=== PATIENT | male | born 1990 | race Caucasian/White ===

== ENCOUNTER 2016-05-29 19:33 | Emergency (ER) | payer MEDICARE, OTHER ==
[2016-05-29 20:50] VITALS: BP 131/69
--- NOTE | 2016-05-29 21:05 | UC ---
FLU HPI - HPI Summary HPI Summary: Pt c/o URI like symptoms that began 5 days ago. Pt states that his symptoms are not improving and that he is feeling worse today. - History of Current Complaint Chief Complaint: UCGeneralIllness Stated Complaint: COLD Time Seen by Provider: 05/29/16 20:43 Hx Obtained From: Patient Onset/Duration: Gradual Onset, Lasting Days Severity Currently: Mild Severity Initially: Mild Associated Signs & Symptoms: Positive: Cough, Sore Throat, Nasal Congestion - Allergy/Home Medications Allergies/Adverse Reactions: Allergies Allergy/AdvReac Type Severity Reaction Status Date / Time Bupropion [From Wellbutrin] Allergy Severe Anaphylatic Verified 05/29/16 20:44 Shock PMH/Surg Hx/FS Hx/Imm Hx Previously Healthy: Yes Psychological History Of: Reports: Bipolar Disorder, Schizophrenia - Surgical History Surgical History: Yes Surgery Procedure, Year, and Place: T&A age 17 - Family History Known Family History: Positive: Unknown - patient does not know his family history, he is intellectualy impaired, Other - [facility] for URI - Social History Alcohol Use: Occasionally Substance Use Type: None Smoking Status (MU): Never Smoked Tobacco Have You Smoked in the Last Year: No Household Exposure Type: Cigarettes Review of Systems Constitutional: Chills, Fatigue Skin: Negative Eyes: Negative ENT: Sore Throat, Other - nasal congestion Respiratory: Cough Cardiovascular: Negative Genitourinary: Negative Neurovascular: Negative Musculoskeletal: Negative Neurological: Negative Psychological: Negative All Other Systems Reviewed And Are Negative: Yes Physical Exam Triage Information Reviewed: Yes Appearance: Well-Appearing Vital Signs: Initial Vital Signs Temp 99.1 F 05/29/16 20:44 Pulse 80 05/29/16 20:44 Resp 18 05/29/16 20:44 BP 131/69 05/29/16 20:44 Pulse Ox 100 05/29/16 20:44 Eye Exam: Normal, Other - strabismus, ENT Exam: Other ENT: Positive: Pharyngeal erythema, Nasal congestion Neck exam: Normal Respiratory Exam: Normal Cardiovascular Exam: Normal Musculoskeletal Exam: Normal Neurological Exam: Normal Psychological Exam: Normal Skin Exam: Normal Flu Course/Dx - Differential Dx/Diagnosis Differential Diagnosis/HQI/PQRI: Influenza, Upper Respiratory Infection Provider Diagnoses: URI Discharge - Discharge Plan Condition: Stable Disposition: HOME Patient Education Materials: Upper Respiratory Infection (ED) Referrals: Lucinda Cloud MD [Primary Care Provider] -
== END 2016-05-29 21:24 | disposition home or self-care (01) ==
LOC: UCCORT 19:33
DX: J06.9 Acute upper respiratory infection, unspecified (principal); Z88.8 Allergy status to other drugs, medicaments and biological substances; Z77.22 Contact with and (suspected) exposure to environmental tobacco smoke (acute) (chronic)
CPT/HCPCS: 87502; 99211; G0463

== ENCOUNTER 2016-10-13 19:08 | Emergency (ER) | payer MEDICARE, MEDICAID ==
[2016-10-13 19:16] VITALS: BP 129/66
--- NOTE | 2016-10-13 19:30 | ED ---
HPI Chest Pain - HPI Summary HPI Summary: 26 YEAR OLD MALE PRESENTS WITH LEFT SIDED CHEST PAIN. - History of Current Complaint Chief Complaint: UCGeneralIllness Time Seen by Provider: 10/13/16 19:29 - Allergy/Home Medications Allergies/Adverse Reactions: Allergies Allergy/AdvReac Type Severity Reaction Status Date / Time Bupropion [From Wellbutrin] Allergy Severe Anaphylatic Verified 05/29/16 20:44 Shock Clindamycin Allergy Anaphylatic Verified 10/13/16 19:16 Shock PMH/Surg Hx/FS Hx/Imm Hx Psychiatric History: Reports: Hx Schizophrenia, Hx Bipolar Disorder - Surgical History Surgery Procedure, Year, and Place: T&A age 17 Infectious Disease History: No Infectious Disease History: Denies: Hx Clostridium Difficile, Hx Hepatitis, Hx Human Immunodeficiency Virus (HIV), Hx of Known/Suspected MRSA, Hx Shingles, Hx Tuberculosis, Hx Known/ Suspected VRE, Hx Known/Suspected VRSA, History Other Infectious Disease, Traveled Outside the [place] in Last 30 Days - Family History Known Family History: Positive: Unknown - patient does not know his family history, he is intellectualy impaired, Other - psotive [facility] for URI - Social History Alcohol Use: Occasionally Substance Use Type: Reports: None Smoking Status (MU): Never Smoked Tobacco Have You Smoked in the Last Year: No Review of Systems Positive: Chest Pain All Other Systems Reviewed And Are Negative: Yes Physical Exam Triage Information Reviewed: Yes Vital Signs On Initial Exam: Initial Vitals Temp Pulse Resp BP Pulse Ox 37.2 C 91 16 129/66 98 10/13/16 19:11 10/13/16 19:11 10/13/16 19:11 10/13/16 19:11 10/13/16 19:11 Cardiovascular: Positive: Bradycardia Diagnostics - Vital Signs Vital Signs Temp Pulse Resp BP Pulse Ox 10/13/16 19:11 37.2 C 91 16 129/66 98 - Laboratory Lab Statement: Any lab studies that have been ordered have been reviewed, and results considered in the medical decision making process. Chest Pain Course/Dx - Diagnoses Provider Diagnoses: Chest pain Discharge - Discharge Plan Condition: Critical Disposition: [facility]
== END 2016-10-13 20:05 | disposition short-term general hospital (02) ==
LOC: UCCORT 19:08
DX: R07.9 Chest pain, unspecified (principal); Z88.1 Allergy status to other antibiotic agents; Z88.8 Allergy status to other drugs, medicaments and biological substances; R00.1 Bradycardia, unspecified
CPT/HCPCS: 93005; 99213; G0463

== ENCOUNTER 2016-10-22 17:24 | Emergency (ER) | payer MEDICARE, MEDICAID ==
[2016-10-22 19:04] VITALS: BP 146/76
[2016-10-22] MEDS ORDERED: Ibuprofen TAB* 600 MG PO ONE (19:16)
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
--- NOTE | 2016-10-22 20:07 | RAD ---
INDICATION: Trauma. COMPARISON: None. TECHNIQUE: 4 views of each were obtained. FINDINGS: There is no radiographically apparent fracture involving the bones of either hand. On the AP views there is fairly symmetrical flexion at the thumb metacarpal phalangeal joint with extension of the thumb interphalangeal joint. At the left hand there is flexion at the left small finger proximal interphalangeal joint. The remaining visualized bones are intact. IMPRESSION: 1. No definite fracture or dislocation involving the bilateral hands. 2. Fairly symmetric flexion extension morphology involving the thumbs. This may simply be due to patient positioning at the time of image acquisition. Please correlate to physical examination. If the patient's symptoms persist, follow-up imaging is recommended.
[2016-10-22] MEDS ORDERED: Tetan/Diph/Pertus SYR(Tdap)* 0.5 ML SYR(BOOSTRIX) use SYR IM ONE (20:12)
== END 2016-10-22 20:30 | disposition home or self-care (01) ==
LOC: UCCORT 17:24
DX: S60.221A Contusion of right hand, initial encounter (principal); S60.222A Contusion of left hand, initial encounter; S60.512A Abrasion of left hand, initial encounter; S60.511A Abrasion of right hand, initial encounter; Z23 Encounter for immunization; V18.0XXA Pedal cycle driver injured in noncollision transport accident in nontraffic accident, initial encounter; Y92.9 Unspecified place or not applicable; E03.9 Hypothyroidism, unspecified; Z88.1 Allergy status to other antibiotic agents; Z88.8 Allergy status to other drugs, medicaments and biological substances
CPT/HCPCS: 90471; 90715; 99212; A9270-GY; G0463

== ENCOUNTER 2016-10-30 17:17 | Emergency (ER) | payer MEDICARE, OTHER ==
[2016-10-30 17:33] VITALS: BP 125/67
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
== END 2016-10-30 18:13 | disposition home or self-care (01) ==
LOC: UCCORT 17:17
DX: S60.512D Abrasion of left hand, subsequent encounter (principal); V18.0XXD Pedal cycle driver injured in noncollision transport accident in nontraffic accident, subsequent encounter; Z88.1 Allergy status to other antibiotic agents
CPT/HCPCS: 99212; G0463

== ENCOUNTER 2016-11-20 18:05 | Emergency (ER) | payer MEDICARE, MEDICAID ==
[2016-11-20] MEDS ORDERED: Ketorolac INJ* 60 MG/2 ML VIAL IM ONE (18:13)
[2016-11-20] MEDS ORDERED: Ondansetron ODT TAB* 4 MG PO ONE (18:14)
--- NOTE | 2016-11-20 18:46 | UC ---
Ear Complaint HPI - HPI Summary HPI Summary: 26 y/o male PMHX seizures and hypothyroidism presents to the urgent care c/o severe LF ear pain for the past week. Mother states he has been taking amoxicillin 875mg PO BID since 10/30/2016 for otitis media. He still taking it w/ o any improvement since this morning he woke up w/ severe pain. Pt is in severe distress now due to pain. Now with vomiting at the clinic. Pt states his pain is 10/10. Mother and PT denies fever, SOB, chest pain, abdominal pain, diarrhea. dizziness, ALBRIGHT. Mother has not other complains. . - History of Current Complaint Chief Complaint: UCEar Stated Complaint: LEFT EAR PAIN Time Seen by Provider: 11/20/16 18:43 Hx Obtained From: Patient Onset/Duration: Gradual Onset, Lasting Weeks, Still Present Severity Initially: Mild Severity Currently: Severe Pain Intensity: 10 Pain Scale Used: 0-10 Numeric Aggravating Factors: Nothing Alleviating Factors: Nothing - Allergies/Home Medications Allergies/Adverse Reactions: Allergies Allergy/AdvReac Type Severity Reaction Status Date / Time Bupropion [From Wellbutrin] Allergy Severe Anaphylatic Verified 11/20/16 18:23 Shock Clindamycin Allergy Anaphylatic Verified 11/20/16 18:23 Shock Diphenhydramine Allergy Difficulty Verified 11/20/16 18:23 [From Benadryl] Breathing Home Medications: Home Medications Ampicillin CAP* [Ampicillin Cap*] 875 mg PO BID 11/20/16 [History Confirmed 03/27] PMH/Surg Hx/FS Hx/Imm Hx Previously Healthy: Yes Endocrine History: Hypothyroidism Neurological History: Seizures Psychological History: Bipolar Disorder - Surgical History Surgical History: Yes Surgery Procedure, Year, and Place: T&A age 17 - Family History Known Family History: Positive: Unknown - patient does not know his family history, he is intellectualy impaired - Social History Occupation: Disabled Lives: With Family Alcohol Use: Occasionally Substance Use Type: None Smoking Status (MU): Never Smoked Tobacco Have You Smoked in the Last Year: No Household Exposure Type: Cigarettes - Immunization History Most Recent Tetanus Shot: Unknown Review of Systems Constitutional: Negative Skin: Negative Eyes: Negative ENT: Ear Ache - LF ear pain Respiratory: Negative Cardiovascular: Negative Gastrointestinal: Negative Genitourinary: Negative Motor: Negative Neurovascular: Negative Musculoskeletal: Negative Neurological: Negative Psychological: Negative All Other Systems Reviewed And Are Negative: Yes Physical Exam Triage Information Reviewed: Yes Appearance: Well-Appearing, Well-Nourished, Pain Distress - severe Vital Signs: Initial Vital Signs Temp 97.8 F 11/20/16 18:26 Pulse 112 11/20/16 18:26 Resp 28 11/20/16 18:26 BP 144/105 11/20/16 18:26 Pulse Ox 100 11/20/16 18:26 Vital Signs Reviewed: Yes Eye Exam: Normal Eyes: Positive: Conjunctiva Clear - PERRLA, EOMI ENT: Positive: Hearing grossly normal, Pharynx normal, TMs normal - RT external ear canal and TM WNL, LF external ear canal with moderate erythema, mild yellowish drainage. LF TM WNL. Negative: Nasal congestion, Nasal drainage Dental Exam: Normal Neck exam: Normal Neck: Positive: Supple, Nontender, No Lymphadenopathy Respiratory Exam: Normal Respiratory: Positive: Chest non-tender, Lungs clear, Normal breath sounds Cardiovascular Exam: Normal Cardiovascular: Positive: RRR, No Murmur, Pulses Normal Abdominal Exam: Normal Abdomen Description: Positive: Nontender, No Organomegaly, Soft. Negative: CVA Tenderness (R), CVA Tenderness (L) Bowel Sounds: Positive: Present Musculoskeletal Exam: Normal Musculoskeletal: Positive: Strength Intact, ROM Intact, No Edema Neurological Exam: Normal Psychological Exam: Normal Skin Exam: Normal Ear Complaint Course/Dx - Course Course Of Treatment: 26 y/o male PMHX seizures and hypothyroidism presents to the urgent care c/o severe LF ear pain for the past week. Mother states he has been taking amoxicillin 875mg PO BID since 10/30/2016 for otitis media. He still taking it w/o any improvement. This morning he woke up w/ severe pain. Pt is in severe distress now due to pain. Now with vomiting at the clinic. Pt states his pain is 10/10. Mother and PT denies fever, SOB, chest pain, abdominal pain , diarrhea. dizziness, ALBRIGHT.HX obtained. Pt given Toradol Im inj and Zofran Po to alleviate symptoms. After 15min Pt pain decrease and vomiting stopped. Pt felt better. Pt Rx Corticosporin Otic drops, Ibuprofen PO and Compazine to alleviate symptoms of Otitis externa and vomiting. Advised to finish the full course of ABX he has at home. Mother understood and agreed. - Differential Dx/Diagnosis Differential Diagnosis/HQI/PQRI: Barotrauma, Cerumen Impaction, Mastoiditis, Otitis Externa, Otitis Media Provider Diagnoses: 1-Acute otitis externa. 2-Vomiting. 3-elevated blood pressure w/o HX of HTN Discharge - Discharge Plan Condition: Stable Disposition: HOME Prescriptions: Ibuprofen TAB* [Motrin TAB* 800 MG] 800 mg PO Q6H #20 tab Neomyc/Polym/HC 1% OTIC SUSP* [Cortisporin Otic Susp 1%*] 4 drop BOTH EARS QID # 1 btl Prochlorperazine TAB* [Compazine Tab*] 5 mg PO Q8H PRN #9 tab PRN Reason: Vomiting Patient Education Materials: Otitis Externa (ED), Low Sodium Diet (ED) Referrals: Tana Shultz MD [Medical Doctor] - 3 Days Additional Instructions: 1-Please apply otic drops as directed. Take ibuprofen PO after meals to alleviate pain and swelling. Take the Zofran PO if your continue with nausea and vomiting. If symptoms do not improve or worsen please f/u with Dr Harmon in 3 days for further management. 2-Your BP is elevated today please decrease salt intake, monitor BP and f/u with PCP for further evaluation and treatment.
[2016-11-20 19:02] VITALS: BP 136/66
== END 2016-11-20 19:13 | disposition home or self-care (01) ==
LOC: UCCORT 18:05
DX: H60.502 Unspecified acute noninfective otitis externa, left ear (principal); R11.10 Vomiting, unspecified; R03.0 Elevated blood-pressure reading, without diagnosis of hypertension; E03.9 Hypothyroidism, unspecified; R56.9 Unspecified convulsions; F31.9 Bipolar disorder, unspecified; Z88.1 Allergy status to other antibiotic agents; Z88.8 Allergy status to other drugs, medicaments and biological substances; Z77.22 Contact with and (suspected) exposure to environmental tobacco smoke (acute) (chronic)
CPT/HCPCS: 96372; 99212; A9270-GY; G0463; J1885

== ENCOUNTER 2016-12-23 18:56 | Emergency (ER) | payer MEDICARE ==
[2016-12-23 19:22] VITALS: BP 126/74
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
[2016-12-23] MEDS ORDERED: Amoxicillin PO (*) 500 MG CAP PO ONE (20:34)
== END 2016-12-23 20:49 | disposition home or self-care (01) ==
LOC: UCCORT 18:56
DX: K04.7 Periapical abscess without sinus (principal); K03.81 Cracked tooth; H61.22 Impacted cerumen, left ear; S50.811A Abrasion of right forearm, initial encounter; V19.9XXA Pedal cyclist (driver) (passenger) injured in unspecified traffic accident, initial encounter; Y92.9 Unspecified place or not applicable; Z11.4 Encounter for screening for human immunodeficiency virus [HIV]
CPT/HCPCS: 36415; 86703; 99213; A9270-GY; G0463

== ENCOUNTER 2017-01-02 18:35 | Emergency (ER) | payer MEDICARE, OTHER ==
[2017-01-02 18:51] VITALS: BP 121/82
--- NOTE | 2017-01-02 19:05 | UC ---
Throat Pain/Nasal [place]ito HPI - HPI Summary HPI Summary: ST, nasal congestion, cough, and trouble breathing starting 4-5 days ago. Has been using inhaler every 4 hours without relief. No fevers. Pt has seizure d/o, last seizure was 2.5 weeks ago. - History of Current Complaint Stated Complaint: THROAT,COUGH Time Seen by Provider: 01/02/17 18:43 Hx Obtained From: Patient Onset/Duration: Gradual Onset, Lasting Days Severity: Moderate Cough: Productive Associated Signs & Symptoms: Positive: Wheezing, Hoarseness, Nasal Discharge. Negative: Fever, Vomiting, Rash - Allergies/Home Medications Allergies/Adverse Reactions: Allergies Allergy/AdvReac Type Severity Reaction Status Date / Time Bupropion [From Wellbutrin] Allergy Severe Anaphylatic Verified 01/02/17 18:47 Shock Clindamycin Allergy Anaphylatic Verified 01/02/17 18:47 Shock Diphenhydramine Allergy Difficulty Verified 01/02/17 18:47 [From Benadryl] Breathing PMH/Surg Hx/FS Hx/Imm Hx Endocrine History: Hypothyroidism Cardiovascular History: Myocardial Infarction Neurological History: Seizures - Surgical History Surgical History: Yes Surgery Procedure, Year, and Place: T&A age 17 - Family History Known Family History: Positive: Unknown - patient does not know his family history, he is intellectualy impaired, Other - [facility] for URI - Social History Occupation: Disabled Lives: With Family Alcohol Use: None Substance Use Type: None Smoking Status (MU): Never Smoked Tobacco Have You Smoked in the Last Year: No Household Exposure Type: Cigarettes - Immunization History Most Recent Tetanus Shot: 10/22/16 Review of Systems Constitutional: Negative Skin: Negative Eyes: Negative ENT: Sore Throat, Nasal Discharge Respiratory: Shortness Of Breath, Cough, Other Cardiovascular: Negative Gastrointestinal: Negative Genitourinary: Negative Motor: Negative Neurovascular: Negative Musculoskeletal: Negative Neurological: Negative Psychological: Negative Is Patient Immunocompromised?: No All Other Systems Reviewed And Are Negative: Yes Physical Exam Triage Information Reviewed: Yes Appearance: Well-Appearing, No Pain Distress, Other: - poor hygeine Vital Signs: Initial Vital Signs Temp 99.9 F 01/02/17 18:48 Pulse 92 01/02/17 18:48 Resp 16 01/02/17 18:48 BP 121/82 01/02/17 18:48 Pulse Ox 97 01/02/17 18:48 Vital Signs Reviewed: Yes Eye Exam: Normal Eyes: Positive: Conjunctiva Clear ENT: Positive: Hearing grossly normal, Pharyngeal erythema - mild, Nasal congestion, TMs normal - visible sclerosis Neck exam: Normal Neck: Positive: Supple, Nontender, No Lymphadenopathy Respiratory Exam: Other - cough Respiratory: Positive: No respiratory distress, No accessory muscle use Cardiovascular Exam: Normal Cardiovascular: Positive: RRR, No Murmur Musculoskeletal Exam: Normal Neurological Exam: Normal Neurological: Positive: Alert Psychological Exam: Normal Skin Exam: Normal Throat Pain/Nasal Course/Dx - Differential Dx/Diagnosis Provider Diagnoses: URI, likely viral Discharge - Discharge Plan Condition: Stable Disposition: HOME Prescriptions: predniSONE TAB* [Deltasone TAB*] 40 mg PO DAILY #8 tab Patient Education Materials: Upper Respiratory Infection (ED) Referrals: Мария Harmon MD [Primary Care Provider] - 5 Days Additional Instructions: Start the prednisone TOMORROW. This should help with your breathing and ( possibly) your cough. It can take 2-3 weeks to fully recover from a respiratory virus. You should not have any new fevers or worsening symptoms.
== END 2017-01-02 19:17 | disposition home or self-care (01) ==
LOC: UCCORT 18:35
DX: J06.9 Acute upper respiratory infection, unspecified (principal); E03.9 Hypothyroidism, unspecified; I21.3 ST elevation (STEMI) myocardial infarction of unspecified site; R56.9 Unspecified convulsions; Z88.1 Allergy status to other antibiotic agents; Z88.8 Allergy status to other drugs, medicaments and biological substances; Z77.22 Contact with and (suspected) exposure to environmental tobacco smoke (acute) (chronic)
CPT/HCPCS: 87651; 99212; G0463

== ENCOUNTER 2017-01-12 19:16 | Emergency (ER) | payer MEDICARE, MEDICAID ==
[2017-01-12 19:58] VITALS: BP 138/78
--- NOTE | 2017-02-02 11:23 | UC ---
Skin Complaint HPI - HPI Summary HPI Summary: Patient presents to the with CC of small laceration to the lip and the right finger from his tooth today. He is unsure how he sustained the injuries, but states he likely fell into the his hand when he tripped. No blood loss per patient. He states this has happened before. Denies other injuries at this time. Denies hitting his head or LOC. - History of Current Complaint Chief Complaint: UCDentalProblem Time Seen by Provider: 01/12/17 20:26 Stated Complaint: LIP AND FINGER LAC Hx Obtained From: Patient Onset/Duration: Sudden Onset Timing: Constant Onset Severity: Mild Current Severity: Mild Pain Intensity: 1 Pain Scale Used: 0-10 Numeric Location: Diffuse - right lip/ right hand Aggravating Factor(s): Nothing Alleviating Factor(s): Nothing Associated Signs & Symptoms: Positive: Negative Related History: Trauma - Allergy/Home Medications Allergies/Adverse Reactions: Allergies Allergy/AdvReac Type Severity Reaction Status Date / Time Bupropion [From Wellbutrin] Allergy Severe Anaphylatic Verified 01/21/17 15:08 Shock Clindamycin Allergy Anaphylatic Verified 01/21/17 15:08 Shock Diphenhydramine Allergy Difficulty Verified 01/21/17 15:08 [From Benadryl] Breathing Review of Systems Constitutional: Negative Skin: Negative Respiratory: Negative Cardiovascular: Negative Gastrointestinal: Negative Neurovascular: Negative Musculoskeletal: Negative Neurological: Negative Psychological: Negative Is Patient Immunocompromised?: No All Other Systems Reviewed And Are Negative: Yes PMH/Surg Hx/FS Hx/Imm Hx Previously Healthy: Yes - Surgical History Surgical History: Yes Surgery Procedure, Year, and Place: T&A age 17 - Family History Known Family History: Positive: Unknown - patient does not know his family history, he is intellectualy impaired, Other - psotive [facility] for URI - Social History Occupation: Employed Part-time Lives: With Family Alcohol Use: Rare Substance Use Type: None Smoking Status (MU): Never Smoked Tobacco Have You Smoked in the Last Year: No Household Exposure Type: Cigarettes - Immunization History Most Recent Tetanus Shot: 10/22/16 Physical Exam Triage Information Reviewed: Yes Appearance: Well-Appearing, Well-Nourished Vital Signs: Initial Vital Signs Temp 99.2 F 01/12/17 19:54 Pulse 75 01/12/17 19:54 Resp 18 01/12/17 19:54 BP 138/78 01/12/17 19:54 Pulse Ox 100 01/12/17 19:54 Vital Signs Reviewed: Yes Eye Exam: Normal Eyes: Positive: Conjunctiva Clear Neck exam: Normal Neck: Positive: Supple Respiratory Exam: Normal Respiratory: Positive: Chest non-tender, Lungs clear Neurological Exam: Normal Neurological: Positive: Alert Psychological: Positive: Normal Response To Family, Age Appropriate Behavior Skin Exam: Normal Course/Dx - Course Course Of Treatment: Patient presents with .5cm superificial abrasion to the right lower lip and 1cm superficial laceration to the right hand without need of adhesive or sutures. He is encouraged to buy dental wax for the sharp tooth and is encouraged to return to the dentist to obtain a filing down of the tooth so it is not sharp. he agrees with plan and is OK with discharge. - Diagnoses Provider Diagnoses: Abrasion to the lip Discharge - Discharge Plan Condition: Stable Disposition: HOME Referrals: Мария Harmon MD [Primary Care Provider] - Additional Instructions: OVER THE COUNTER DENTAL WAX APPLY OVER THE METAL PIECE IN THE TOOTH FOLLOW UP WITH DENTIST CORNELL
== END 2017-01-12 20:30 | disposition home or self-care (01) ==
LOC: UCCORT 19:16
DX: S00.511A Abrasion of lip, initial encounter (principal); S61.411A Laceration without foreign body of right hand, initial encounter; X58.XXXA Exposure to other specified factors, initial encounter; Y93.9 Activity, unspecified; Y92.9 Unspecified place or not applicable; Z88.1 Allergy status to other antibiotic agents; Z88.8 Allergy status to other drugs, medicaments and biological substances; Z77.22 Contact with and (suspected) exposure to environmental tobacco smoke (acute) (chronic)
CPT/HCPCS: 99211; G0463

== ENCOUNTER 2017-01-16 19:43 | Emergency (ER) | payer MEDICARE, MEDICAID ==
[2017-01-16 19:58] VITALS: BP 144/77
--- NOTE | 2017-01-16 20:02 | UC ---
Shoulder Pain HPI - History of Current Complaint Chief Complaint: UCUpperExtremity Stated Complaint: LEFT ARM PAIN - Allergies/Home Medications Allergies/Adverse Reactions: Allergies Allergy/AdvReac Type Severity Reaction Status Date / Time Bupropion [From Wellbutrin] Allergy Severe Anaphylatic Verified 01/16/17 19:58 Shock Clindamycin Allergy Anaphylatic Verified 01/16/17 19:58 Shock Diphenhydramine Allergy Difficulty Verified 01/16/17 19:58 [From Benadryl] Breathing PMH/Surg Hx/FS Hx/Imm Hx - Surgical History Surgical History: Yes Surgery Procedure, Year, and Place: T&A age 17 - Family History Known Family History: Positive: Unknown - patient does not know his family history, he is intellectualy impaired, Other - [facility] for URI - Social History Alcohol Use: Rare Substance Use Type: None Smoking Status (MU): Never Smoked Tobacco Have You Smoked in the Last Year: No Household Exposure Type: Cigarettes - Immunization History Most Recent Tetanus Shot: 10/22/16 Physical Exam Vital Signs: Initial Vital Signs Temp 99.2 F 01/16/17 19:49 Pulse 87 01/16/17 19:49 Resp 18 01/16/17 19:49 BP 144/77 01/16/17 19:49
== END 2017-01-16 20:27 | disposition home or self-care (01) ==
LOC: UCCORT 19:43
DX: S46.912A Strain of unspecified muscle, fascia and tendon at shoulder and upper arm level, left arm, initial encounter (principal); I10 Essential (primary) hypertension; F17.210 Nicotine dependence, cigarettes, uncomplicated; X58.XXXA Exposure to other specified factors, initial encounter; Z88.1 Allergy status to other antibiotic agents; Z88.8 Allergy status to other drugs, medicaments and biological substances
CPT/HCPCS: 99212; G0463

== ENCOUNTER 2017-01-21 14:51 | Emergency (ER) | payer MEDICARE, MEDICAID ==
[2017-01-21 15:08] VITALS: BP 139/78
--- NOTE | 2017-01-21 16:17 | RAD ---
Indication: Woke up with LEFT side neck pain. Comparison: April 02, 2009 CT. Technique: AP, open-mouth odontoid, lateral, and oblique views cervical spine. Report: Kyphosis without facet subluxation at any level. Negative for fracture or focal osseous lesion. Preserved disc spaces. Unremarkable prevertebral soft tissue contours. IMPRESSION: Kyphosis new compared with the 2009 exam without facet subluxation at any level. The exam is otherwise unremarkable.
--- NOTE | 2017-01-21 16:47 | UC ---
Neck Pain HPI - HPI Summary HPI Summary: AWOKE THIS MORNING WITH NECK PAIN AND MUSCLE SPASMS ON LEFT SIDE. NO CHEST PAIN. NO FEVER. NO RASH. NO SHORTNESS OF BREATH. NO KNOWN TRAUMA OR INJURY. - History of Current Complaint Chief Complaint: UCUpperExtremity Stated Complaint: NECK PAIN Time Seen by Provider: 01/21/17 15:17 Hx Obtained From: Patient, Family/[facility] Manager Onset/Duration: Sudden Onset, Lasting Hours Severity: Moderate Pain Intensity: 10 Pain Scale Used: 0-10 Numeric Location: Discrete At: - LEFT PARASPINAL CERVICAL MUSCLES Character: Dull, Aching, Stiff, Spasmotic Aggravating Factors: Nothing Alleviating Factors: Nothing Associated Signs & Symptoms: Positive: Negative. Negative: Bruising, Fever, Nuchal Rigity - Risk Factors Meningitis Risk Factors: Negative - Allergies/Home Medications Allergies/Adverse Reactions: Allergies Allergy/AdvReac Type Severity Reaction Status Date / Time Bupropion [From Wellbutrin] Allergy Severe Anaphylatic Verified 01/21/17 15:08 Shock Clindamycin Allergy Anaphylatic Verified 01/21/17 15:08 Shock Diphenhydramine Allergy Difficulty Verified 01/21/17 15:08 [From Benadryl] Breathing PMH/Surg Hx/FS Hx/Imm Hx Previously Healthy: Yes - Surgical History Surgical History: Yes Surgery Procedure, Year, and Place: T&A age 17 - Family History Known Family History: Positive: Unknown - patient does not know his family history, he is intellectualy impaired, Other - [facility]otive [facility] for URI - Social History Occupation: Disabled Lives: With Family Alcohol Use: Occasionally Substance Use Type: None Smoking Status (MU): Never Smoked Tobacco Have You Smoked in the Last Year: No Household Exposure Type: Cigarettes - Immunization History Most Recent Tetanus Shot: 10/22/16 Review Of Systems Constitutional: Positive: Negative Skin: Positive: Negative Eyes: Positive: Negative ENT: Positive: Negative Respiratory: Positive: Negative Cardiovascular: Positive: Negative Gastrointestinal: Positive: Negative Genitourinary: Positive: Negative Musculoskeletal: Positive: Arthralgia, Myalgia Neurological: Positive: Negative Psychological: Positive: Negative All Other Systems Reviewed And Are Negative: Yes Physical Exam Triage Information Reviewed: Yes Appearance: Well-Appearing, Well-Nourished, Pain Distress Vital Signs: Initial Vital Signs Temp 99.3 F 01/21/17 15:03 Pulse 73 01/21/17 15:03 Resp 22 01/21/17 15:03 BP 139/78 01/21/17 15:03 Pulse Ox 99 01/21/17 15:03 Vital Signs Reviewed: Yes Eye Exam: Normal ENT Exam: Normal ENT: Positive: Normal ENT inspection Dental Exam: Normal Neck exam: Normal Neck: Positive: Supple, Nontender, No Lymphadenopathy Respiratory Exam: Normal Respiratory: Positive: Chest non-tender, Lungs clear, Normal breath sounds, No respiratory distress, No accessory muscle use Cardiovascular Exam: Normal Cardiovascular: Positive: RRR, No Murmur, Pulses Normal, Brisk Capillary Refill Abdominal Exam: Normal Musculoskeletal: Positive: Strength Intact, ROM Intact, No Edema, ROM Limited @ - LEF, Other: - TENDERNESS TO PALPATION LEFT PARASPINAL CERVICAL MM Neurological Exam: Normal Psychological Exam: Normal Skin Exam: Normal Neck Pain Course/Dx - Differential Dx/Diagnosis Differential Dx/HQI/PQRI: Cervical Fracture, Sprain, Strain, Torticollis Provider Diagnoses: LEFT TORTICOLLIS. CERVICAL KYPHOSIS. Discharge - Discharge Plan Condition: Stable Disposition: HOME Prescriptions: Diazepam TAB(*) [Valium TAB(*)] 5 mg PO TID PRN #12 tab MDD THREE TABS PRN Reason: Spasms Patient Education Materials: Spasmodic Torticollis (ED) Referrals: Мария Harmon MD [Primary Care Provider] -
== END 2017-01-21 16:35 | disposition home or self-care (01) ==
LOC: UCCORT 14:51
DX: M43.6 Torticollis (principal); M40.202 Unspecified kyphosis, cervical region; Z88.1 Allergy status to other antibiotic agents; Z88.8 Allergy status to other drugs, medicaments and biological substances; Z77.22 Contact with and (suspected) exposure to environmental tobacco smoke (acute) (chronic)
CPT/HCPCS: 72050; 99213; G0463

== ENCOUNTER 2017-03-10 15:55 | Emergency (ER) | payer MEDICARE, OTHER ==
[2017-03-10 16:11] VITALS: BP 134/71
--- NOTE | 2017-03-10 17:08 | RAD ---
INDICATION: Left thumb injury COMPARISON: None TECHNIQUE: AP, lateral, and oblique views were obtained. FINDINGS: There is no acute bony change. 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 The soft tissues are intact IMPRESSION: NO ACUTE BONY CHANGE.
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
== END 2017-03-10 17:45 | disposition home or self-care (01) ==
LOC: UCCORT 15:55
DX: S63.602A Unspecified sprain of left thumb, initial encounter (principal); X58.XXXA Exposure to other specified factors, initial encounter; Y93.55 Activity, bike riding; Y92.9 Unspecified place or not applicable; Z88.1 Allergy status to other antibiotic agents; Z88.8 Allergy status to other drugs, medicaments and biological substances; Z77.22 Contact with and (suspected) exposure to environmental tobacco smoke (acute) (chronic)
CPT/HCPCS: 99211; G0463

== ENCOUNTER 2017-03-17 16:56 | Emergency (ER) | payer OTHER ==
[2017-03-17 17:32] VITALS: BP 134/72
--- NOTE | 2017-03-17 17:46 | UC ---
Skin Complaint HPI - HPI Summary HPI Summary: Pt c/o painful abscess to posterior upper right thigh. - History of Current Complaint Chief Complaint: UCSkin Time Seen by Provider: 03/17/17 17:35 Stated Complaint: RT LEG SKIN COMPLAINT Hx Obtained From: Patient Onset/Duration: Sudden Onset, Still Present Skin Exposure Onset/Duration: Days Ago Timing: Constant Onset Severity: Mild Current Severity: Mild Location: Discrete - right upper posterior right thigh Character: Swelling, Redness, Raised, Painful Aggravating Factor(s): Touch Alleviating Factor(s): Other - pt's mother "popped" abscess today prior to arrival. Associated Signs & Symptoms: Positive: Drainage, Tenderness - Allergy/Home Medications Allergies/Adverse Reactions: Allergies Allergy/AdvReac Type Severity Reaction Status Date / Time Bupropion [From Wellbutrin] Allergy Severe Anaphylatic Verified 03/17/17 17:32 Shock Clindamycin Allergy Anaphylatic Verified 03/17/17 17:32 Shock Diphenhydramine Allergy Difficulty Verified 03/17/17 17:32 [From Benadryl] Breathing Review of Systems Constitutional: Negative Skin: Other - abscess Eyes: Negative ENT: Negative Respiratory: Negative Cardiovascular: Negative Gastrointestinal: Negative Genitourinary: Negative Motor: Negative Neurovascular: Negative Musculoskeletal: Negative Neurological: Negative Psychological: Negative Is Patient Immunocompromised?: No All Other Systems Reviewed And Are Negative: Yes PMH/Surg Hx/FS Hx/Imm Hx Previously Healthy: Yes - Surgical History Surgical History: Yes Surgery Procedure, Year, and Place: T&A age 17 - Family History Known Family History: Positive: Unknown - patient does not know his family history, he is intellectualy impaired, Respiratory Disease Negative: Other - NO JOINT LAXITY - Social History Occupation: Employed Full-time Lives: With Family Alcohol Use: Occasionally Substance Use Type: None Smoking Status (MU): Never Smoked Tobacco Have You Smoked in the Last Year: No Household Exposure Type: Cigarettes - Immunization History Most Recent Influenza Vaccination: 8147-3401 Most Recent Tetanus Shot: 10/22/16 Physical Exam Triage Information Reviewed: Yes Appearance: Well-Appearing Vital Signs: Initial Vital Signs Temp 99.1 F 03/17/17 17:23 Pulse 80 03/17/17 17:23 Resp 17 03/17/17 17:23 BP 134/72 03/17/17 17:23 Pulse Ox 99 12/07/17 17:23 Vital Signs Reviewed: Yes ENT Exam: Normal Neck exam: Normal Respiratory Exam: Normal Cardiovascular Exam: Normal Musculoskeletal Exam: Normal Neurological Exam: Normal Psychological Exam: Normal Skin Exam: Other - abscess to right upper posterior thigh, without palpable flucuant mass, Course/Dx - Differential Diagnoses - Skin Complaint Differential Diagnoses: Abscess, Other - folliculitis - Diagnoses Provider Diagnoses: folliculitis. MRSA? Discharge - Discharge Plan Condition: Stable Disposition: HOME Prescriptions: Sulfamethox/Trimethoprim DS* [Bactrim DS 800/160 TAB*] 1 tab PO Q12H #14 tab Patient Education Materials: Folliculitis (ED) Referrals: Мария Harmon MD [Primary Care Provider] - If Needed
== END 2017-03-17 18:06 | disposition home or self-care (01) ==
LOC: UCCORT 16:56
DX: L73.9 Follicular disorder, unspecified (principal); Z88.8 Allergy status to other drugs, medicaments and biological substances; Z88.1 Allergy status to other antibiotic agents
CPT/HCPCS: 99212; G0463

== ENCOUNTER 2017-03-27 17:24 | Emergency (ER) | payer OTHER ==
[2017-03-27 17:33] VITALS: BP 144/77
[2017-03-27] MEDS ORDERED: methylPREDNISolone 125 MG* 2 ML VIAL IV ONE (17:48)
[2017-03-27] MEDS ORDERED: methylPREDNISolone 125 MG* 2 ML VIAL IM ONE (17:50)
--- NOTE | 2017-03-27 17:53 | UC ---
Skin Complaint HPI - HPI Summary HPI Summary: rash/hives all over body except face. took otc anti itch cream with some relief but rash still there no new detergents/soap but mom has cats and he thinks has had steroids before without any s/e. - History of Current Complaint Chief Complaint: UCSkin Time Seen by Provider: 03/27/17 17:43 Stated Complaint: SKIN COMPLAINT Hx Obtained From: Patient Onset/Duration: Lasting Weeks Skin Exposure Onset/Duration: Weeks Ago Onset Severity: Moderate Current Severity: Moderate Location: Diffuse Character: Pruritus Aggravating Factor(s): Touch Alleviating Factor(s): OTC Meds Associated Signs & Symptoms: Positive: Negative - Allergy/Home Medications Allergies/Adverse Reactions: Allergies Allergy/AdvReac Type Severity Reaction Status Date / Time Bupropion [From Wellbutrin] Allergy Severe Anaphylatic Verified 03/27/17 17:28 Shock Clindamycin Allergy Anaphylatic Verified 03/27/17 17:28 Shock Diphenhydramine Allergy Difficulty Verified 03/27/17 17:28 [From Benadryl] Breathing Review of Systems Constitutional: Negative Skin: Rash Eyes: Negative ENT: Negative Respiratory: Negative Cardiovascular: Negative Gastrointestinal: Negative Genitourinary: Negative Neurovascular: Negative Neurological: Negative Is Patient Immunocompromised?: No All Other Systems Reviewed And Are Negative: Yes PMH/Surg Hx/FS Hx/Imm Hx Previously Healthy: Yes Psychological History: Bipolar Disorder - Surgical History Surgical History: Yes Surgery Procedure, Year, and Place: T&A age 17 - Family History Known Family History: Positive: Unknown - patient does not know his family history, he is intellectualy impaired, Respiratory Disease Negative: Other - NO JOINT LAXITY - Social History Alcohol Use: Occasionally Substance Use Type: None Smoking Status (MU): Never Smoked Tobacco Have You Smoked in the Last Year: No Household Exposure Type: Cigarettes - Immunization History Most Recent Influenza Vaccination: 2017 Most Recent Tetanus Shot: 10/22/16 Physical Exam Triage Information Reviewed: Yes Appearance: Well-Appearing Vital Signs: Initial Vital Signs Temp 97.8 F 03/27/17 17:30 Pulse 77 03/27/17 17:30 Resp 16 03/27/17 17:30 BP 144/77 03/27/17 17:30 Pulse Ox 100 03/27/17 17:30 Vital Signs Reviewed: Yes Eye Exam: Normal ENT Exam: Normal Neck: Positive: Supple Respiratory Exam: Normal Cardiovascular Exam: Normal Abdominal Exam: Normal Skin Exam: Other - rash all over body some red raised no open areas or drainage present Skin: Positive: rashes Course/Dx - Course Course Of Treatment: nurse gave solumedrol IM x 1 dose now - will wait 20 minutes - tolerated well. pt to talk with mom re checking cats for fleas if rash continues. start dose pack tomorrow am - discussed use and directions on pkg - discussed common side effects with understanding. f/u pcp 1 week if symptoms not resolving - Diagnoses Provider Diagnoses: rash/tick bites Discharge - Discharge Plan Condition: Good Disposition: HOME Prescriptions: Methylprednisolone [Medrol Dosepak 4 MG*] 4 mg PO .SEE HERIBERTO INSTRUCTION 5 Days # 20 tab Patient Education Materials: Insect Bite or Sting (ED), Dermatitis (ED) Referrals: Мария Harmon MD [Primary Care Provider] - 1 Week
== END 2017-03-27 18:18 | disposition home or self-care (01) ==
LOC: UCCORT 17:24
DX: T14.8XXA Other injury of unspecified body region, initial encounter (principal); R21 Rash and other nonspecific skin eruption; W57.XXXA Bitten or stung by nonvenomous insect and other nonvenomous arthropods, initial encounter; Y93.9 Activity, unspecified; Y92.9 Unspecified place or not applicable; Z88.1 Allergy status to other antibiotic agents; Z88.8 Allergy status to other drugs, medicaments and biological substances; F31.9 Bipolar disorder, unspecified; Z77.22 Contact with and (suspected) exposure to environmental tobacco smoke (acute) (chronic)
CPT/HCPCS: 96372; 99212; G0463; J2930

== ENCOUNTER 2017-04-02 11:57 | Emergency (ER) | payer OTHER ==
--- OUTSIDE RECORDS SUMMARY | 2017-04-02 12:06 | XMS REPORT ---
:1990 External Reference #:[id number] Author Organization [employer] Address [address] [place] [address] Phone [phone] Care Team Providers Name Role Phone Karla Harmon MD Care Team Information Dag Sprayer Unavailable Karla Harmon MD Primary Care Physician Unavailable Payers Type Date Identification Numbers Payment Provider Subscriber Commercial Policy Number: [id number] [place] Medicare Doug Dawn PayID: [id number] [address] [place] [address] Medicaid Policy Number: [id number] Medicaid Doug Dawn PayID: [id number] [address] [place] [address] Problems Description No Information Family History Date Family Member(s) Problem(s) Comments Father Cancer Social History Type Date Description Comments Cigarette Use Never Smoked Cigarettes ETOH Use Rare Use Of Alcohol Recreational Drug Use Never Used Drugs Allergies, Adverse Reactions, Alerts Date Description Reaction Status Severity Comments 06/06/2015 Risperdal TONGUE SWELLING active 06/06/2015 Penicillin DIFFICULTY BREATHING active 06/06/2015 Clindamycin active 06/06/2015 Montelukast active Medications Medication Date Status Form Strength Qnty SIG Indications Ordering Provider Ziprasidone Active Capsules 80mg Unknown HCL 000 Bupropion HCL Active Tablets 150mg Unknown [address] 500mg 2 by mouth Unknown 000 at at bedtime [place] Active Tablets ER 450mg Unknown Carbonate ER 000 Seroquel Active Tablets 10mg Unknown 000 Vital Signs Date Vital Result Comment 03/17/2017 Weight 160.00 lb Height 68 inches 5'8" BMI (Body Mass Index) 24.3 kg/m2 BP Systolic 113 mmHg BP Diastolic 78 mmHg Heart Rate 73 /min O2 % BldC Oximetry 99 % Body Temperature 99.3 F [place] Arc Score 10 Neck Circumference in inches 15.5 Pain Level 0 06/26/2015 Weight 137.00 lb Height 68 inches 5'8" BMI (Body Mass Index) 20.8 kg/m2 Body Temperature 99.0 F 06/06/2015 Weight 136.00 lb Height 68 inches 5'8" BMI (Body Mass Index) 20.7 kg/m2 BP Systolic 108 mmHg BP Diastolic 66 mmHg Heart Rate 60 /min O2 % BldC Oximetry 96 % Body Temperature 98.6 F Results Description No Information Procedures Date CPT Code Description Status 06/19/2015 13765 Dil. Of Esoph. By Sound Or Bougie Completed 06/19/2015 97293 Esophagoscopy/Diagnostic Completed 06/19/2015 40412 Larynogoscopy,Dir. With Or W/O Trach. Diag. W/Opert. Completed Microscope 06/19/2015 24289 Anesthesia, Neck Organ Surgery Not Otherwise Spec 1Yr Completed Or Older 06/06/2015 33174 Fiberoptic Laryngoscopy,Diag. Completed 01/16/2009 68696 Acoustic Reflex Testing Completed 01/16/2009 51033 Tympanometry Completed 01/16/2009 41606 Audiometry, Comprehensive Completed Encounters Type Date Location Provider CPT E/M Dx Office Visit 06/06/2015 1:15p Main Office Foreign Garcia M.D. 50691 R13.10 J31.0 J34.2 Plan of Care No Information Available
[2017-04-02 12:32] VITALS: BP 135/76
--- NOTE | 2017-04-02 13:55 | UC ---
Skin Complaint HPI - HPI Summary HPI Summary: was here last tuesday with same c/o got better with med per pt but now worse not sure if it is fleas or bedbugs sleeps at moms house and she has cats. very itchy and the worst on his lower arms. - History of Current Complaint Chief Complaint: UCSkin Time Seen by Provider: 04/02/17 13:53 Stated Complaint: SKIN COMPLAINT,BUG BITE Hx Obtained From: Patient Onset/Duration: Lasting Weeks Skin Exposure Onset/Duration: Weeks Ago Onset Severity: Moderate Current Severity: Moderate Character: Pruritus, Redness, Raised Alleviating Factor(s): OTC Meds, Antihistamines, OTC Creams/Salves Associated Signs & Symptoms: Positive: Negative Related History: Insect Bite/Sting - fleas ? - Allergy/Home Medications Allergies/Adverse Reactions: Allergies Allergy/AdvReac Type Severity Reaction Status Date / Time Bupropion [From Wellbutrin] Allergy Severe Anaphylatic Verified 04/02/17 12:32 Shock Clindamycin Allergy Anaphylatic Verified 04/02/17 12:32 Shock Diphenhydramine Allergy Difficulty Verified 04/02/17 12:32 [From Benadryl] Breathing Review of Systems Constitutional: Negative Skin: Rash Eyes: Negative ENT: Negative Respiratory: Negative Cardiovascular: Negative Gastrointestinal: Negative Genitourinary: Negative Is Patient Immunocompromised?: No All Other Systems Reviewed And Are Negative: Yes PMH/Surg Hx/FS Hx/Imm Hx Previously Healthy: Yes Neurological History: Seizures, Other - CP - Surgical History Surgical History: Yes Surgery Procedure, Year, and Place: T&A age 17 - Family History Known Family History: Positive: Unknown - patient does not know his family history, he is intellectualy impaired, Respiratory Disease Negative: Other - NO JOINT LAXITY - Social History Alcohol Use: Occasionally Substance Use Type: None Smoking Status (MU): Never Smoked Tobacco Have You Smoked in the Last Year: No Household Exposure Type: Cigarettes - Immunization History Most Recent Influenza Vaccination: 2017 Most Recent Tetanus Shot: 10/22/16 Physical Exam Triage Information Reviewed: Yes Appearance: Thin Vital Signs: Initial Vital Signs Temp 98.0 F 04/02/17 12:30 Pulse 72 04/02/17 12:30 Resp 12 04/02/17 12:30 BP 135/76 04/02/17 12:30 Vital Signs Reviewed: Yes Eye Exam: Normal Respiratory Exam: Normal Cardiovascular Exam: Normal Skin: Positive: rashes, Other - bites all over lower extremities, and back Course/Dx - Course Course Of Treatment: solumedrol IM x 1 dose now - will wait 20 min. medrol dose pack ordered - discussed use and common side effects of med. need to take care of bed - get new mattress, if fleas flea bomb the house etc with understanding - symptoms will not go away unless home treated. f/u prn - Differential Diagnoses - Skin Complaint Differential Diagnoses: Contact Dermatitis - Diagnoses Provider Diagnoses: insect bites/contact dermatitis Discharge - Discharge Plan Condition: Good Disposition: HOME Referrals: Мария Harmon MD [Primary Care Provider] - 1 Week
[2017-04-02] MEDS ORDERED: methylPREDNISolone 125 MG* 2 ML VIAL IV ONE (14:02)
[2017-04-02] MEDS ORDERED: methylPREDNISolone 125 MG* 2 ML VIAL IM ONE (14:19)
== END 2017-04-02 14:35 | disposition home or self-care (01) ==
LOC: UCCORT 11:57
DX: S50.862D Insect bite (nonvenomous) of left forearm, subsequent encounter (principal); S50.861D Insect bite (nonvenomous) of right forearm, subsequent encounter; W57.XXXD Bitten or stung by nonvenomous insect and other nonvenomous arthropods, subsequent encounter; L25.9 Unspecified contact dermatitis, unspecified cause; Z72.89 Other problems related to lifestyle; Z77.22 Contact with and (suspected) exposure to environmental tobacco smoke (acute) (chronic)
CPT/HCPCS: 96372; 99212; G0463; J2930

== ENCOUNTER 2017-04-30 16:15 | Emergency (ER) | payer OTHER ==
--- OUTSIDE RECORDS SUMMARY | 2017-04-30 16:25 | XMS REPORT ---
:1990 External Reference #:[id number] Author Organization [employer] Address [address] [place] [address] Phone [phone] Care Team Providers Name Role Phone Karla Harmon MD Care Team Information Principal Research Economist Unavailable Karla Harmon MD Primary Care Physician Unavailable Payers Type Date Identification Numbers Payment Provider Subscriber Commercial Policy Number: [id number] [place] Medicare Doug Dawn PayID: [id number] [address] [place] [address] Medicaid Policy Number: [id number] Medicaid Doug Dawn PayID: [id number] [address] [place] [address] Problems Description No Information Family History Date [...] by mouth Unknown 000 at at bedtime [place] Active Tablets ER 450mg Unknown Carbonate ER 000 Seroquel Active Tablets 10mg Unknown 000 Vital Signs Date Vital Result Comment 04/14/2017 Weight 172.00 lb Height 68 inches 5'8" BMI (Body Mass Index) 26.1 kg/m2 Heart Rate 97 /min O2 % BldC Oximetry 97 % Body Temperature 96.3 F Pain Level 0 03/17/2017 Weight 160.00 lb Height 68 inches 5'8" BMI (Body Mass Index) 24.3 kg/m2 BP Systolic 113 mmHg BP Diastolic 78 mmHg Heart Rate 73 /min O2 % BldC Oximetry 99 % Body Temperature 99.3 F [place] Score 10 Neck Circumference in inches 15.5 [...] Procedures Date CPT Code Description Status 06/19/2015 27428 Dil. Of Esoph. By Sound Or Bougie Completed 06/19/2015 37594 Esophagoscopy/Diagnostic Completed 06/19/2015 36355 Larynogoscopy,Dir. With Or W/O Trach. Diag. W/Opert. Completed Microscope 06/19/2015 97896 Anesthesia, Neck Organ Surgery Not Otherwise Spec 1Yr Completed Or Older 06/06/2015 34099 Fiberoptic Laryngoscopy,Diag. Completed 01/16/2009 30256 Acoustic Reflex Testing Completed 01/16/2009 07316 Tympanometry Completed 01/16/2009 32139 Audiometry, Comprehensive Completed Encounters Type Date Location Provider CPT E/M Dx Office Visit 04/14/2017 3:15p [place] [address] G47.9 Office Visit 03/17/2017 1:30p [place] [address] R06.83 G47.9 Office Visit 06/06/2015 1:15p Main Office Foreign Garcia M.D. 64466 R13.10 J31.0 J34.2 Plan of Care No Information Available
--- OUTSIDE RECORDS SUMMARY | 2017-04-30 16:26 | XMS REPORT ---
:1990 External Reference #:[id number] Author Organization [employer] Address [address] [place] [address] Phone [phone] Care Team Providers Name Role Phone Karla Harmon MD Care Team Information Clam Dredge Boat Captain Unavailable Karla Harmon MD Primary Care Physician Unavailable Payers Type Date Identification Numbers Payment Provider Subscriber Commercial Policy Number: [id number] [place] Medicare Doug Dawn PayID: [id number] [address] [place] [address] Medicaid Policy Number: [id number] Medicaid Doug Dawn PayID: [id number] [address] [place] [address] Problems Description No Information Family History Date [...] by mouth Unknown 000 at at bedtime [place] Active Tablets ER 450mg Unknown Carbonate ER [...] Oximetry 99 % Body Temperature 99.3 F [place] Score 10 Neck Circumference in inches 15.5 [...] Procedures Date CPT Code Description Status 06/19/2015 93002 Dil. Of Esoph. By Sound Or Bougie Completed 06/19/2015 35851 Esophagoscopy/Diagnostic Completed 06/19/2015 87261 Larynogoscopy,Dir. With Or W/O Trach. Diag. W/Opert. Completed Microscope 06/19/2015 45786 Anesthesia, Neck Organ Surgery Not Otherwise Spec 1Yr Completed Or Older 06/06/2015 68171 Fiberoptic Laryngoscopy,Diag. Completed 01/16/2009 30913 Acoustic Reflex Testing Completed 01/16/2009 42729 Tympanometry Completed 01/16/2009 55980 Audiometry, Comprehensive Completed Encounters Type Date Location Provider CPT E/M Dx Office Visit 03/17/2017 1:30p [place] [address] R06.83 G47.9 Office Visit 06/06/2015 1:15p Main Office Foreign Garcia M.D. 07669 R13.10 J31.0 J34.2 Plan of Care No Information Available
[2017-04-30 16:59] VITALS: BP 146/91
[2017-04-30] MEDS ORDERED: Tetan/Diph/Pertus SYR(Tdap)* 0.5 ML SYR(BOOSTRIX) use SYR IM ONE (17:13)
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
== END 2017-04-30 17:56 | disposition home or self-care (01) ==
LOC: UCCORT 16:15
DX: S61.213A Laceration without foreign body of left middle finger without damage to nail, initial encounter (principal); W26.8XXA Contact with other sharp object(s), not elsewhere classified, initial encounter; Y93.89 Activity, other specified; Y92.9 Unspecified place or not applicable; R03.0 Elevated blood-pressure reading, without diagnosis of hypertension; Z23 Encounter for immunization; Z72.89 Other problems related to lifestyle; Z77.22 Contact with and (suspected) exposure to environmental tobacco smoke (acute) (chronic)
CPT/HCPCS: 12001; 90471; 90715; 99211; G0463

== ENCOUNTER 2017-05-12 13:14 | Emergency (ER) | payer OTHER ==
[2017-05-12 14:56] VITALS: BP 134/70
--- NOTE | 2017-05-12 15:08 | UC ---
Skin Complaint HPI - HPI Summary HPI Summary: 26 year old with rash. Has had this before Moms house has bed bugs. He has had before. Recurrence of the bed bugs. Itchy rash on body. - History of Current Complaint Chief Complaint: UCRash Time Seen by Provider: 05/12/17 15:00 Stated Complaint: RASH Hx Obtained From: Patient Onset/Duration: Gradual Onset Timing: Constant Onset Severity: Moderate Current Severity: Moderate Pain Intensity: 0 - Allergy/Home Medications Allergies/Adverse Reactions: Allergies Allergy/AdvReac Type Severity Reaction Status Date / Time MS Bupropion Allergy Severe Anaphylatic Verified 05/12/17 14:56 [From Wellbutrin] Shock MS Clindamycin [Clindamycin] Allergy Anaphylatic Verified 05/12/17 14:56 Shock MS Diphenhydramine Allergy Difficulty Verified 05/12/17 14:56 [From Benadryl] Breathing Review of Systems Skin: Rash Is Patient Immunocompromised?: No All Other Systems Reviewed And Are Negative: Yes PMH/Surg Hx/FS Hx/Imm Hx Previously Healthy: Yes - Surgical History Surgical History: Yes Surgery Procedure, Year, and Place: T&A age 17 - Family History Known Family History: Positive: Unknown - patient does not know his family history, he is intellectualy impaired, Respiratory Disease Negative: Other - NO JOINT LAXITY - Social History Lives: With Family Alcohol Use: Occasionally Substance Use Type: None Smoking Status (MU): Never Smoked Tobacco Have You Smoked in the Last Year: No When Did the Patient Quit Smoking/Using Tobacco: 2006 Household Exposure Type: Cigarettes - Immunization History Most Recent Influenza Vaccination: 2016 Most Recent Tetanus Shot: 10/22/16 Physical Exam Triage Information Reviewed: Yes Appearance: Well-Appearing, No Pain Distress, Well-Nourished Vital Signs: Initial Vital Signs Temp 98.9 F 05/12/17 14:53 Pulse 67 05/12/17 14:53 Resp 12 05/12/17 14:53 BP 134/70 05/12/17 14:53 Pulse Ox 100 05/12/17 14:53 Vital Signs Reviewed: Yes Eye Exam: Normal ENT Exam: Normal Respiratory Exam: Normal Cardiovascular Exam: Normal Skin: Positive: rashes - diffuse maculopapular raised red rash on arms chest and back Course/Dx - Course Course Of Treatment: Per pt the solumedrol helped greatly and requests at this time. Advised to be carefu;l of environement and to haver the insercts removed if possible - Diagnoses Provider Diagnoses: bed bug bites / rash Discharge - Discharge Plan Condition: Good Disposition: HOME Prescriptions: Methylprednisolone [Medrol Dosepak 4 MG*] 0 mg PO .SEE HERIBERTO INSTRUCTION #1 tab Patient Education Materials: Bed Bugs (ED) Referrals: Karla Harmon MD [Primary Care Provider] - 4 Days Additional Instructions: Please ensure that you have the house treated to prevent this from recurring again in the future.
[2017-05-12] MEDS ORDERED: methylPREDNISolone 125 MG* 2 ML VIAL IM ONE (15:11)
== END 2017-05-12 16:00 | disposition home or self-care (01) ==
LOC: UCCORT 13:14
DX: T14.8XXA Other injury of unspecified body region, initial encounter (principal); W57.XXXA Bitten or stung by nonvenomous insect and other nonvenomous arthropods, initial encounter; Y92.9 Unspecified place or not applicable; R21 Rash and other nonspecific skin eruption
CPT/HCPCS: 96372; 99212; G0463; J2930

== ENCOUNTER 2017-08-07 10:24 | Emergency (ER) | payer OTHER ==
[2017-08-07 11:47] VITALS: BP 128/70
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
== END 2017-08-07 12:31 | disposition home or self-care (01) ==
LOC: UCCORT 10:24
DX: M79.644 Pain in right finger(s) (principal); V19.9XXA Pedal cyclist (driver) (passenger) injured in unspecified traffic accident, initial encounter; Y92.9 Unspecified place or not applicable; Z88.8 Allergy status to other drugs, medicaments and biological substances
CPT/HCPCS: 99212; G0463

== ENCOUNTER 2017-09-16 15:06 | Emergency (ER) | payer MEDICARE, MEDICAID ==
--- OUTSIDE RECORDS SUMMARY | 2017-09-16 15:22 | XMS REPORT ---
:1990 External Reference #:[id number] Author Organization [facility] Address [address], [address] [place] [address] Phone [phone] Care Team Providers Name Role Phone Karla Harmon MD Care Team Information Plate Grainer Unavailable Karla Harmon MD Primary Care Physician Unavailable Payers Type Date Identification Numbers Payment Provider Subscriber Commercial Policy Number: [id number] [employer] Doug Dawn PayID: [id number] [address] [place] [address] Medicaid Policy Number: [id number] Medicaid Doug Dawn Group Name: 1 1 [address] PayID: [id number] [place] [address] Commercial Expires: 2015 Policy Number: [id number] [employer] Doug Dawn PayID: [id number] [address] [place] [address] Problems Date Description Provider Status Onset: 08/27/2013 Cerebral palsy Tana Shultz M.D. Active Onset: 08/27/2013 Bipolar disorder Tana Shultz M.D. Active Onset: 08/27/2013 Mild mental handicap Tana Shultz M.D. 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 Onset: 06/25/2015 Dysphagia Karla Harmon MD Active Onset: 07/10/2015 Contusion of finger Karla Harmon MD Active Onset: 09/07/2016 Epilepsy Marlen Cox, [employer], APPLICATION ARCHITECT, Active Ibclc Onset: 10/28/2016 Mental retardation Karla Harmon MD Active Onset: 10/28/2016 Hypothyroidism Karla Harmon MD Active Onset: 10/28/2016 Hyperlipidemia screening Karla Harmon MD Active Onset: 01/27/2017 Strain of muscle, fascia and Karla Harmon MD Active tendon at neck level, subs Onset: 11/11/2016 Otitis media Karla Harmon MD Active Family History Date Family Member(s) Problem(s) Comments Father Alcoholism Father Cancer Mother developmental delay Siblings 2 First Brother dev. delay First Sister dev. delay Social History Type Date Description Comments Lives With Alone Occupation Currently Working [employer], sheltered job ETOH Use Consumes 1 beer per day Smoking Patient has never smoked Daily Caffeine Consumes on average 1 pot of regular coffee per day Svp Group Director Name Mother Svp Group Director Name prev., was adopted at 6 yrs and raised by adopted mo. who accompanies Allergies, Adverse Reactions, Alerts Date Description Reaction Status Severity Comments 11/28/2012 Risperidone active 06/25/2015 Montelukast active 01/27/2017 Benadryl active 01/27/2017 Clindamycin active 01/27/2017 Wellbutrin active 04/17/2012 NKDA inactive Medications Medication Date Status Form Strength Qnty SIG Indications Ordering Provider [place] 09/07 Active Tablets 450mg 1 Cap PO Karla Carbonate ER /2018 ER bid Arc MD Faustino Ibuprofen 01/27 Active Tablets 600mg take one tablet by MD Faustino mouth 3X/Day with food or snack as needed for pain Cyclobenzaprine 01/27 Active Tablets 10mg 60tab 1 by s mouth MD Faustino three times a day as needed muscle spasms ER Doc Ondansetron 11/22 Active Tablets 4mg 30tab 1 by Elmer Dispers s mouth JOSEPH Potrillo every 4 hour as needed Levothyroxine 10/03 Active Tablets 25mcg 30tab Take One s Tablet By MD Faustino Mouth Every Day Loradamed 09/10 Active Tablets 10mg 90tab one a day giovanny Harmon MD Depakote 11/23 Active Tablets 500mg 90tab one tab DR baltazar by renae Harmon MD at Bedtime Loxapine 11/23 Active Capsules 10mg 30cap take one Succinate s capsule MD Faustino by mouth at bedtime Proair HFA 02/24 Active Aerosol 108(90Bas 8.500 inhale J20.9 e) gm two puffs MD Faustino mcg/Act by mouth every 4 hours as needed Vitamin D3 Super Active Capsules 2000Unit 90cap 1 by Karla Strength / s mouth MD Faustino every day Divalproex Active Tablets 250mg 90tab 3 tabs at Sodium ER /0000 ER 24HR s bedtime MD Faustino Neomycin/Polymyx 11/22 Hx Solution [id number] 10ml 4 drops Elmer in/Hydrocortison /2016 -1 to JOSEPH Portillo e (Otic) - bilateral 11/27 ear canal four times a day for 5 days Amoxicillin 11/11 Hx Tablets 875mg 20tab 1 by H66.92 s mouth MD Faustino - twice a [place] 11/23 Hx Capsules 600mg 180ca 1 by Carbonate ps mouth MD Faustino - twice a Cephalexin 07/09 Hx Capsules 500mg Unknown /2015 - 11/23 Divalproex 06/24 Hx Caps 125mg 240ca 4 caps in Sodium Sprinkle ps am mixed MD Faustino - with ice 11/23 cream, 4 caps at bedtime in ice cream Permethrin 06/24 Hx Cream 5% 60gm apply B86 before MD Faustino - bed; 07/09 shower off in am; repeat treatment in 7 days Out Of Work 06/24 Hx seen i the MD Faustino - office 07/09 illness, may return to work on tuesday06/27/15. Singulair 06/03 Hx Chewtabs 5mg 60uni 2 tablets J45.30 ts by mouth JOSEPH Portillo - every day 06/05 Betamethasone 05/27 Hx Ointment 0.1% 15gm apply to R21 rash on MD Faustino - arm twice 09/07 a Wellbutrin XL 01/25 Hx Tablets 150mg 30tab Take One Kian Munoz ER 24HR s Tablet By MD Chaka - Mouth 10/30 Every /2015 Dextromethorphan 03/14 Hx Syrup 10-100mg/ 120ml 1 R05 Karla -Guaifenesin /2014 5ML linda Harmon MD - by mouth 09/07 every hours as needed Benzonatate 02/24 Hx Capsules 200mg 45cap one R05 Jenniferleigh s tablet by JOSEPH Portillo - mouth 03/14 every hours as needed cough Levocetirizine 06/20 Hx Tablets 5mg 30tab 1 by Carrington Dihydrochloride /2014 s mouth MD Tana - every day 02/24 Clotrimazole/Bet 01/25 Hx Cream 45uni thin Carrington amethasone /2013 ts layer to MD Tana Dipropionate - rash 05/27 twice a /2015 day Wellbutrin XL 08/27 Hx Tablets 150mg 30tab Take One Carrington ER 24HR s Tablet By MD Tana - Mouth 05/05 Meloxicam 04/18 Hx Tablets 15mg 30tab take 1 Daron Hutson, s tablet po MD - q day. 02/24 Depakote ER Hx Tablets 500mg 60tab 2 by Carrington, /0000 ER 24HR s mouth MD Tana - every day 06/24 Divalproex Hx Tablets 250mg 30tab 1 by Carrington Sodium ER /0000 ER 24HR s mouth MD Tana - every day 02/24 Ziprasidone HCL Hx Capsules 60mg 2 by Carrington, /0000 mouth MD Tana - every at 02/24 night [place] Hx Capsules 150mg 1 by Ezekiel, Carbonate /0000 mouth Elena, - every day RPAC 02/24 Geodon Hx Capsules 80mg 90cap 1 by Karla /0000 s mouth MD Faustino - every at 10/30 bedtime [place] Hx Tablets 450mg 1 by Karla Carbonate ER /0000 ER mouth MD Faustino - every day 11/23 Penicillin V Hx Tablets 500mg 1 PO tid Amy Easley, Potassium /0000 MD - 06/24 Ibuprofen 00 Hx Tablets 800mg Unknown /0000 - 01/27 Amoxicillin 00 Hx Capsules 500mg 1 by Unknown /0000 mouth - three 09/10 times day x 7 days Immunizations CPT Code Status Date Vaccine Lot # [id number] Given 05/05/2015 Influenza Vaccine (Fluzone) Age 3 And Older [id number] U-Td Given 06/13/2014 Td(Adult),Unspecified Vital Signs Date Vital Result Comment 09/07/2017 BP Systolic 132 mmHg BP Diastolic 75 mmHg Body Temperature 98.2 F Heart Rate 63 /min Respiratory Rate 18 /min Height 68 inches 5'8" Weight 160.00 lb BMI (Body Mass Index) 24.3 kg/m2 BSA (Body Surface Area) 1.86 m2 [place] body weight in kilograms 70 01/27/2017 BP Systolic Sitting Resting Right Arm 127 mmHg BP Diastolic Sitting Resting Right Arm 72 mmHg Heart Rate 80 /min Height 68 inches 5'8" Weight 150.00 lb BMI (Body Mass Index) 22.8 kg/m2 BSA (Body Surface Area) 1.81 m2 [place] body weight in kilograms 70 11/22/2016 BP Systolic 118 mmHg BP Diastolic 80 mmHg Body Temperature 98.9 F Height 68 inches 5'8" Weight 148.00 lb BMI (Body Mass Index) 22.5 kg/m2 BSA (Body Surface Area) 1.80 m2 [place] body weight in kilograms 70 11/11/2016 BP Systolic Sitting Left Arm 116 mmHg BP Diastolic Sitting Left Arm 68 mmHg Body Temperature 98.8 F Heart Rate 88 /min Respiratory Rate 18 /min Height 68 inches 5'8" Weight 148.00 lb BMI (Body Mass Index) 22.5 kg/m2 BSA (Body Surface Area) 1.80 m2 [place] body weight in kilograms 70 10/28/2016 BP Systolic 132 mmHg BP Diastolic 80 mmHg Heart Rate 74 /min Height 68 inches 5'8" Weight 151.00 lb BMI (Body Mass Index) 23.0 kg/m2 BSA (Body Surface Area) 1.81 m2 [place] body weight in kilograms 70 09/10/2016 BP Systolic Sitting Left Arm 118 mmHg BP Diastolic Sitting Left Arm 72 mmHg Heart Rate 76 /min Respiratory Rate 18 /min Height 68 inches 5'8" Weight 149.00 lb BMI (Body Mass Index) 22.7 kg/m2 BSA (Body Surface Area) 1.80 m2 [place] body weight in kilograms 70 09/07/2016 BP Systolic 132 mmHg BP Diastolic 78 mmHg Body Temperature 99.0 F Heart Rate 80 /min Weight 157.00 lb O2 % BldC Oximetry 98 % 07/10/2015 BP Systolic 122 mmHg BP Diastolic 72 mmHg Heart Rate 84 /min Respiratory Rate 19 /min Weight 145.12 lb 06/25/2015 BP Systolic 122 mmHg BP Diastolic 65 mmHg Heart Rate 78 /min Respiratory Rate 19 /min Weight 137.50 lb 06/03/2015 BP Systolic 116 mmHg BP Diastolic 68 mmHg Body Temperature 99.0 F Height 68 inches 5'8" Weight 139.00 lb BMI (Body Mass Index) 21.1 kg/m2 BSA (Body Surface Area) 1.75 m2 05/27/2015 BP Systolic Sitting Left Arm 132 mmHg BP Diastolic Sitting Left Arm 74 mmHg Heart Rate 61 /min Respiratory Rate 19 /min Weight 144.00 lb 05/05/2015 BP Systolic 129 mmHg BP Diastolic 84 mmHg BP Systolic Sitting Left Arm 118 mmHg HR 88 BP Diastolic Sitting Left Arm 75 mmHg HR 88 Body Temperature 98.6 F Heart Rate 102 /min Respiratory Rate 19 /min Height 68 inches 5'8" Weight 146.12 lb BMI (Body Mass Index) 22.2 kg/m2 BSA (Body Surface Area) 1.79 m2 03/14/2015 BP Systolic 114 mmHg BP Diastolic 70 mmHg Body Temperature 98.8 F Height 68 inches 5'8" Weight 142.50 lb BMI (Body Mass Index) 21.7 kg/m2 BSA (Body Surface Area) 1.77 m2 02/24/2015 BP Systolic 124 mmHg BP Diastolic 76 mmHg Body Temperature 99.4 F Height 68 inches 5'8" Weight 142.38 lb BMI (Body Mass Index) 21.6 kg/m2 BSA (Body Surface Area) 1.77 m2 06/27/2014 BP Systolic 116 mmHg BP Diastolic 72 mmHg Heart Rate 80 /min Respiratory Rate 18 /min Height 68 inches 5'8" Weight 140.00 lb 06/20/2014 BP Systolic 118 mmHg BP Diastolic 72 mmHg Body Temperature 98.7 F Weight 149.00 lb 01/25/2014 BP Systolic 102 mmHg BP Diastolic 66 mmHg Height 68 inches 5'8" Weight 153.00 lb 08/27/2013 BP Systolic 132 mmHg BP Diastolic 70 mmHg Heart Rate 81 /min Height 68 inches 5'8" Weight 149.00 lb 11/28/2012 BP Systolic 102 mmHg BP Diastolic 70 mmHg Heart Rate 78 /min Respiratory Rate 18 /min Height 68 inches 5'8" Weight 141.00 lb 04/17/2012 Height 67 inches 5'7" Weight 137.00 lb Results Test Date Test Result H/L Range Note CBS W/Automated Diff 08/31/2017 White Blood Count 6.9 K/uL 3.4-10.5 1 Red Blood Count 4.68 M/uL 4.20-5.80 1 Hemoglobin 14.3 gm/dL 12.8-17.0 1 Hematocrit 43.1 % 38.0-48.0 1 Mean Cell Volume 92.1 fl 80.0-96.0 1 Mean Corpuscular HGB 30.6 pg 27.0-33.0 1 Mean Corpuscular HGB Conc 33.2 g/dL 31.7-36.0 1 Platelet Count 245 K/uL 155-360 1 Red Cell Distri Width SD 41.5 fl 36-51 1 Red Cell Distri Width %CV 12.6 % 11.6-15.8 1 Mean Platelet Volume 11.0 fL High 6.6-10.6 1 Neut% 58.5 % 33.0-73.0 1 Lymph % 29.4 % 20.0-42.0 1 [place] % 10.7 % High 0.0-10.0 1 Eo% 1.0 % 0.0-6.6 1 Bas% 0.4 % 0.0-1.1 1 Neut# 4.04 K/uL 1.8-7.0 1 Lymph # 2.03 K/uL 1.0-4.0 1 [place] # 0.74 K/uL 0.0-0.8 1 Eos # 0.07 K/uL 0.0-0.5 1 Baso # 0.03 K/uL 0.0-0.1 1 Laboratory test finding 08/31/2017 Salicylate < 1.7 mg/dL Low 2.8-20.0 1, 2 [place] 0.59 mmol/L Low 0.60-1.20 1 Ua RFX Micro & Culture II 08/31/2017 Urine Color YELLOW Yellow 1 Urine Clarity CLEAR Clear 1 Urine Glucose - Dipstick NEGATIVE mg/dL Negative 1 Urine Bilirubin - Dipstick NEGATIVE Negative 1 Urine Ketone TRACE mg/dL High Negative 1 Urine Specific [place] 1.020 1.010-1.030 1 Urine Blood NEGATIVE Negative 1 Urine PH 7.0 6.5-7.5 1 Urine Protein - Dipstick NEGATIVE mg/dL Negative 1 Urine Urobilinogen - Dipstick 4.0 E.U./dL High 0.2-1.0 1 Urine Nitrite - Dipstick NEGATIVE Negative 1 Urine Leuk Esterase NEGATIVE Negative 1 Source: URINE, CLEAN CAT <SEE NOTE> 1, 3 Drugs Of Abuse-Urine Screen 7 08/31/2017 Amphetamines (Urine) Negative 1 Barbiturates (Urine) Negative 1 Benzodiazepines (Urine) Negative 1 Cannabinoids (Urine) Negative 1 Cocaine Metabolite (Urine) Negative 1 Methadone (Urine) Negative 1 Opiates (Urine) Negative 1 Urine Cutoffs * 1, 4 Ua RFX Micro & Culture II 08/29/2017 Urine Color YELLOW Yellow 5 Urine Clarity CLEAR Clear 5 Urine Glucose - Dipstick NEGATIVE mg/dL Negative 5 Urine Bilirubin - Dipstick NEGATIVE Negative 5 Urine Ketone NEGATIVE mg/dL Negative 5 Urine Specific [place] 1.010 1.010-1.030 5 Urine Blood NEGATIVE Negative 5 Urine PH 7.0 6.5-7.5 5 Urine Protein - Dipstick NEGATIVE mg/dL Negative 5 Urine Urobilinogen - Dipstick 1.0 E.U./dL 0.2-1.0 5 Urine Nitrite - Dipstick NEGATIVE Negative 5 Urine Leuk Esterase NEGATIVE Negative 5 Source: URINE, CLEAN CAT <SEE NOTE> 5, 6 Drugs Of Abuse-Urine Screen 7 08/29/2017 Amphetamines (Urine) Negative 5 Barbiturates (Urine) Negative 5 Benzodiazepines (Urine) Negative 5 Cannabinoids (Urine) Negative 5 Cocaine Metabolite (Urine) Negative 5 Methadone (Urine) Negative 5 Opiates (Urine) Negative 5 Urine Cutoffs * 5, 7 CBS W/Automated Diff 08/29/2017 White Blood Count 7.2 K/uL 3.4-10.5 5 Red Blood Count 4.92 M/uL 4.20-5.80 5 Hemoglobin 15.0 gm/dL 12.8-17.0 5 Hematocrit 45.6 % 38.0-48.0 5 Mean Cell Volume 92.7 fl 80.0-96.0 5 Mean Corpuscular HGB 30.5 pg 27.0-33.0 5 Mean Corpuscular HGB Conc 32.9 g/dL 31.7-36.0 5 Platelet Count 240 K/uL 155-360 5 Red Cell Distri Width SD 43.0 fl 36-51 5 Red Cell Distri Width %CV 13.0 % 11.6-15.8 5 Mean Platelet Volume 11.2 fL High 6.6-10.6 5 Neut% 52.6 % 33.0-73.0 5 Lymph % 36.4 % 20.0-42.0 5 [place] % 8.8 % 0.0-10.0 5 Eo% 1.8 % 0.0-6.6 5 Bas% 0.4 % 0.0-1.1 5 Neut# 3.79 K/uL 1.8-7.0 5 Lymph # 2.62 K/uL 1.0-4.0 5 [place] # 0.63 K/uL 0.0-0.8 5 Eos # 0.13 K/uL 0.0-0.5 5 Baso # 0.03 K/uL 0.0-0.1 5 Laboratory test finding 08/29/2017 CK 102 U/L 39-308 5 [place] 0.49 mmol/L Low 0.60-1.20 5 Laboratory test finding 08/06/2017 Valproic Acid 82.1 ug/mL 50.0-100.0 8 Ua RFX Micro & Culture II 07/14/2017 Urine Color YELLOW Yellow 9 Urine Clarity CLEAR Clear 9 Urine Glucose - Dipstick NEGATIVE mg/dL Negative 9 Urine Bilirubin - Dipstick NEGATIVE Negative 9 Urine Ketone NEGATIVE mg/dL Negative 9 Urine Specific [place] <=1.005 Low 1.010-1.030 9 Urine Blood NEGATIVE Negative 9 Urine PH 6.5 6.5-7.5 9 Urine Protein - Dipstick NEGATIVE mg/dL Negative 9 Urine Urobilinogen - Dipstick 0.2 E.U./dL 0.2-1.0 9 Urine Nitrite - Dipstick NEGATIVE Negative 9 Urine Leuk Esterase NEGATIVE Negative 9 Source: URINE, CLEAN CAT <SEE NOTE> 9, 10 Drugs Of Abuse-Urine Screen 7 07/14/2017 Amphetamines (Urine) Negative 9 Barbiturates (Urine) Negative 9 Benzodiazepines (Urine) Negative 9 Cannabinoids (Urine) Negative 9 Cocaine Metabolite (Urine) Negative 9 Methadone (Urine) Negative 9 Opiates (Urine) Negative 9 Urine Cutoffs * 9, 11 CBS W/Automated Diff 07/14/2017 White Blood Count 7.8 K/uL 3.4-10.5 9 Red Blood Count 4.43 M/uL 4.20-5.80 9 Hemoglobin 13.5 gm/dL 12.8-17.0 9 Hematocrit 40.7 % 38.0-48.0 9 Mean Cell Volume 91.9 fl 80.0-96.0 9 Mean Corpuscular HGB 30.5 pg 27.0-33.0 9 Mean Corpuscular HGB Conc 33.2 g/dL 31.7-36.0 9 Platelet Count 251 K/uL 155-360 9 Red Cell Distri Width SD 44.6 fl 36-51 9 Red Cell Distri Width %CV 13.4 % 11.6-15.8 9 Mean Platelet Volume 11.1 fL High 6.6-10.6 9 Neut% 50.5 % 33.0-73.0 9 Lymph % 37.7 % 20.0-42.0 9 [place] % 10.0 % 0.0-10.0 9 Eo% 1.5 % 0.0-6.6 9 Bas% 0.3 % 0.0-1.1 9 Neut# 3.93 K/uL 1.8-7.0 9 Lymph # 2.93 K/uL 1.0-4.0 9 [place] # 0.78 K/uL 0.0-0.8 9 Eos # 0.12 K/uL 0.0-0.5 9 Baso # 0.02 K/uL 0.0-0.1 9 Laboratory test 07/14/2017 [place] < 0.20 mmol/L Low 0.60-1.20 9 finding CBS W/Automated Diff 06/25/2017 White Blood Count 9.5 K/uL 3.4-10.5 12 Red Blood Count 4.88 M/uL 4.20-5.80 12 Hemoglobin 14.6 gm/dL 12.8-17.0 12 Hematocrit 44.1 % 38.0-48.0 12 Mean Cell Volume 90.4 fl 80.0-96.0 12 Mean Corpuscular HGB 29.9 pg 27.0-33.0 12 Mean Corpuscular HGB Conc 33.1 g/dL 31.7-36.0 12 Platelet Count 259 K/uL 155-360 12 Red Cell Distri Width SD 43.2 fl 36-51 12 Red Cell Distri Width %CV 13.3 % 11.6-15.8 12 Mean Platelet Volume 10.8 fL High 6.6-10.6 12 Neut% 64.8 % 33.0-73.0 12 Lymph % 26.6 % 20.0-42.0 12 [place] % 7.5 % 0.0-10.0 12 Eo% 0.7 % 0.0-6.6 12 Bas% 0.4 % 0.0-1.1 12 Neut# 6.14 K/uL 1.8-7.0 12 Lymph # 2.52 K/uL 1.0-4.0 12 [place] # 0.71 K/uL 0.0-0.8 12 Eos # 0.07 K/uL 0.0-0.5 12 Baso # 0.04 K/uL 0.0-0.1 12 Ua RFX Micro & Culture II 06/25/2017 Urine Color YELLOW Yellow 12 Urine Clarity CLEAR Clear 12 Urine Glucose - Dipstick NEGATIVE mg/dL Negative 12 Urine Bilirubin - Dipstick NEGATIVE Negative 12 Urine Ketone NEGATIVE mg/dL Negative 12 Urine Specific [place] 1.025 1.010-1.030 12 Urine Blood NEGATIVE Negative 12 Urine PH 6.0 Low 6.5-7.5 12 Urine Protein - Dipstick NEGATIVE mg/dL Negative 12 Urine Urobilinogen - Dipstick 0.2 E.U./dL 0.2-1.0 12 Urine Nitrite - Dipstick NEGATIVE Negative 12 Urine Leuk Esterase NEGATIVE Negative 12 Source: URINE, CLEAN CAT <SEE 12, 13 NOTE> Laboratory test 06/25/2017 Salicylate < 1.7 mg/dL Low 2.8-20.0 12, 14 finding Drugs Of 06/25/2017 Amphetamines (Urine) Negative 12 Abuse-Urine Screen 7 Barbiturates (Urine) POSITIVE 12 Benzodiazepines (Urine) Negative 12 Cannabinoids (Urine) Negative 12 Cocaine Metabolite (Urine) Negative 12 Methadone (Urine) Negative 12 Opiates (Urine) Negative 12 Urine Cutoffs * 12, 15 Laboratory test finding 06/25/2017 Valproic Acid 44.9 ug/mL Low 50.0- 100.0 12 [place] 0.37 mmol/L Low 0.60-1.20 12 Laboratory test 06/13/2017 Throat Strep NO BETA STREPTOC 16, 17 finding Screen <SEE NOTE> CBS W/Automated Diff 02/18/2017 White Blood Count 7.6 K/uL 3.4-10.5 18 Red Blood Count 4.79 M/uL 4.20-5.80 18 Hemoglobin 14.0 gm/dL 12.8-17.0 18 Hematocrit 42.1 % 38.0-48.0 18 Mean Cell Volume 87.9 fl 80.0-96.0 18 Mean Corpuscular HGB 29.2 pg 27.0-33.0 18 Mean Corpuscular HGB Conc 33.3 g/dL 31.7-36.0 18 Platelet Count 219 K/uL 150-400 18 Red Cell Distri Width SD 44.0 fl 36-51 18 Red Cell Distri Width %CV 14.1 % 11.6-15.8 18 Mean Platelet Volume 11.7 fL High 6.6-10.6 18 Neut% 51.6 % 33.0-73.0 18 Lymph % 32.9 % 20.0-42.0 18 [place] % 12.4 % High 0.0-10.0 18 Eo% 2.4 % 0.0-6.6 18 Bas% 0.7 % 0.0-1.1 18 Neut# 3.92 K/uL 1.8-7.0 18 Lymph # 2.50 K/uL 1.0-4.0 18 [place] # 0.94 K/uL High 0.0-0.8 18 Eos # 0.18 K/uL 0.0-0.5 18 Baso # 0.05 K/uL 0.0-0.1 18 Comprehensive Metabolic Panel 02/18/2017 Glucose 101 mg/dL 74-106 18 BUN 8 mg/dL 7-18 18 Creatinine 0.7 mg/dL 0.6-1.3 18 Glom Filtration Rate, Estimate >60 mL/min >60 18 If >60 mL/min >60 18, 19 BUN/Creat 11.4 ratio 18 Sodium 141 mmol/L 136-145 18 Potassium 4.3 mmol/L 3.5-5.1 18 Chloride 107 mmol/L 98-107 18 Carbon Dioxide 28 mmol/L 21-32 18 Anion Gap 6 mEq/L Low 8-16 18 Calcium 8.6 mg/dL 8.5-10.1 18 Total Protein 7.0 g/dL 6.4-8.2 18 Albumin 3.5 g/dL 3.4-5.0 18 Globulin 3.5 g/dL 1.9-4.3 18 Alb/Glob 1.0 ratio 18 Bilirubin,Total 0.2 mg/dL 0.2-1.0 18 Sgot/Ast 13 U/L Low 15-37 18, 20 SGPT/Alt 22 U/L 12-78 18 Alkaline Phosphatase 82 U/L 45-117 18 Laboratory test finding 02/18/2017 CK 76 U/L 39-308 18 Troponin-I < 0.015 ng/mL 18, 21 Valproic Acid 34.2 ug/mL Low 50.0-100.0 18 Laboratory test 11/30/2016 Thyroid Stim Hormone 1.38 uIU/mL 0.30-4.20 22 finding Laboratory test 10/28/2016 Thyroid Stim Hormone 2.15 uIU/mL 0.30-4.20 23 finding LDL Cholesterol 10/28/2016 Cholesterol 149 mg/dL <200 23, 24 Profile Triglycerides 72 mg/dL <150 23, 25 HDL Cholesterol 36 mg/dL Low >40 23, 26 LDL-Cholesterol 99 mg/dL < 100 23, 27 Rapid Influenza A & B 05/29/2016 Influenza A Molecular NEGATIVE Negative 28 Molecular Influenza B Molecular NEGATIVE Negative Laboratory test finding 10/31/2015 Ammonia 55 umol/L High 11-32 Valproic Acid 59.2 ug/mL 50.0-100.0 Laboratory test finding 10/31/2015 [place] 0.31 mmol/L Low 0.60-1.20 Drugs Of Abuse-Urine 10/27/2015 Amphetamines (Urine) Negative Screen 7 Barbiturates (Urine) Negative Benzodiazepines (Urine) Negative Cannabinoids (Urine) Negative Cocaine Metabolite (Urine) Negative Methadone (Urine) Negative Opiates (Urine) Negative Urine Cutoffs * 29 Urine Screen 10/27/2015 Urine Color YELLOW Yellow Urine Clarity CLEAR Clear Urine Glucose - Dipstick NEGATIVE mg/dL Negative Urine Bilirubin - Dipstick NEGATIVE Negative Urine Ketone NEGATIVE mg/dL Negative Urine Specific [place] >=1.030 1.010-1.030 Urine Blood NEGATIVE Negative Urine PH 5.5 Low 6.5-7.5 Urine Protein - Dipstick TRACE mg/dL Negative Urine Urobilinogen - Dipstick 0.2 E.U./dL 0.2-1.0 Urine Nitrite - Dipstick NEGATIVE Negative Urine Leuk Esterase NEGATIVE Negative Laboratory test finding 10/27/2015 Aot Request Test(s) added 30 Laboratory test finding 10/26/2015 Rapid Abdet See Note 31 Hepatitis C Antibody 10/26/2015 Hepatitis C Antibody Nonreactive Nonreactive Signal/Cutoff ratio < 0.02 <0.80 32 Hepatitis B Surface 10/26/2015 HBSAb Interpretation Nonreactive Nonreactive Antibody Hepatitis B Surface Antibody < 3.1 mIU/mL <3.1 33 Comprehensive Metabolic Panel 10/26/2015 Glucose 129 mg/dL High 74-106 BUN 15 mg/dL 7-18 Creatinine 1.0 mg/dL 0.6-1.3 Glom Filtration Rate, Estimate >60 mL/min >60 If >60 mL/min >60 34 BUN/Creat 15.0 ratio Sodium 141 mmol/L 136-145 Potassium 3.9 mmol/L 3.5-5.1 Chloride 107 mmol/L 98-107 Carbon Dioxide 27 mmol/L 21-32 Anion Gap 7 mEq/L Low 8-16 Calcium 8.4 mg/dL Low 8.5-10.1 Total Protein 7.5 g/dL 6.4-8.2 Albumin 4.1 g/dL 3.4-5.0 Globulin 3.4 g/dL 1.9-4.3 Alb/Glob 1.2 ratio Bilirubin,Total 0.6 mg/dL 0.2-1.0 Sgot/Ast 8 U/L Low 15-37 35 SGPT/Alt 17 U/L 12-78 Alkaline Phosphatase 63 U/L 45-117 Laboratory test finding 10/26/2015 Ethyl Alcohol < 3.0 mg/dL CBC W/Automated Diff 10/26/2015 White Blood Count 13.4 K/uL High 3.4-10.5 Red Blood Count 5.14 M/uL 4.20-5.80 Hemoglobin 15.2 gm/dL 12.8-17.0 Hematocrit 45.9 % 38.0-48.0 Mean Cell Volume 89.3 fl 80.0-96.0 Mean Corpuscular HGB 29.6 pg 27.0-33.0 Mean Corpuscular HGB Conc 33.1 g/dL 31.7-36.0 Platelet Count 254 K/uL 150-400 Red Cell Distri Width SD 40.9 fl 36-51 Red Cell Distri Width %CV 12.8 % 11.6-15.8 Mean Platelet Volume 11.1 fL High 6.6-10.6 Neut# 10.53 K/uL High 1.8-7.0 Lymph # 2.18 K/uL 1.8-7.0 [place] # 0.58 K/uL 0.0-0.8 Eos # 0.05 K/uL 0.0-0.5 Baso # 0.03 K/uL Low 0.1-0.2 Laboratory test finding 10/26/2015 Slide Review DIFF ORDERED Differential-WBC Confirm 10/26/2015 Total Cells Counted 100 #CELLS Band% 5 % 0-8 Neutrophils% 67 % 33-73 Lymph% 22 % 17-56 Atypical Lymph% 1 % 0-7 Monocyte% 4 % 0-10 Eosinophil% 1 % 0-5 Platelet Estimate NORMAL Poikilocytosis 0-1+ Anisocytosis 0-1+ Laboratory test 10/26/2015 Hepatitis B Surface Nonreactive 36 finding Antigen Nonreactive LDL Cholesterol 10/26/2015 Cholesterol 125 mg/dL <200 37 Profile Triglycerides 60 mg/dL <150 38 HDL Cholesterol 40 mg/dL >40 39 LDL-Cholesterol 73 mg/dL < 100 40 Laboratory test finding 10/26/2015 [place] 0.32 mmol/L Low 0.60-1.20 Valproic Acid 31.7 ug/mL Low 50.0-100.0 Ziprasidone (Geodon,Zeldox) 3.3 ng/mL . 41 Drugs Of Abuse-Urine Screen 7 09/10/2015 Amphetamines (Urine) Negative Barbiturates (Urine) Negative Benzodiazepines (Urine) Negative Cannabinoids (Urine) Negative Cocaine Metabolite (Urine) Negative Methadone (Urine) Negative Opiates (Urine) Negative Urine Cutoffs * 42 Comprehensive Metabolic Panel 06/02/2015 Glucose 122 mg/dL High 74-106 BUN 19 mg/dL High 7-18 Creatinine 0.9 mg/dL 0.6-1.3 Glom Filtration Rate, Estimate >60 mL/min >60 If >60 mL/min >60 43 BUN/Creat 21.1 ratio Sodium 140 mmol/L 136-145 Potassium 3.6 mmol/L 3.5-5.1 Chloride 107 mmol/L 98-107 Carbon Dioxide 27 mmol/L 21-32 Anion Gap 6 mEq/L Low 8-16 Calcium 8.2 mg/dL Low 8.5-10.1 Total Protein 7.0 g/dL 6.4-8.2 Albumin 3.9 g/dL 3.4-5.0 Globulin 3.1 g/dL 1.9-4.3 Alb/Glob 1.3 ratio Bilirubin,Total 0.6 mg/dL 0.2-1.0 Sgot/Ast 12 U/L Low 15-37 44 SGPT/Alt 31 U/L 12-78 Alkaline Phosphatase 67 U/L 45-117 Laboratory test finding 06/02/2015 Thyroid Stim Hormone 1.56 uIU/mL 0.36- 3.74 Valproic Acid < 3.0 ug/mL Low 50.0-100.0 45 Acetaminophen < 2.0 ug/mL Low 10.0-30.0 46 Salicylate < 1.7 mg/dL Low 2.8-20.0 47 Ethyl Alcohol < 3.0 mg/dL CBC W/Automated Diff 06/02/2015 White Blood Count 14.5 K/uL High 3.4-10.5 Red Blood Count 4.99 M/uL 4.20-5.80 Hemoglobin 14.5 gm/dL 12.8-17.0 Hematocrit 44.1 % 38.0-48.0 Mean Cell Volume 88.4 fl 80.0-96.0 Mean Corpuscular HGB 29.1 pg 27.0-33.0 Mean Corpuscular HGB Conc 32.9 g/dL 31.7-36.0 Platelet Count 309 K/uL 150-400 Red Cell Distri Width SD 40.9 fl 36-51 Red Cell Distri Width %CV 13.0 % 11.6-15.8 Mean Platelet Volume 10.9 fL High 6.6-10.6 Neut# 11.39 K/uL High 1.8-7.0 Lymph # 2.12 K/uL 1.8-7.0 [place] # 0.89 K/uL High 0.0-0.8 Eos # 0.08 K/uL 0.0-0.5 Baso # 0.03 K/uL Low 0.1-0.2 Laboratory test finding 06/02/2015 Slide Review DIFF ORDERED Differential-WBC Confirm 06/02/2015 Total Cells Counted 100 #CELLS Neutrophils% 82 % High 33-73 Lymph% 13 % Low 17-56 Monocyte% 5 % 0-10 Platelet Estimate NORMAL Anisocytosis 0-1+ Laboratory test 06/02/2015 [place] < 0.20 mmol/L Low 0.60-1.20 48 finding Laboratory test 06/02/2015 Valproic Acid See Note 49 finding Drugs Of 06/02/2015 Amphetamines (Urine) Negative Abuse-Urine Screen 7 Barbiturates (Urine) Negative Benzodiazepines (Urine) Negative Cannabinoids (Urine) Negative Cocaine Metabolite (Urine) Negative Methadone (Urine) Negative Opiates (Urine) Negative Urine Cutoffs * 50 Urine Screen 06/02/2015 Urine Color YELLOW Yellow Urine Clarity CLEAR Clear Urine Glucose - Dipstick NEGATIVE mg/dL Negative Urine Bilirubin - Dipstick NEGATIVE Negative Urine Ketone NEGATIVE mg/dL Negative Urine Specific [place] >=1.030 1.010-1.030 Urine Blood TRACE Negative Urine PH 5.5 Low 6.5-7.5 Urine Protein - Dipstick NEGATIVE mg/dL Negative Urine Urobilinogen - Dipstick 0.2 E.U./dL 0.2-1.0 Urine Nitrite - Dipstick NEGATIVE Negative Urine Leuk Esterase NEGATIVE Negative Laboratory test finding 05/05/2015 [place] 0.35 mmol/L Low 0.60-1.20 Comprehensive Metabolic Panel 05/05/2015 Glucose 89 mg/dL 74-106 BUN 14 mg/dL 7-18 Creatinine 0.9 mg/dL 0.6-1.3 Glom Filtration Rate, Estimate >60 mL/min >60 If >60 mL/min >60 51 BUN/Creat 15.5 ratio Sodium 140 mmol/L 136-145 Potassium 3.9 mmol/L 3.5-5.1 Chloride 102 mmol/L 98-107 Carbon Dioxide 31 mmol/L 21-32 Anion Gap 7 mEq/L Low 8-16 Calcium 8.3 mg/dL Low 8.5-10.1 Total Protein 7.5 g/dL 6.4-8.2 Albumin 4.0 g/dL 3.4-5.0 Globulin 3.5 g/dL 1.9-4.3 Alb/Glob 1.1 ratio Bilirubin,Total 0.6 mg/dL 0.2-1.0 Sgot/Ast 14 U/L Low 15-37 52 SGPT/Alt 39 U/L 12-78 Alkaline Phosphatase 67 U/L 45-117 Laboratory test finding 04/08/2015 Throat Culture Complete See Note 53 CBS W/Automated Diff 04/08/2015 White Blood Count 10.3 K/uL 3.4-10.5 Red Blood Count 4.85 M/uL 4.20-5.80 Hemoglobin 14.1 gm/dL 12.8-17.0 Hematocrit 42.7 % 38.0-48.0 Mean Cell Volume 88.0 fl 80.0-96.0 Mean Corpuscular HGB 29.1 pg 27.0-33.0 Mean Corpuscular HGB Conc 33.0 g/dL 31.7-36.0 Platelet Count 267 K/uL 150-400 Red Cell Distri Width SD 41.2 fl 36-51 Red Cell Distri Width %CV 13.0 % 11.6-15.8 Mean Platelet Volume 10.5 fL 6.6-10.6 Neut% 62.3 % 33.0-73.0 Lymph % 28.8 % 17.0-56.0 [place] % 7.7 % 0.0-10.0 Eo% 0.9 % 0.0-5.0 Bas% 0.3 % 0.1-1.0 Neut# 6.39 K/uL 1.8-7.0 Lymph # 2.96 K/uL 1.8-7.0 [place] # 0.79 K/uL 0.0-0.8 Eos # 0.09 K/uL 0.0-0.5 Baso # 0.03 K/uL Low 0.1-0.2 Laboratory test finding 04/08/2015 Magnesium 2.7 mg/dL High 1.8-2.4 Comprehensive Metabolic Panel 04/08/2015 Glucose 107 mg/dL High 74-106 BUN 9 mg/dL 7-18 Creatinine 0.9 mg/dL 0.6-1.3 Glom Filtration Rate, Estimate >60 mL/min >60 If >60 mL/min >60 54 BUN/Creat 10.0 ratio Sodium 140 mmol/L 136-145 Potassium 3.7 mmol/L 3.5-5.1 Chloride 106 mmol/L 98-107 Carbon Dioxide 31 mmol/L 21-32 Anion Gap 3 mEq/L Low 8-16 Calcium 7.8 mg/dL Low 8.5-10.1 Total Protein 7.2 g/dL 6.4-8.2 Albumin 3.9 g/dL 3.4-5.0 Globulin 3.3 g/dL 1.9-4.3 Alb/Glob 1.2 ratio Bilirubin,Total 1.0 mg/dL 0.2-1.0 Sgot/Ast 19 U/L 15-37 SGPT/Alt 42 U/L 12-78 Alkaline Phosphatase 64 U/L 45-117 Urine Screen 04/08/2015 Urine Color YELLOW Yellow Urine Clarity CLEAR Clear Urine Glucose - Dipstick NEGATIVE mg/dL Negative Urine Bilirubin - Dipstick NEGATIVE Negative Urine Ketone NEGATIVE mg/dL Negative Urine Specific [place] 1.025 1.010-1.030 Urine Blood NEGATIVE Negative Urine PH 6.0 Low 6.5-7.5 Urine Protein - Dipstick NEGATIVE mg/dL Negative Urine Urobilinogen - Dipstick 1.0 E.U./dL 0.2-1.0 Urine Nitrite - Dipstick NEGATIVE Negative Urine Leuk Esterase NEGATIVE Negative Comprehensive Metabolic Panel 08/27/2013 Alb/Glob 1.2 ratio Albumin 4.3 g/dL 3.5-5.0 Alkaline Phosphatase 59 U/L 50-136 Anion Gap 8 mEq/L 8-16 BUN 13 mg/dL 5-23 BUN/Creat 18.5 ratio Bilirubin,Total 0.7 mg/dL 0.2-1.2 Calcium 9.4 mg/dL 8.5-10.1 Carbon Dioxide 31 mEq/L High 18-29 Chloride 102 mmol/L 98-107 Creatinine 0.7 mg/dL 0.5-1.4 Globulin 3.6 g/dL 1.9-4.3 Glom Filtration Rate, Estimate >60 mL/min >60 Glucose 78 mg/dL 76-115 If >60 mL/min >60 55 Potassium 4.2 mmol/L 3.5-5.1 SGPT/Alt 28 U/L Low 30-65 Sgot/Ast 13 U/L Low 16-40 Sodium 137 mmol/L 136-145 Total Protein 7.9 g/dL 6.3-8.0 Laboratory test finding 08/27/2013 [place] < 0.20 mmol/L Low 0.60-1.20 1 MENTAL HEALTH EVAL 2 THERAPEUTIC RANGE: 15-30 mg/dL POTENTIAL TOXICITY VARIES WITH TIME FROM INGESTION. PLEASE CONSULT APPROPRIATE NOMOGRAM. 3 URINE, CLEAN CATCH 4 URINE SPECIMENS ARE SCREENED AT THE LISTED CUTOFFS DRUG CLASS INITIAL TEST LEVEL Amphetamines 1000 ng/mL Barbiturates 200 ng/mL Benzodiazepines 200 ng/mL Cannabinoids 50 ng/mL Cocaine Metabolite 300 ng/mL Methadone 300 ng/mL Opiates 300 ng/mL Any PRESUMPTIVE POSITIVE findings are UNCONFIRMED. Confirmatory testing is suggested if findings are unexpected. Please contact laboratory if confirmatory testing is desired. SPECIMENS ARE HELD FOR 72 HOURS. 5 HAD 3 SEIZURES 6 URINE, CLEAN CATCH 7 URINE SPECIMENS ARE SCREENED AT THE LISTED CUTOFFS DRUG CLASS INITIAL TEST LEVEL Amphetamines 1000 ng/mL Barbiturates 200 ng/mL Benzodiazepines 200 ng/mL Cannabinoids 50 ng/mL Cocaine Metabolite 300 ng/mL Methadone 300 ng/mL Opiates 300 ng/mL Any PRESUMPTIVE POSITIVE findings are UNCONFIRMED. Confirmatory testing is suggested if findings are unexpected. Please contact laboratory if confirmatory testing is desired. SPECIMENS ARE HELD FOR 72 HOURS. 8 seizure/"twitching" 9 PAIN IN STOMACH, FAINTED, SAID HAD SEIZURE 10 URINE, CLEAN CATCH 11 URINE SPECIMENS ARE SCREENED AT THE LISTED CUTOFFS DRUG CLASS INITIAL TEST LEVEL Amphetamines 1000 ng/mL Barbiturates 200 ng/mL Benzodiazepines 200 ng/mL Cannabinoids 50 ng/mL Cocaine Metabolite 300 ng/mL Methadone 300 ng/mL Opiates 300 ng/mL Any PRESUMPTIVE POSITIVE findings are UNCONFIRMED. Confirmatory testing is suggested if findings are unexpected. Please contact laboratory if confirmatory testing is desired. SPECIMENS ARE HELD FOR 72 HOURS. 12 EVAL 13 URINE, CLEAN CATCH 14 THERAPEUTIC RANGE: 15-30 mg/dL POTENTIAL TOXICITY VARIES WITH TIME FROM INGESTION. PLEASE CONSULT APPROPRIATE NOMOGRAM. 15 URINE SPECIMENS ARE SCREENED AT THE LISTED CUTOFFS DRUG CLASS INITIAL TEST LEVEL Amphetamines 1000 ng/mL Barbiturates 200 ng/mL Benzodiazepines 200 ng/mL Cannabinoids 50 ng/mL Cocaine Metabolite 300 ng/mL Methadone 300 ng/mL Opiates 300 ng/mL Any PRESUMPTIVE POSITIVE findings are UNCONFIRMED. Confirmatory testing is suggested if findings are unexpected. Please contact laboratory if confirmatory testing is desired. SPECIMENS ARE HELD FOR 72 HOURS. 16 STOMACH PAIN,LIGHTHEADED 17 NO BETA STREPTOCOCCI ISOLATED 18 SEIZURE EARLIER 19 Note: Persistent reduction for 3 months or more in an eGFR <60 mL/min/1.73 m2 defines CKD. Patients with eGFR values >/=60 mL/min/1.73 m2 may also have CKD if evidence of persistent proteinuria is present. The original MDRD equation for estimated GFR is not valid for patients less than 18 years of age. Additional information may be found at www.kdoqi.org. 20 Values below the stated reference ranges of AST and ALT can be seen in normal populations. Clinical correlation is suggested. 21 0.0 - 0.045 ng/mL: Normal 0.046 - 0.5 ng/mL: Suggestive 0.6 - 1.5 ng/mL: Consistent 22 E03.9 23 E03.9 Z13.220 24 Reference Guidelines*: Desirable: ........... < 200 mg/dL Borderline High: ..... 200-239 mg/dL High: ................ >=240 mg/dL * The National Cholesterol Education Program (NCEP) 25 Reference Guidelines*: Normal: ............. < 150 mg/dL Borderline High: .... 150-199 mg/dL High: ............... 200-499 mg/dL Very High: .......... > 500 mg/dL * Source: National Cholesterol Education Program (NCEP) 26 Reference Guidelines*: Low HDL: ..... < 40 mg/dL Normal: ..... 40-60 mg/dL Desirable: ... > 60 mg/dL *The National Cholesterol Education Program(NCEP) 27 Reference Guidelines*: Optimal:........... <100 mg/dL Near Optimal....... 100-129 mg/dL Borderline High.... 130-159 mg/dL High............... 160-189 mg/dL Very High.......... >=190 mg/dL * Source: National Cholesterol Education Program (NCEP) 28 Hamper Maker: [id number] JORGE GRAYSON 29 URINE SPECIMENS ARE SCREENED AT THE LISTED CUTOFFS DRUG CLASS INITIAL TEST LEVEL Amphetamines 1000 ng/mL Barbiturates 200 ng/mL Benzodiazepines 200 ng/mL Cannabinoids 50 ng/mL Cocaine Metabolite 300 ng/mL Methadone 300 ng/mL Opiates 300 ng/mL Any POSITIVE findings are UNCONFIRMED. Confirmatory testing is suggested if findings are unexpected. Please contact laboratory if confirmatory testing is desired. SPECIMENS ARE HELD FOR 72 HOURS. 30 Tests: Rapid HIV ab, Hep C AB, Hep BsAB, Hep B S AG Instructions: 10/27/15 0732: AOT Request previously reported as: Unable to add tests Tests: Rapid HIV ab, Hep C AB, Hep BsAB, Hep B S AG Instructions: Amended result called to: - 10/27/15 at 0732 31 No reportable results 32 Antibodies to HCV not detected; does not exclude early acute HCV infection. 33 Values >10 mIU/ML considered IMMUNE 34 Note: Persistent reduction for 3 months or more in an eGFR <60 mL/min/1.73 m2 defines CKD. Patients with eGFR values >/=60 mL/min/1.73 m2 may also have CKD if evidence of persistent proteinuria is present. The original MDRD equation for estimated GFR is not valid for patients less than 18 years of age. Additional information may be found at www.kdoqi.org. 35 Values below the stated reference ranges of AST and ALT can be seen in normal populations. Clinical correlation is suggested. 36 HBsAg not detected; does not exclude the possibility of exposure to or early acute infections with HBV. 37 Reference Guidelines*: Desirable: ........... < 200 mg/dL Borderline High: ..... 200-239 mg/dL High: ................ >=240 mg/dL * The National Cholesterol Education Program (NCEP) 38 Reference Guidelines*: Normal: ............. < 150 mg/dL Borderline High: .... 150-199 mg/dL High: ............... 200-499 mg/dL Very High: .......... > 500 mg/dL * Source: National Cholesterol Education Program (NCEP) 39 Reference Guidelines*: Low HDL: ..... < 40 mg/dL Normal: ..... 40-60 mg/dL Desirable: ... > 60 mg/dL *The National Cholesterol Education Program(NCEP) 40 Reference Guidelines*: Optimal:........... <100 mg/dL Near Optimal....... 100-129 mg/dL Borderline High.... 130-159 mg/dL High............... 160-189 mg/dL Very High.......... >=190 mg/dL * Source: National Cholesterol Education Program (NCEP) 41 Reporting Limit: 2.0 ng/mL Synonym(s): Zeldox(R); Geodon(R) In clinical trials, the following mean Plasma concentrations (+/- 1 sd) were reported in non-fasting subjects at steady-state: 14.8 +/- 6.7 ng/mL (10 mg/day), 44.6 +/- 48 ng/mL (40 mg/day), 118 +/- 80 ng/mL (80 mg/day), 139 +/- 81 ng/mL (120 mg/day). Steady-state concentrations occurred 1 to 3 days following initialization of dosing. Analysis by High Performance Liquid Chromatography/ TandemMass Spectrometry (LC-MS/MS) Performed at: [address] [id number] Sales Account Leader: Juan Jose Jean PhD, Phone: [phone] 42 URINE SPECIMENS ARE SCREENED AT THE LISTED CUTOFFS DRUG CLASS INITIAL TEST LEVEL Amphetamines 1000 ng/mL Barbiturates 200 ng/mL Benzodiazepines 200 ng/mL Cannabinoids 50 ng/mL Cocaine Metabolite 300 ng/mL Methadone 300 ng/mL Opiates 300 ng/mL Any POSITIVE findings are UNCONFIRMED. Confirmatory testing is suggested if findings are unexpected. Please contact laboratory if confirmatory testing is desired. SPECIMENS ARE HELD FOR 72 HOURS. 43 Note: Persistent reduction for 3 months or more in an eGFR <60 mL/min/1.73 m2 defines CKD. Patients with eGFR values >/=60 mL/min/1.73 m2 may also have CKD if evidence of persistent proteinuria is present. The original MDRD equation for estimated GFR is not valid for patients less than 18 years of age. Additional information may be found at www.kdoqi.org. 44 Values below the stated reference ranges of AST and ALT can be seen in normal populations. Clinical correlation is suggested. 45 Result confirmed by repeat analysis. 46 Acetaminophen concentration >150 ug/mL at four hours after ingestion and 50.0 ug/mL at twelve hours after ingestion are often associated with toxic reactions. 47 THERAPEUTIC RANGE: 15-30 mg/dL POTENTIAL TOXICITY VARIES WITH TIME FROM INGESTION. PLEASE CONSULT APPROPRIATE NOMOGRAM. 48 Result confirmed by repeat analysis. 49 ADDED 50 URINE SPECIMENS ARE SCREENED AT THE LISTED CUTOFFS DRUG CLASS INITIAL TEST LEVEL Amphetamines 1000 ng/mL Barbiturates 200 ng/mL Benzodiazepines 200 ng/mL Cannabinoids 50 ng/mL Cocaine Metabolite 300 ng/mL Methadone 300 ng/mL Opiates 300 ng/mL Any POSITIVE findings are UNCONFIRMED. Confirmatory testing is suggested if findings are unexpected. Please contact laboratory if confirmatory testing is desired. SPECIMENS ARE HELD FOR 72 HOURS. 51 Note: Persistent reduction for 3 months or more in an eGFR <60 mL/min/1.73 m2 defines CKD. Patients with eGFR values >/=60 mL/min/1.73 m2 may also have CKD if evidence of persistent proteinuria is present. The original MDRD equation for estimated GFR is not valid for patients less than 18 years of age. Additional information may be found at www.kdoqi.org. 52 Values below the stated reference ranges of AST and ALT can be seen in normal populations. Clinical correlation is suggested. 53 NORMAL THROAT MARITO 54 Note: Persistent reduction for 3 months or more in an eGFR <60 mL/min/1.73 m2 defines CKD. Patients with eGFR values >/=60 mL/min/1.73 m2 may also have CKD if evidence of persistent proteinuria is present. The original MDRD equation for estimated GFR is not valid for patients less than 18 years of age. Additional information may be found at www.kdoqi.org. 55 Note: Persistent reduction for 3 months or more in an eGFR <60 mL/min/ 1.73 m2 defines CKD. Patients with eGFR values >/=60 mL/min/1.73 m2 may also have CKD if evidence of persistent proteinuria is present. The original MDRD equation for estimated GFR is not valid for patients less than 18 years of age. Additional information may be found at www.kdoqi.org. Procedures Date CPT Code Description Status 10/28/2015 12658 Psychiatric Diag Eval W/Medical Service Completed 04/17/2012 03004 FX Metatarsal-Closed W/O Completed Encounters Type Date Location Provider CPT E/M Dx Office Visit 01/27/[address] [facility] [place] [address] S16.1xxD 10:45a Office Visit 11/22/[address] [facility] JOSEPH Ceja 62390 H66.92 10:45a Office Visit 11/11/2016 [facility] [place] [address] H66.92 3:15p Office Visit 10/28/[address] [place] [place] [address] Z00.01 10:45a G40.909 F31.9 F79 E03.9 Z13.220 Office Visit 09/10/2016 11:30a Family Medicine JOSEPH Ceja 16345 G40.909 Office Visit 09/07/2016 1:30p Family Medicine Marlen Cox PNP-BC, 08378 G40.909 APPLICATION ARCHITECT, Ibclc K02.9 Office Visit 07/10/2015 2:15p [place] [address] S60.059A Office Visit 06/25/2015 2:30p [place] [address] B86 F31.9 R13.10 Office Visit 06/03/2015 1:30p Family Medicine JOSEPH Ceja 62748 R13.10 J45.30 R05 R21 F31.9 Office Visit 05/27/2015 2:00p Family Medicine Tana Shultz M.D. 45190 R21 Office Visit 05/05/2015 1:00p [place] [address] Z00.00 F31.9 F84.9 J45.20 Z23 Office Visit 03/14/2015 11:45a Family Medicine Lucinda Cloud M.D. 07018 R05 Office Visit 02/24/2015 3:30p Family Medicine JOSEPH Ceja 52874 J20.9 R05 Plan of Care 09/07/2017 - Karla Harmon MDG40.909 Epilepsy, unsp, not intractable, without status epilepticusNew Labs:Phenytoin (Dilantin)Valproic AcidComments:CHECK LEVELS, INCREASE IF NEEDED; NO CHANGE IN DOSE FOR NOW.F31.9 Bipolar disorder, unspecifiedComments:CALL HERE FOR HELP, WE'LL TRY TO SEE YOU WHEN YOU NEEDWE'LL SEE YOU BACK IN MONTHAllNew Medication:[place] Carbonate ER 450 mgFollow up:1 MO
[2017-09-16 15:26] VITALS: BP 129/72
--- NOTE | 2017-09-16 15:30 | UC ---
Head Injury HPI - HPI Summary HPI Summary: Patient presents to urgent care stating he has dizziness and nausea since yesterday when he struck his head. Patient states he was "horse playing" with his older brother. Patient states he struck his left frontal area on for greater. Patient states he felt dizzy at the time but did not pass out. Pt states vision seems little blurry at times since incident. Patient states no blood from his HEENT. Patient denies chest pain or shortness of breath. Patient denies abdominal pain. Patient denies extremity pain, weakness, or paresthesias. Patient has not taken anything for pain. Patient hasn't applied ice. Patient does have some swelling to the left frontal area of his head. Patient states he has felt a little unsteady walking and riding his bike different than his baseline. He denies neck or back pain. Pt denies aggression trauma Patient medications reviewed this visit. - History Of Current Complaint Chief Complaint: UCHeadache Stated Complaint: HEAD INJURY Time Seen by Provider: 09/16/17 15:20 Hx Obtained From: Patient Onset/Duration: Sudden Onset Severity Currently: Moderate Severity Initially: Moderate Pain Intensity: 10 Pain Scale Used: 0-10 Numeric Associated Signs And Symptoms: Positive: Negative. Negative: LOC (Time In Secs. /Mins/Hrs) - Allergies/Home Medications Allergies/Adverse Reactions: Allergies Allergy/AdvReac Type Severity Reaction Status Date / Time bupropion [From Wellbutrin] Allergy Anaphylatic Verified 09/16/17 15:20 Shock clindamycin Allergy Anaphylatic Verified 09/16/17 15:20 Shock diphenhydramine Allergy Difficulty Verified 09/16/17 15:20 [From Benadryl] Breathing PMH/Surg Hx/FS Hx/Imm Hx Previously Healthy: Yes Other Neurological History: congenital neuro - Surgical History Surgical History: Yes Surgery Procedure, Year, and Place: T&A age 17 - Family History Known Family History: Positive: Unknown - patient does not know his family history, he is intellectualy impaired, Respiratory Disease Negative: Other - NO JOINT LAXITY - Social History Occupation: Employed Part-time Lives: With Family Alcohol Use: Rare Substance Use Type: None Smoking Status (MU): Never Smoked Tobacco Have You Smoked in the Last Year: No When Did the Patient Quit Smoking/Using Tobacco: 2006 Household Exposure Type: Cigarettes - Immunization History Most Recent Influenza Vaccination: 2017 Most Recent Tetanus Shot: 10/22/16 Review of Systems Constitutional: Negative Skin: Bruising Eyes: Blurred Vision Gastrointestinal: Nausea Genitourinary: Negative Motor: Negative Neurovascular: Other - intremittent dizziness All Other Systems Reviewed And Are Negative: Yes Physical Exam - Summary Physical Exam Summary: Vital Signs Reviewed: Yes A+Ox3, no distress, ambulatory without assistance Eyes: Conjunctiva Clear, JANETT. intact and full deviation left eye - baseline per pt ENT: Hearing grossly normal TM x 2 clear, mmoist, uvula midline, no exudate, no erythema eccymosis left frontal area 2cm mild edema no crepitus no discomfort or crepitus palpation facial bones Neck: Positive: Supple no pain c/t/l/s Respiratory: Positive: CTA throughout no w/r/ No respiratory distress, No accessory muscle use + CTA throughout no w/r Cardiovascular: RRR nl s1, s2 no m/r CBT <2 sec abd soft + BS nt/nd no guarding, no distension Musculoskeletal Exam: RIZZO x 4 without difficulty Strength Intact, ROM Intact Neurological: Positive: Alert, + sensation throughout CN 2-12: pt with left eye deviation at baseline + FNF b/l + heel/torre poor coordination - possible baseline second to congenital neuro + great toe extension + gross sensation throughout neg rhomberg + heel standing + moderate heel standing - ? baseline Psychological: Positive: Normal Response To Family Skin: see HEENT Triage Information Reviewed: Yes Vital Signs: Initial Vital Signs Temp 99.2 F 09/16/17 15:21 Pulse 72 09/16/17 15:21 Resp 17 09/16/17 15:21 BP 129/72 09/16/17 15:21 Pulse Ox 100 09/16/17 15:21 Diagnostics - Radiology No standard instances Xray Interpretation: No Acute Changes - Patient Name: CHARISSE RAND Medical Record# : [id number] Ordering Physician: Jennifer Harmon MD Acct.#: [id number] : 1990 Age: 27 Sex: M Location: [facility] Exam Date: 09/16/17 1545 ADM Status: REG ER Order Information: CT BRAIN WO Accession Number: [id number] CPT: 40162 Indication: Frontal trauma. CT of the brain was performed without IV contrast. Ventricular structures are midline. No midline shift is noted. The extraction spaces are unremarkable. There is no evidence of intracranial mass or hemorrhage. No other high or low density lesions are identified. Mastoid air cells and paranasal sinuses are unremarkable. IMPRESSION: NO INTRACRANIAL MASS OR HEMORRHAGE IS NOTED. <Electronically signed by Verónica Aguiar MD in [place]> 09/16/17 1607 Dictated By : Verónica Aguiar MD Dictated Date/Time: 09/16/17 1607 Transcribed Date/Time: 1605 Copy to: CC:Karla Harmon MD; Jennifer Harmon MD Imaging - [facility] Imaging - [facility] Imaging - [facility] [address] [address] ph [phone]) ph [phone]) ph ([phone]) 1 of 1 Radiology Interpretation Completed By: Radiologist Re-Evaluation - Re-Evaluation First Eval Re-Evaluation Time: 16:20 Comment: reviewed CT. no acute findings. reviewed plan of care - pt comfortable and in agreement with plan Head Injury Course/Dx - Course Course Of Treatment: Patient presents with report of intermittent dizziness and nausea since striking his left frontal area of his forehead yesterday. No loss of consciousness. No blood HEENT. Patient on exam with some subtle findings however patient with congenital neural defect and unclear whether these are related and baseline for the patient patient has not taken anything for pain. We'll give patient Tylenol and ice pack. Will check CT scan as patient does have left eye deviation which again may be his baseline. Patient is on anticoagulation. Discussed patient closed head injury. Patient does not drive. Patient was able to bike here and he says it's "pretty good" but a couple times felt a little balance disturbance. - Differential Dx/Diagnosis Provider Diagnoses: closed head injury. head contusion Discharge - Sign-Out/Discharge Documenting (check all that apply): Discharge/Admit/Transfer - Discharge Plan Condition: Stable Disposition: HOME Referrals: Karla Harmon MD [Primary Care Provider] - Additional Instructions: - Okay to alternate ibuprofen (Advil, Motrin) and Tylenol every 3 hours for pain. Take with food. Do NOT take for more than 4-5 days. - Apply ice (wrapped in a towel) 20 minutes at a time, 2-3 times for swelling and pain - stay well hydrated Drink plenty of non-alcoholic, non-caffinated beverages - contact you doctor to schedule a follow-up appointment early next week. Contact your doctor or return with questions or concerns - Billing Disposition and Condition Condition: STABLE Disposition: Home
[2017-09-16] MEDS ORDERED: Acetaminophen TAB* 325 MG PO ONE (15:46)
--- NOTE | 2017-09-16 16:10 | RAD ---
Indication: Frontal trauma. CT of the brain was performed without IV contrast. Ventricular structures are midline. No midline shift is noted. The extraction spaces are unremarkable. There is no evidence of intracranial mass or hemorrhage. No other high or low density lesions are identified. Mastoid air cells and paranasal sinuses are unremarkable. IMPRESSION: NO INTRACRANIAL MASS OR HEMORRHAGE IS NOTED.
== END 2017-09-16 16:26 | disposition home or self-care (01) ==
LOC: UCCORT 15:06
DX: S00.93XA Contusion of unspecified part of head, initial encounter (principal); H51.8 Other specified disorders of binocular movement; Z88.1 Allergy status to other antibiotic agents; Z88.8 Allergy status to other drugs, medicaments and biological substances; Z79.01 Long term (current) use of anticoagulants; X58.XXXA Exposure to other specified factors, initial encounter; Y93.89 Activity, other specified; Y92.9 Unspecified place or not applicable
CPT/HCPCS: 70450; 99212; A9270-GY; G0463

== ENCOUNTER 2017-09-20 20:02 | Emergency (ER) | payer MEDICARE, MEDICAID ==
[2017-09-20 20:24] VITALS: BP 130/71
--- NOTE | 2017-09-20 20:38 | ED ---
Lower Extremity - HPI Summary HPI Summary: 27 yr old riding his bike and had onset of right knee pain when peddling bike this evening, and has some discomfort in the anterior right knee when walking. No direct fall or trauma to knee. No swelling. - History of Current Complaint Chief Complaint: UCLowerExtremity Stated Complaint: RIGHT KNEE PAIN Time Seen by Provider: 09/20/17 20:27 Pain Intensity: 7 - Allergies/Home Medications Allergies/Adverse Reactions: Allergies Allergy/AdvReac Type Severity Reaction Status Date / Time bupropion [From Wellbutrin] Allergy Anaphylatic Verified 09/20/17 20:16 Shock clindamycin Allergy Anaphylatic Verified 09/20/17 20:16 Shock diphenhydramine Allergy Difficulty Verified 09/20/17 20:16 [From Benadryl] Breathing PMH/Surg Hx/FS Hx/Imm Hx Endocrine/Hematology History: Reports: Hx Thyroid Disease Psychiatric History: Reports: Hx Schizophrenia, Hx Bipolar Disorder - Surgical History Surgery Procedure, Year, and Place: T&A age 17 Infectious Disease History: No Infectious Disease History: Denies: Hx Clostridium Difficile, Hx Hepatitis, Hx Human Immunodeficiency Virus (HIV), Hx of Known/Suspected MRSA, Hx Shingles, Hx Tuberculosis, Hx Known/ Suspected VRE, Hx Known/Suspected VRSA, History Other Infectious Disease, Traveled Outside the [place] in Last 30 Days - Family History Known Family History: Positive: Unknown - patient does not know his family history, he is intellectualy impaired, Respiratory Disease Negative: Other - NO JOINT LAXITY - Social History Alcohol Use: Rare Substance Use Type: Reports: None Smoking Status (MU): Never Smoked Tobacco Have You Smoked in the Last Year: No Review of Systems Constitutional: Negative Positive: Other - knee pain All Other Systems Reviewed And Are Negative: Yes Physical Exam Triage Information Reviewed: Yes Vital Signs On Initial Exam: Initial Vitals Temp Pulse Resp BP Pulse Ox 98.5 F 75 18 130/71 99 09/20/17 20:19 09/20/17 20:19 09/20/17 20:19 09/20/17 20:19 09/20/17 20:19 Vital Signs Reviewed: Yes Appearance: Positive: Well-Appearing, No Pain Distress Skin: Positive: Warm, Skin Color Reflects Adequate Perfusion Head/Face: Positive: Normal Head/Face Inspection Eyes: Positive: EOMI Neck: Positive: Nontender Respiratory/Lung Sounds: Positive: Clear to Auscultation, Breath Sounds Present Cardiovascular: Positive: RRR. Negative: Murmur Musculoskeletal: Positive: Other - right knee without effusion, redness. He is a little tender over the patella. Neurological: Positive: Sensory/Motor Intact, Alert, Oriented to Person Place, Time, CN Intact II-III Psychiatric: Positive: Normal - [place] Coma Scale Best Eye Response: 4 - Spontaneous Best Motor Response: 6 - Obeys Commands Best Verbal Response: 5 - Oriented Coma Scale Total: 15 Diagnostics - Vital Signs Vital Signs Temp Pulse Resp BP Pulse Ox 09/20/17 20:19 98.5 F 75 18 130/71 99 - Laboratory Lab Statement: Any lab studies that have been ordered have been reviewed, and results considered in the medical decision making process. - Radiology right knee Xray Interpretation: Positive (See Comments) - small effusion Radiology Interpretation Completed By: Radiologist Lower Extremity Course/Dx - Course Course Of Treatment: 27 yr old with knee pain, onset when peddling bicycle this evening. He ambulates well. DC home. FU with orthopedics. Believe this is due to over use, strain. No sign of infection, redness. - Diagnoses Provider Diagnoses: Knee sprain Discharge - Sign-Out/Discharge Documenting (check all that apply): Discharge/Admit/Transfer - Discharge Plan Condition: Good Disposition: HOME Prescriptions: Ibuprofen TAB* [Motrin TAB* 400 MG] 400 mg PO Q6H PRN #14 tab PRN Reason: Pain Patient Education Materials: Knee Pain (ED), Swollen Knee Joint (ED) Referrals: Karla Harmon MD [Primary Care Provider] - 2 Days - Billing Disposition and Condition Condition: GOOD Disposition: Home
--- NOTE | 2017-09-20 21:20 | RAD ---
INDICATION: Right knee pain. TECHNIQUE: 4 views of the right knee were obtained. FINDINGS: The bones are normal alignment. No fracture is seen. There is a small joint effusion present. Joint spaces appear maintained. IMPRESSION: SMALL JOINT EFFUSION.
[2017-09-20] MEDS ORDERED: Ibuprofen TAB* 400 MG PO ONE (21:26)
== END 2017-09-20 21:34 | disposition home or self-care (01) ==
LOC: UCCORT 20:02
DX: S83.91XA Sprain of unspecified site of right knee, initial encounter (principal); Z88.8 Allergy status to other drugs, medicaments and biological substances; Z88.1 Allergy status to other antibiotic agents; X50.0XXA Overexertion from strenuous movement or load, initial encounter; Y93.89 Activity, other specified; Y92.9 Unspecified place or not applicable
CPT/HCPCS: 36415; 86703; 99212; G0463

== ENCOUNTER 2017-10-19 17:09 | Emergency (ER) | payer MEDICARE, MEDICAID ==
[2017-10-19 18:02] VITALS: BP 125/71
--- NOTE | 2017-10-19 18:56 | RAD ---
INDICATION: LEFT wrist pain following recent injury. COMPARISON: October 22, 2016 TECHNIQUE: AP and lateral views LEFT wrist. REPORT: Suggestion of mild diastases at the distal radioulnar joint concerning for potential triangular fibrocartilage injury. No cortical disruption or suspicious trabecular irregularity to suggest fracture. Unremarkable soft tissue contours. IMPRESSION: #. Suggestion of mild diastases at the distal radioulnar joint concerning for potential triangular fibrocartilage injury. #. Negative for fracture.
--- NOTE | 2017-10-19 18:58 | RAD ---
Indication: LEFT forearm pain following recent injury. Comparison: Wrist radiographs of the same date. Technique: AP and lateral views LEFT radius and ulna. REPORT AND IMPRESSION: #. Suggestion of mild diastases at the distal radioulnar joint, reference the AP view from the wrist exam, concerning for potential triangular fibrocartilage injury. #. Negative for fracture. #. Unremarkable soft tissue contours.
--- NOTE | 2017-10-19 19:00 | RAD ---
INDICATION: LEFT elbow pain following recent injury. COMPARISON: LEFT forearm of the same date. TECHNIQUE: AP and lateral views LEFT elbow. REPORT: Negative for fat pad displacement to indicate effusion. Negative for fracture or malalignment. Mild dorsal soft tissue swelling. IMPRESSION: #. Mild dorsal soft tissue swelling without additional radiographic finding.
--- NOTE | 2017-10-19 19:10 | UC ---
Upper Extremity HPI - History of Current Complaint Chief Complaint: UCUpperExtremity Stated Complaint: RT ARM PAIN Time Seen by Provider: 10/19/17 18:04 Onset/Duration: Lasting Days Severity Initially: Moderate Severity Currently: Moderate Pain Intensity: 4 Location Of Pain: Is Discrete @ Character: Sharp Aggravating Factor(s): Nothing Alleviating Factor(s): Nothing Associated Signs And Symptoms: Positive: Negative - hx. of cerebral palsy - Allergies/Home Medications Allergies/Adverse Reactions: Allergies Allergy/AdvReac Type Severity Reaction Status Date / Time bupropion [From Wellbutrin] Allergy Anaphylatic Verified 09/20/17 20:16 Shock clindamycin Allergy Anaphylatic Verified 09/20/17 20:16 Shock diphenhydramine Allergy Difficulty Verified 09/20/17 20:16 [From Benadryl] Breathing Home Medications: Home Medications Acetaminophen [APAP] 325 mg PO Q8H 10/19/17 [History Confirmed 10/19/17] PMH/Surg Hx/FS Hx/Imm Hx Previously Healthy: Yes - hx. of cerebral palsy, hx. of seizure disorder Other Neurological History: hx. of cerebral palsy, seizure disorder - Surgical History Surgical History: Yes Surgery Procedure, Year, and Place: T&A age 17. EYE SURGERY - Family History Known Family History: Positive: Unknown - patient does not know his family history, he is intellectualy impaired, Respiratory Disease Negative: Other - NO JOINT LAXITY - Social History Alcohol Use: Rare Substance Use Type: None Smoking Status (MU): Never Smoked Tobacco Have You Smoked in the Last Year: No When Did the Patient Quit Smoking/Using Tobacco: 2006 Household Exposure Type: Cigarettes - Immunization History Most Recent Influenza Vaccination: 2017 Most Recent Tetanus Shot: 10/22/16 Review of Systems Constitutional: Negative Skin: Negative Eyes: Negative ENT: Negative Respiratory: Negative Cardiovascular: Negative Gastrointestinal: Negative Genitourinary: Negative Motor: Other - hx. of cerebral palsy Musculoskeletal: Other: - hx. of cerebral palsy Neurological: Weakness, Paresthesia All Other Systems Reviewed And Are Negative: Yes Physical Exam Triage Information Reviewed: Yes Completion Of Physical Exam Limited Due To: Other - speech deficit, some cognitive deficits as well Vital Signs: Initial Vital Signs Temp 37.7 C 10/19/17 17:54 Pulse 81 10/19/17 17:54 Resp 20 10/19/17 17:54 BP 125/71 10/19/17 17:54 Pulse Ox 99 10/19/17 17:54 Vital Signs Reviewed: Yes Eye Exam: Normal ENT Exam: Normal ENT: Positive: Normal ENT inspection Dental Exam: Normal Neck exam: Normal Neck: Positive: Supple Respiratory Exam: Normal Cardiovascular Exam: Normal Abdominal Exam: Normal Musculoskeletal Exam: Other - normal flexion and extension of the fingers Musculoskeletal: Positive: Other: - pain with motion of the wrist Neurological Exam: Other - sensory exam consistent with superficial branch of radial nerve injury with numbness of the dorsal portion of hand on radial side Upper Extremity Course/Dx - Differential Dx/Diagnosis Provider Diagnoses: trianglular fibrocartilage injury of the wrist. superficial branch of radial nerve injury left hand Discharge - Sign-Out/Discharge Documenting (check all that apply): Patient Departure - Discharge Plan Condition: Good Disposition: HOME Patient Education Materials: Wrist Injury (ED), Radial Nerve Palsy (ED) Referrals: Karla Harmon MD [Primary Care Provider] - Yves Dunlap MD [Medical Doctor] - Rosa Vargas MD [Medical Doctor] - - Billing Disposition and Condition Condition: GOOD Disposition: Home
== END 2017-10-19 19:43 | disposition home or self-care (01) ==
LOC: UCCORT 17:09
DX: S69.91XA Unspecified injury of right wrist, hand and finger(s), initial encounter (principal); S64.22XA Injury of radial nerve at wrist and hand level of left arm, initial encounter; X58.XXXA Exposure to other specified factors, initial encounter; Y93.9 Activity, unspecified; Y92.9 Unspecified place or not applicable; G80.9 Cerebral palsy, unspecified; G40.909 Epilepsy, unspecified, not intractable, without status epilepticus; Z88.1 Allergy status to other antibiotic agents; Z88.8 Allergy status to other drugs, medicaments and biological substances
CPT/HCPCS: 99211; G0463

== ENCOUNTER 2017-10-25 20:27 | Emergency (ER) | payer MEDICARE, MEDICAID ==
[2017-10-25 20:43] VITALS: BP 127/78
--- NOTE | 2017-10-25 21:08 | UC ---
Hand/Wrist HPI - HPI Summary HPI Summary: 27 yo male with CP presents with complaints that the volar orthoglass splint that was put on him for possible TFCC injury (left wrist) He is right handed - History Of Current Complaint Chief Complaint: UCUpperExtremity Stated Complaint: CAST COMPLAINT Time Seen by Provider: 10/25/17 20:34 Hx Obtained From: Patient Onset/Duration: Gradual Onset, Lasting Days Severity Initially: Mild Severity Currently: Severe Pain Intensity: 10 Pain Scale Used: 0-10 Numeric Character Of Pain: Unable To Describe Alleviating Factor(s): Rest Associated Signs And Symptoms: Positive: Negative Related History: Dominant Hand Right - Allergies/Home Medications Allergies/Adverse Reactions: Allergies Allergy/AdvReac Type Severity Reaction Status Date / Time bupropion [From Wellbutrin] Allergy Anaphylatic Verified 09/20/17 20:16 Shock clindamycin Allergy Anaphylatic Verified 09/20/17 20:16 Shock diphenhydramine Allergy Difficulty Verified 09/20/17 20:16 [From Benadryl] Breathing PMH/Surg Hx/FS Hx/Imm Hx Previously Healthy: Yes - Surgical History Surgical History: Yes Surgery Procedure, Year, and Place: T&A age 17. EYE SURGERY - Family History Known Family History: Positive: Unknown - patient does not know his family history, he is intellectualy impaired, Respiratory Disease Negative: Other - NO JOINT LAXITY - Social History Alcohol Use: Rare Substance Use Type: None Smoking Status (MU): Never Smoked Tobacco Have You Smoked in the Last Year: No When Did the Patient Quit Smoking/Using Tobacco: 2006 Household Exposure Type: Cigarettes - Immunization History Most Recent Influenza Vaccination: 2017 Most Recent Tetanus Shot: 10/22/16 Review of Systems Constitutional: Negative Skin: Negative Eyes: Negative ENT: Negative Respiratory: Negative Cardiovascular: Negative Gastrointestinal: Negative Genitourinary: Negative Motor: Negative Neurovascular: Negative Musculoskeletal: Arthralgia Neurological: Negative Psychological: Negative Is Patient Immunocompromised?: No All Other Systems Reviewed And Are Negative: Yes Physical Exam Triage Information Reviewed: Yes Appearance: Well-Appearing, No Pain Distress, Well-Nourished Vital Signs: Initial Vital Signs Temp 99 F 10/25/17 20:38 Pulse 69 10/25/17 20:38 Resp 18 10/25/17 20:38 BP 127/78 10/25/17 20:38 Pulse Ox 99 10/25/17 20:38 Eyes: Positive: Conjunctiva Clear ENT: Negative: Hearing grossly normal, Nasal congestion, Nasal drainage, Trismus , Muffled voice, Sinus tenderness, Uvula midline Neck: Positive: Supple, Nontender, No Lymphadenopathy Respiratory: Positive: Lungs clear, Normal breath sounds, No respiratory distress, No accessory muscle use Cardiovascular: Positive: RRR, No Murmur Musculoskeletal: Positive: No Edema, Other: - contures/deformities , tender unlar aspect Neurological: Positive: Alert Psychological Exam: Normal Skin Exam: Normal Hand/Wrist Course/Dx - Course Course Of Treatment: states he is much more comfortable with cock up splint - Differential Dx/Diagnosis Provider Diagnoses: left wrist pain of uncertain cause. ? left TFCC injury Discharge - Sign-Out/Discharge Documenting (check all that apply): Patient Departure - Discharge Plan Condition: Stable Disposition: HOME Patient Education Materials: Splint Care (ED) Referrals: Karla Harmon MD [Primary Care Provider] - Additional Instructions: you were issued a prefabricated splint please keep this on until seen by bone doctor recheck for any concerns - Billing Disposition and Condition Condition: STABLE Disposition: Home
== END 2017-10-25 21:07 | disposition home or self-care (01) ==
LOC: UCCORT 20:27
DX: M25.532 Pain in left wrist (principal); Z88.1 Allergy status to other antibiotic agents; Z88.8 Allergy status to other drugs, medicaments and biological substances; Z87.891 Personal history of nicotine dependence
CPT/HCPCS: 99211; G0463

== ENCOUNTER 2017-11-10 19:55 | Emergency (ER) | payer MEDICARE, MEDICAID ==
[2017-11-10 20:15] VITALS: BP 121/71
--- NOTE | 2017-11-10 20:20 | UC ---
Epistaxis Nasal HPI - HPI Summary HPI Summary: The patient is a 27-year-old male that presents here for the evaluation of her right sided nosebleed that occurred a few hours ago. He states that he was just leaving the [facility] emergency room after visiting them for N neck injury. Atherosclerotic in the hospital he developed a right-sided nosebleed. It stopped with pressure. He denies any history of excessive bleeding. - History of Current Complaint Chief Complaint: UCGeneralIllness Stated Complaint: NOSE BLEEDS Time Seen by Provider: 11/10/17 20:01 Hx Obtained From: Patient Onset/Duration: Sudden Onset, Lasting Minutes Timing: Constant Severity Initially: Mild Severity Currently: None Pain Intensity: 5 - neck Pain Scale Used: 0-10 Numeric Character: Light Aggravating Factor(s): Nothing Alleviating Factor(s): Pressure Associated Signs And Symptoms: Positive: Negative - Allergies/Home Medications Allergies/Adverse Reactions: Allergies Allergy/AdvReac Type Severity Reaction Status Date / Time bupropion [From Wellbutrin] Allergy Anaphylatic Verified 11/10/17 20:07 Shock clindamycin Allergy Anaphylatic Verified 11/10/17 20:07 Shock diphenhydramine Allergy Difficulty Verified 11/10/17 20:07 [From Benadryl] Breathing PMH/Surg Hx/FS Hx/Imm Hx Previously Healthy: Yes Neurological History: Seizures Other Neurological History: CP - Surgical History Surgical History: Yes Surgery Procedure, Year, and Place: T&A age 17. EYE SURGERY - Family History Known Family History: Positive: Unknown - patient does not know his family history, he is intellectualy impaired, Respiratory Disease Negative: Other - NO JOINT LAXITY - Social History Alcohol Use: Rare Substance Use Type: None Smoking Status (MU): Never Smoked Tobacco Have You Smoked in the Last Year: No When Did the Patient Quit Smoking/Using Tobacco: 2006 Household Exposure Type: Cigarettes - Immunization History Most Recent Influenza Vaccination: 2017 Most Recent Tetanus Shot: 10/22/16 Review of Systems Constitutional: Negative Skin: Negative Eyes: Negative ENT: Negative Respiratory: Negative Cardiovascular: Negative Gastrointestinal: Negative Genitourinary: Negative Motor: Negative Neurovascular: Negative Musculoskeletal: Negative Neurological: Negative Psychological: Negative Is Patient Immunocompromised?: No All Other Systems Reviewed And Are Negative: Yes Physical Exam Triage Information Reviewed: Yes Appearance: Well-Appearing, No Pain Distress, Well-Nourished Vital Signs: Initial Vital Signs Temp 99 F 11/10/17 20:10 Pulse 82 11/10/17 20:10 Resp 22 11/10/17 20:10 BP 121/71 11/10/17 20:10 Pulse Ox 99 11/10/17 20:10 Vital Signs Reviewed: Yes Eyes: Positive: Conjunctiva Clear ENT: Positive: Hearing grossly normal, Pharynx normal, Pharyngeal erythema, Other - no active bleeding/bleeding site not identified. Negative: Nasal congestion, Nasal drainage, Tonsillar swelling, Tonsillar exudate, Trismus, Muffled voice, Hoarse voice Neck: Positive: Supple, Nontender, No Lymphadenopathy Respiratory: Positive: Lungs clear, Normal breath sounds, No respiratory distress Cardiovascular: Positive: RRR Musculoskeletal: Positive: Other: - left wrist in cast Neurological: Positive: Alert Skin Exam: Normal Epistaxis Nasal Course/Dx - Differential Dx/Diagnosis Provider Diagnoses: epistaxis (anterior) resolved Discharge - Sign-Out/Discharge Documenting (check all that apply): Patient Departure - Discharge Plan Condition: Stable Disposition: HOME Patient Education Materials: Nosebleed (ED) Referrals: Karla Harmon MD [Primary Care Provider] - 1 Day (if not better) Additional Instructions: apply pressure if bleeding recurs hold pressure for 15 minutes before checking it apply vasoline to nostril at betime take it easy for 24 hours - Billing Disposition and Condition Condition: STABLE Disposition: Home
== END 2017-11-10 20:37 | disposition home or self-care (01) ==
LOC: UCCORT 19:55
DX: R04.0 Epistaxis (principal); Z88.1 Allergy status to other antibiotic agents; Z88.8 Allergy status to other drugs, medicaments and biological substances
CPT/HCPCS: 99211; G0463

== ENCOUNTER 2017-11-19 18:27 | Emergency (ER) | payer MEDICARE, MEDICAID ==
--- OUTSIDE RECORDS SUMMARY | 2017-11-19 18:36 | XMS REPORT ---
:1990 External Reference #:[id number] Author Organization [facility] Address [address], [address] [place] [address] Phone [phone] Care Team Providers Name Role Phone Karla Harmon MD Care Team Information Senior Physical Therapist Unavailable Karla Harmon MD Primary Care Physician Unavailable Payers Type Date Identification Numbers Payment Provider Subscriber Commercial Policy Number: [id number] [employer] Doug Dawn PayID: [id number] [address] [place] [address] Medicaid Policy Number: [id number] Medicaid Doug Dawn Group Name: 1 1 [address] PayID: [id number] [place] [address] Medigap Part B PayID: [id number] [facility] Doug Dawn [facility] [address] [place] [address] Commercial Expires: 2015 Policy Number: [place] Medicaid Doug Dawn [id number] PayID: [id number] [address] [place] [address] Problems Date Description Provider Status Onset: 08/27/2013 [...] MD Active Onset: 09/07/2016 Epilepsy Marlen Cox, PNP-BC, [employer]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 delay First Sister dev. delay Social History Type Date Description Comments Lives With Alone Occupation Currently Working [employer] job Work Status Currently Working Hand Dominance Right-handed Cigarette Use Never Smoked Cigarettes ETOH Use Denies alcohol use Smoking Patient has never smoked Recreational Drug Use Never Used Drugs Daily Caffeine Consumes on average 1 pot of regular coffee per day Java Lead Engineer Name Mother Java Lead Engineer Name prev., was adopted at 6 yrs and raised by adopted mo. who accompanies Allergies, Adverse Reactions, Alerts Date Description Reaction Status Severity Comments 11/28/2012 Risperidone active 06/25/2015 Montelukast active 01/27/2017 Benadryl active 01/27/2017 Clindamycin active 01/27/2017 Wellbutrin active 04/17/2012 NKDA inactive Medications Medication Date Status Form Strength Qnty SIG Indications Ordering Provider Topaz 09/07 Active Tablets 450mg 60tab 1 cap by Karla Carbonate ER s renae Harmon MD twice a day Depakote ER 09/07 Active Tablets 500mg 120ta 2 Tab In ER 24HR bs Am And 2 MD Faustino Tabs AT Bedtime. Note New Dose Ibuprofen 01/27 Active Tablets 600mg take one tablet by MD Faustino mouth 3X/Day with food or snack as needed for pain Cyclobenzaprine 01/27 Active Tablets 10mg 60tab 1 by Krala HOGAN giovanny Harmon MD three times a day as needed muscle spasms ER Doc Ondansetron 11/22 Active Tablets 4mg 30tab 1 by Elmer Trent Dispers s JOSEPH Mcdowell every 4 hour as needed Levothyroxine 10/03 Active Tablets 25mcg 30tab Take One Sodium s Tablet By MD Faustino Mouth Every Day Loradamed 09/10 Active Tablets 10mg 90tab one a day s MD Faustino Loxapine 11/23 Active Capsules 10mg 30cap take one Succinate s capsule MD Faustino by mouth at bedtime Proair HFA 02/24 Active Aerosol 108(90Bas 8.500 inhale J20.9 e) gm two puffs MD Faustino mcg/Act by mouth every 4 hours as needed Vitamin D3 Super Active Capsules 2000Unit 90cap 1 by Karla Strength / s mouth MD Faustino every day Neomycin/Polymyx 11/22 Hx Solution [id number] 10ml 4 drops Elmer in/Hydrocortison /2016 - to JOSEPH Portillo e (Otic) - bilateral 11/27 ear canal four times a day for 5 days Amoxicillin 11/11 Hx Tablets 875mg 20tab 1 by H66.92 s mouth MD Faustino - twice a Topaz 11/23 Hx Capsules 600mg 180ca 1 by ps mouth MD Faustino - twice a Depakote 11/23 Hx Tablets 500mg 90tab one tab s by mouth MD Faustino - at 09/07 Bedtime along with the 250mg x3 tabs Cephalexin 07/09 Hx Capsules 500mg - 11/23 Divalproex 06/24 Hx Caps 125mg 240ca 4 caps in Sprinkle ps am mixed MD Faustino - [...] Hx Chewtabs 5mg 60uni 2 tablets J45.30 Ela ts by mouth JOSEPH Portillo - every day 06/05 Betamethasone 05/27 Hx Ointment 0.1% 15gm apply to R21 Karla Valerate rash on MD Faustino - arm twice 09/07 a Wellbutrin XL 05/05 Hx Tablets 150mg 30tab Take One Kian Munoz ER 24HR s Tablet By MD Chaka - Mouth 10/30 Every Dextromethorphan 03/14 Hx Syrup 10-100mg/ 120ml 1 R05 Karla -Guaifenesin /2014 5ML teaspoon MD Faustino - by mouth 09/07 every hours as needed Benzonatate 02/24 Hx Capsules 200mg 45cap one R0 Jennifermya s tablet by JOSEPH Portillo - mouth 03/14 every hours as needed cough Levocetirizine 06/20 Hx Tablets 5mg 30tab 1 by Carrington Dihydrochloride /2014 s mouth MD Tana - every day 02/24 Clotrimazole/Bet 01/25 Hx Cream 45uni thin cindy Shultz ts layer to MD Tana Dipropionate - rash 05/27 twice a day Wellbutrin XL 08/27 Hx Tablets 150mg 30tab Take One Carrington ER 24HR s Tablet By MD Tana - Mouth 05/05 Meloxicam 04/18 Hx Tablets 15mg 30tab take 1 Daron Hutson s tablet po - q day. 02/24 Depakote ER Hx Tablets 500mg 60tab 2 by Carrington, /0000 ER 24HR s mouth MD Tana - every day 06/24 Divalproex Hx Tablets 250mg 30tab 1 by Carrington, Sodium ER /0000 ER 24HR s mouth MD Tana - every day 02/24 Ziprasidone HCL 00 Hx Capsules 60mg 2 by Carrington, /0000 mouth MD Tana - every at 02/24 Topaz Hx Capsules 150mg 1 by Ezekiel Carbonate /0000 mouth Elena, - every day RPAC 02/24 Geodon 00 Hx Capsules 80mg 90cap 1 by Karla /0000 s mouth MD Faustino - every at 10/30 bedtime Topaz Hx Tablets 450mg 1 by Karla Carbonate ER /0000 ER mouth MD Faustino - every day 11/23 Penicillin V Hx Tablets 500mg 1 PO tid Amy Easley, Potassium /0000 MD - 06/24 Ibuprofen Hx Tablets 800mg Unknown /0000 - 01/27 Amoxicillin Hx Capsules 500mg 1 by Unknown /0000 mouth - three 09/10 times day x 7 days Divalproex Hx Tablets 250mg 90tab 3 tabs at Karla Sodium ER /0000 ER 24HR s bedtime MD Faustino - along 09/07 with 500 mg dose Immunizations CPT Code Status Date Vaccine Lot # [id number] Given 05/05/2015 Influenza Vaccine (Fluzone) Age 3 And Older [id number] U-Td Given 06/13/2014 Td(Adult),Unspecified Vital Signs Date Vital Result Comment 10/26/2017 BP Systolic Sitting Left Arm 138 mmHg BP Diastolic Sitting Left Arm 77 mmHg Body Temperature 97.9 F Heart Rate 66 /min Respiratory Rate 17 /min Height 68 inches 5'8" Weight 153.00 lb BMI (Body Mass Index) 23.3 kg/m2 BSA (Body Surface Area) 1.82 m2 [place] body weight in kilograms 70 O2 % BldC Oximetry 98 % 09/07/2017 BP Systolic 132 mmHg BP Diastolic 75 mmHg Body Temperature 98.2 F Heart Rate 63 /min Respiratory Rate 18 /min Height 68 inches 5'8" Weight 160.00 lb BMI (Body Mass Index) 24.3 kg/m2 BSA (Body Surface Area) 1.86 m2 [place] body weight in kilograms 70 01/27/2017 BP Systolic Sitting Resting Right Arm 127 mmHg BP Diastolic Sitting Resting Right Arm 72 mmHg Heart Rate 80 /min Height 68 inches 5'8" Weight 150.00 lb BMI (Body Mass Index) 22.8 kg/m2 BSA (Body Surface Area) 1.81 m2 [place] body weight in kilograms 70 11/22/2016 BP Systolic 118 mmHg BP Diastolic 80 mmHg Body Temperature 98.9 F Height 68 inches 5'8" Weight 148.00 lb BMI (Body Mass Index) 22.5 kg/m2 BSA (Body Surface Area) 1.80 m2 [place] body weight in kilograms 70 11/11/2016 BP Systolic Sitting Left Arm 116 mmHg BP Diastolic Sitting Left Arm 68 mmHg Body Temperature 98.8 F Heart Rate 88 /min Respiratory Rate 18 /min Height 68 inches 5'8" Weight 148.00 lb BMI (Body Mass Index) 22.5 kg/m2 BSA (Body Surface Area) 1.80 m2 [place] body weight in kilograms 70 10/28/2016 BP Systolic 132 mmHg BP Diastolic 80 mmHg Heart Rate 74 /min Height 68 inches 5'8" Weight 151.00 lb BMI (Body Mass Index) 23.0 kg/m2 BSA (Body Surface Area) 1.81 m2 [place] body weight in kilograms 70 09/10/2016 BP Systolic Sitting Left Arm 118 mmHg BP Diastolic Sitting Left Arm 72 mmHg Heart Rate 76 /min Respiratory Rate 18 /min Height 68 inches 5'8" Weight 149.00 lb BMI (Body Mass Index) 22.7 kg/m2 BSA (Body Surface Area) 1.80 m2 [place] body weight in kilograms 70 09/07/2016 BP [...] Result H/L Range Note CBS W/Automated Diff 11/12/2017 White Blood Count 9.7 K/uL 3.4-10.5 1 Red Blood Count 4.38 M/uL 4.20-5.80 1 Hemoglobin 13.1 gm/dL 12.8-17.0 1 Hematocrit 39.8 % 38.0-48.0 1 Mean Cell Volume 90.9 fl 80.0-96.0 1 Mean Corpuscular HGB 29.9 pg 27.0-33.0 1 Mean Corpuscular HGB Conc 32.9 g/dL 31.7-36.0 1 Platelet Count 230 K/uL 155-360 1 Red Cell Distri Width SD 42.0 fl 36-51 1 Red Cell Distri Width %CV 12.9 % 11.6-15.8 1 Mean Platelet Volume 11.3 fL High 6.6-10.6 1 Neut% 61.5 % 33.0-73.0 1 Lymph % 30.9 % 20.0-42.0 1 Foster % 6.9 % 0.0-10.0 1 Eo% 0.5 % 0.0-6.6 1 Bas% 0.2 % 0.0-1.1 1 Neut# 5.94 K/uL 1.8-7.0 1 Lymph # 2.99 K/uL 1.0-4.0 1 Foster # 0.67 K/uL 0.0-0.8 1 Eos # 0.05 K/uL 0.0-0.5 1 Baso # 0.02 K/uL 0.0-0.1 1 Comprehensive Metabolic Panel 11/12/2017 Glucose 136 mg/dL High 74-106 1 BUN 17 mg/dL 7-18 1 Creatinine 0.8 mg/dL 0.6-1.3 1 Glom Filtration Rate, Estimate >60 mL/min >60 1 If >60 mL/min >60 1, 2 BUN/Creat 21.2 ratio 1 Sodium 143 mmol/L 136-145 1 Potassium 3.5 mmol/L 3.5-5.1 1 Chloride 108 mmol/L High 98-107 1 Carbon Dioxide 26 mmol/L 21-32 1 Anion Gap 9 mEq/L 8-16 1 Calcium 7.9 mg/dL Low 8.5-10.1 1 Total Protein 6.8 g/dL 6.4-8.2 1 Albumin 3.7 g/dL 3.4-5.0 1 Globulin 3.1 g/dL 1.9-4.3 1 Alb/Glob 1.2 ratio 1 Bilirubin,Total 0.5 mg/dL 0.2-1.0 1 Sgot/Ast 13 U/L Low 15-37 1, 3 SGPT/Alt 22 U/L 12-78 1 Alkaline Phosphatase 58 U/L 45-117 1 Aot Request 11/06/2017 Aot Request Test(s) added 4, 5 Tests to be added: lithium 4 CBS W/Automated Diff 11/06/2017 White Blood Count 8.1 K/uL 3.4-10.5 4 Red Blood Count 4.89 M/uL 4.20-5.80 4 Hemoglobin 14.5 gm/dL 12.8-17.0 4 Hematocrit 44.2 % 38.0-48.0 4 Mean Cell Volume 90.4 fl 80.0-96.0 4 Mean Corpuscular HGB 29.7 pg 27.0-33.0 4 Mean Corpuscular HGB Conc 32.8 g/dL 31.7-36.0 4 Platelet Count 240 K/uL 155-360 4 Red Cell Distri Width SD 42.3 fl 36-51 4 Red Cell Distri Width %CV 12.9 % 11.6-15.8 4 Mean Platelet Volume 11.1 fL High 6.6-10.6 4 Neut% 56.6 % 33.0-73.0 4 Lymph % 34.2 % 20.0-42.0 4 Foster % 7.7 % 0.0-10.0 4 Eo% 1.1 % 0.0-6.6 4 Bas% 0.4 % 0.0-1.1 4 Neut# 4.57 K/uL 1.8-7.0 4 Lymph # 2.76 K/uL 1.0-4.0 4 Foster # 0.62 K/uL 0.0-0.8 4 Eos # 0.09 K/uL 0.0-0.5 4 Baso # 0.03 K/uL 0.0-0.1 4 Laboratory test finding 11/06/2017 Salicylate < 1.7 mg/dL Low 2.8-20.0 4 , 6 Comprehensive Metabolic Panel 11/06/2017 Glucose 100 mg/dL 74-106 4 BUN 10 mg/dL 7-18 4 Creatinine 0.8 mg/dL 0.6-1.3 4 Glom Filtration Rate, Estimate >60 mL/min >60 4 If >60 mL/min >60 4, 7 BUN/Creat 12.5 ratio 4 Sodium 143 mmol/L 136-145 4 Potassium 3.6 mmol/L 3.5-5.1 4 Chloride 108 mmol/L High 98-107 4 Carbon Dioxide 26 mmol/L 21-32 4 Anion Gap 9 mEq/L 8-16 4 Calcium 8.5 mg/dL 8.5-10.1 4 Total Protein 7.5 g/dL 6.4-8.2 4 Albumin 4.1 g/dL 3.4-5.0 4 Globulin 3.4 g/dL 1.9-4.3 4 Alb/Glob 1.2 ratio 4 Bilirubin,Total 1.2 mg/dL High 0.2-1.0 4 Sgot/Ast 12 U/L Low 15-37 4, 8 SGPT/Alt 21 U/L 12-78 4 Alkaline Phosphatase 63 U/L 45-117 4 Laboratory test finding 11/06/2017 Ethyl Alcohol < 3.0 mg/dL 4 Laboratory test finding 11/06/2017 Topaz 0.20 mmol/L Low 0.60-1.20 4 CBC 10/17/2017 White Blood Count 8.1 K/uL 3.4-10.5 9 Red Blood Count 4.59 M/uL 4.20-5.80 9 Hemoglobin 13.7 gm/dL 12.8-17.0 9 Hematocrit 42.7 % 38.0-48.0 9 Mean Cell Volume 93.0 fl 80.0-96.0 9 Mean Corpuscular HGB 29.8 pg 27.0-33.0 9 Mean Corpuscular HGB Conc 32.1 g/dL 31.7-36.0 9 Platelet Count 245 K/uL 155-360 9 Red Cell Distri Width %CV 12.9 % 11.6-15.8 9 Mean Platelet Volume 11.8 fL High 6.6-10.6 9 Comprehensive Metabolic Panel 10/17/2017 Glucose 91 mg/dL 74-106 9 BUN 14 mg/dL 7-18 9 Creatinine 0.7 mg/dL 0.6-1.3 9 Glom Filtration Rate, Estimate >60 mL/min >60 9 If >60 mL/min >60 9, 10 BUN/Creat 20.0 ratio 9 Sodium 141 mmol/L 136-145 9 Potassium 4.4 mmol/L 3.5-5.1 9 Chloride 109 mmol/L High 98-107 9 Carbon Dioxide 26 mmol/L 21-32 9 Anion Gap 6 mEq/L Low 8-16 9 Calcium 8.3 mg/dL Low 8.5-10.1 9 Total Protein 6.7 g/dL 6.4-8.2 9 Albumin 3.5 g/dL 3.4-5.0 9 Globulin 3.2 g/dL 1.9-4.3 9 Alb/Glob 1.1 ratio 9 Bilirubin,Total 0.4 mg/dL 0.2-1.0 9 Sgot/Ast 17 U/L 15-37 9 SGPT/Alt 19 U/L 12-78 9 Alkaline Phosphatase 63 U/L 45-117 9 Laboratory test finding 10/17/2017 Topaz 0.47 mmol/L Low 0.60-1.20 9 Drugs Of Abuse-Urine 10/16/2017 Amphetamines (Urine) Negative 9 Screen 7 Barbiturates (Urine) Negative 9 Benzodiazepines (Urine) Negative 9 Cannabinoids (Urine) Negative 9 Cocaine Metabolite (Urine) Negative 9 Methadone (Urine) Negative 9 Opiates (Urine) Negative 9 Urine Cutoffs * 9, 11 Laboratory test finding 10/16/2017 Topaz 0.24 mmol/L Low 0.60-1.20 9 Laboratory test finding 10/16/2017 Topaz 0.34 mmol/L Low 0.60-1.20 9 Basic Metabolic Panel 10/16/2017 Glucose 96 mg/dL 74-106 9 BUN 11 mg/dL 7-18 9 Creatinine 0.7 mg/dL 0.6-1.3 9 Glom Filtration Rate, Estimate >60 mL/min >60 9 If >60 mL/min >60 9, 12 BUN/Creat 15.7 ratio 9 Sodium 146 mmol/L High 136-145 9 Potassium 4.1 mmol/L 3.5-5.1 9 Chloride 115 mmol/L High 98-107 9 Carbon Dioxide 25 mmol/L 21-32 9 Anion Gap 6 mEq/L Low 8-16 9 Calcium 7.6 mg/dL Low 8.5-10.1 9 Laboratory test finding 10/16/2017 Thyroxine (T4) 7.4 g/dL 4.7-13.3 9 Thyroid Stim Hormone 3.77 uIU/mL 0.30-4.20 9 CBC 10/15/2017 White Blood Count 7.1 K/uL 3.4-10.5 13 Red Blood Count 4.52 M/uL 4.20-5.80 13 Hemoglobin 13.5 gm/dL 12.8-17.0 13 Hematocrit 41.6 % 38.0-48.0 13 Mean Cell Volume 92.0 fl 80.0-96.0 13 Mean Corpuscular HGB 29.9 pg 27.0-33.0 13 Mean Corpuscular HGB Conc 32.5 g/dL 31.7-36.0 13 Platelet Count 250 K/uL 155-360 13 Red Cell Distri Width %CV 12.7 % 11.6-15.8 13 Mean Platelet Volume 11.0 fL High 6.6-10.6 13 Comprehensive Metabolic Panel 10/15/2017 Glucose 172 mg/dL High 74-106 13 BUN 11 mg/dL 7-18 13 Creatinine 0.9 mg/dL 0.6-1.3 13 Glom Filtration Rate, Estimate >60 mL/min >60 13 If >60 mL/min >60 13, 14 BUN/Creat 12.2 ratio 13 Sodium 143 mmol/L 136-145 13 Potassium 3.6 mmol/L 3.5-5.1 13 Chloride 110 mmol/L High 98-107 13 Carbon Dioxide 25 mmol/L 21-32 13 Anion Gap 8 mEq/L 8-16 13 Calcium 7.7 mg/dL Low 8.5-10.1 13 Total Protein 6.9 g/dL 6.4-8.2 13 Albumin 3.6 g/dL 3.4-5.0 13 Globulin 3.3 g/dL 1.9-4.3 13 Alb/Glob 1.1 ratio 13 Bilirubin,Total 0.7 mg/dL 0.2-1.0 13 Sgot/Ast 13 U/L Low 15-37 13, 15 SGPT/Alt 17 U/L 12-78 13 Alkaline Phosphatase 57 U/L 45-117 13 Laboratory test finding 10/15/2017 Salicylate < 1.7 mg/dL Low 2.8-20.0 13 , 16 Acetaminophen < 1.0 ug/mL Low 10.0-30.0 13, 17 Ethyl Alcohol < 3.0 mg/dL 13 Laboratory test finding 10/15/2017 Valproic Acid 32.5 ug/mL Low 50.0- 100.0 13 Topaz 1.65 mmol/L High 0.60-1.20 13, 18 Laboratory test 09/20/2017 HIV 1&2 AB Self Nonreactive Nonreactive 19, 20 finding Referred Laboratory test 09/07/2017 Phenytoin 0.6 ug/mL Low 10.0-20.0 21 finding (Dilantin) Valproic Acid 87.0 ug/mL 50.0-100.0 21 Drugs Of Abuse-Urine Screen 7 08/31/2017 Amphetamines (Urine) Negative 22 Barbiturates (Urine) Negative 22 Benzodiazepines (Urine) Negative 22 Cannabinoids (Urine) Negative 22 Cocaine Metabolite (Urine) Negative 22 Methadone (Urine) Negative 22 Opiates (Urine) Negative 22 Urine Cutoffs * 22, 23 Ua RFX Micro & Culture II 08/31/2017 Urine Color YELLOW Yellow 22 Urine Clarity CLEAR Clear 22 Urine Glucose - Dipstick NEGATIVE mg/dL Negative 22 Urine Bilirubin - Dipstick NEGATIVE Negative 22 Urine Ketone TRACE mg/dL High Negative 22 Urine Specific [place] 1.020 1.010-1.030 22 Urine Blood NEGATIVE Negative 22 Urine PH 7.0 6.5-7.5 22 Urine Protein - Dipstick NEGATIVE mg/dL Negative 22 Urine Urobilinogen - Dipstick 4.0 E.U./dL High 0.2-1.0 22 Urine Nitrite - Dipstick NEGATIVE Negative 22 Urine Leuk Esterase NEGATIVE Negative 22 Source: URINE, CLEAN CAT <SEE NOTE> 22, 24 Laboratory test finding 08/31/2017 Salicylate < 1.7 mg/dL Low 2.8-20.0 22 , 25 Topaz 0.59 mmol/L Low 0.60-1.20 22 CBS W/Automated Diff 08/31/2017 White Blood Count 6.9 K/uL 3.4-10.5 22 Red Blood Count 4.68 M/uL 4.20-5.80 22 Hemoglobin 14.3 gm/dL 12.8-17.0 22 Hematocrit 43.1 % 38.0-48.0 22 Mean Cell Volume 92.1 fl 80.0-96.0 22 Mean Corpuscular HGB 30.6 pg 27.0-33.0 22 Mean Corpuscular HGB Conc 33.2 g/dL 31.7-36.0 22 Platelet Count 245 K/uL 155-360 22 Red Cell Distri Width SD 41.5 fl 36-51 22 Red Cell Distri Width %CV 12.6 % 11.6-15.8 22 Mean Platelet Volume 11.0 fL High 6.6-10.6 22 Neut% 58.5 % 33.0-73.0 22 Lymph % 29.4 % 20.0-42.0 22 Foster % 10.7 % High 0.0-10.0 22 Eo% 1.0 % 0.0-6.6 22 Bas% 0.4 % 0.0-1.1 22 Neut# 4.04 K/uL 1.8-7.0 22 Lymph # 2.03 K/uL 1.0-4.0 22 Foster # 0.74 K/uL 0.0-0.8 22 Eos # 0.07 K/uL 0.0-0.5 22 Baso # 0.03 K/uL 0.0-0.1 22 CBS W/Automated Diff 08/29/2017 White Blood Count 7.2 K/uL 3.4-10.5 26 Red Blood Count 4.92 M/uL 4.20-5.80 26 Hemoglobin 15.0 gm/dL 12.8-17.0 26 Hematocrit 45.6 % 38.0-48.0 26 Mean Cell Volume 92.7 fl 80.0-96.0 26 Mean Corpuscular HGB 30.5 pg 27.0-33.0 26 Mean Corpuscular HGB Conc 32.9 g/dL 31.7-36.0 26 Platelet Count 240 K/uL 155-360 26 Red Cell Distri Width SD 43.0 fl 36-51 26 Red Cell Distri Width %CV 13.0 % 11.6-15.8 26 Mean Platelet Volume 11.2 fL High 6.6-10.6 26 Neut% 52.6 % 33.0-73.0 26 Lymph % 36.4 % 20.0-42.0 26 Foster % 8.8 % 0.0-10.0 26 Eo% 1.8 % 0.0-6.6 26 Bas% 0.4 % 0.0-1.1 26 Neut# 3.79 K/uL 1.8-7.0 26 Lymph # 2.62 K/uL 1.0-4.0 26 Foster # 0.63 K/uL 0.0-0.8 26 Eos # 0.13 K/uL 0.0-0.5 26 Baso # 0.03 K/uL 0.0-0.1 26 Laboratory test finding 08/29/2017 CK 102 U/L 39-308 26 Topaz 0.49 mmol/L Low 0.60-1.20 26 Drugs Of Abuse-Urine Screen 7 08/29/2017 Amphetamines (Urine) Negative 26 Barbiturates (Urine) Negative 26 Benzodiazepines (Urine) Negative 26 Cannabinoids (Urine) Negative 26 Cocaine Metabolite (Urine) Negative 26 Methadone (Urine) Negative 26 Opiates (Urine) Negative 26 Urine Cutoffs * 26, 27 Ua RFX Micro & Culture II 08/29/2017 Urine Color YELLOW Yellow 26 Urine Clarity CLEAR Clear 26 Urine Glucose - Dipstick NEGATIVE mg/dL Negative 26 Urine Bilirubin - Dipstick NEGATIVE Negative 26 Urine Ketone NEGATIVE mg/dL Negative 26 Urine Specific [place] 1.010 1.010-1.030 26 Urine Blood NEGATIVE Negative 26 Urine PH 7.0 6.5-7.5 26 Urine Protein - Dipstick NEGATIVE mg/dL Negative 26 Urine Urobilinogen - Dipstick 1.0 E.U./dL 0.2-1.0 26 Urine Nitrite - Dipstick NEGATIVE Negative 26 Urine Leuk Esterase NEGATIVE Negative 26 Source: URINE, CLEAN CAT <SEE NOTE> 26, 28 Laboratory test finding 08/06/2017 Valproic Acid 82.1 ug/mL 50.0-100.0 29 Ua RFX Micro & Culture II 07/14/2017 Urine Color YELLOW Yellow 30 Urine Clarity CLEAR Clear 30 Urine Glucose - Dipstick NEGATIVE mg/dL Negative 30 Urine Bilirubin - Dipstick NEGATIVE Negative 30 Urine Ketone NEGATIVE mg/dL Negative 30 Urine Specific [place] <=1.005 Low 1.010-1.030 30 Urine Blood NEGATIVE Negative 30 Urine PH 6.5 6.5-7.5 30 Urine Protein - Dipstick NEGATIVE mg/dL Negative 30 Urine Urobilinogen - Dipstick 0.2 E.U./dL 0.2-1.0 30 Urine Nitrite - Dipstick NEGATIVE Negative 30 Urine Leuk Esterase NEGATIVE Negative 30 Source: URINE, CLEAN CAT <SEE NOTE> 30, 31 Drugs Of Abuse-Urine Screen 7 07/14/2017 Amphetamines (Urine) Negative 30 Barbiturates (Urine) Negative 30 Benzodiazepines (Urine) Negative 30 Cannabinoids (Urine) Negative 30 Cocaine Metabolite (Urine) Negative 30 Methadone (Urine) Negative 30 Opiates (Urine) Negative 30 Urine Cutoffs * 30, 32 CBS W/Automated Diff 07/14/2017 White Blood Count 7.8 K/uL 3.4-10.5 30 Red Blood Count 4.43 M/uL 4.20-5.80 30 Hemoglobin 13.5 gm/dL 12.8-17.0 30 Hematocrit 40.7 % 38.0-48.0 30 Mean Cell Volume 91.9 fl 80.0-96.0 30 Mean Corpuscular HGB 30.5 pg 27.0-33.0 30 Mean Corpuscular HGB Conc 33.2 g/dL 31.7-36.0 30 Platelet Count 251 K/uL 155-360 30 Red Cell Distri Width SD 44.6 fl 36-51 30 Red Cell Distri Width %CV 13.4 % 11.6-15.8 30 Mean Platelet Volume 11.1 fL High 6.6-10.6 30 Neut% 50.5 % 33.0-73.0 30 Lymph % 37.7 % 20.0-42.0 30 Foster % 10.0 % 0.0-10.0 30 Eo% 1.5 % 0.0-6.6 30 Bas% 0.3 % 0.0-1.1 30 Neut# 3.93 K/uL 1.8-7.0 30 Lymph # 2.93 K/uL 1.0-4.0 30 Foster # 0.78 K/uL 0.0-0.8 30 Eos # 0.12 K/uL 0.0-0.5 30 Baso # 0.02 K/uL 0.0-0.1 30 Laboratory test finding 07/14/2017 Topaz < 0.20 mmol/L Low 0.60-1.20 30 CBS W/Automated Diff 06/25/2017 White Blood Count 9.5 K/uL 3.4-10.5 33 Red Blood Count 4.88 M/uL 4.20-5.80 33 Hemoglobin 14.6 gm/dL 12.8-17.0 33 Hematocrit 44.1 % 38.0-48.0 33 Mean Cell Volume 90.4 fl 80.0-96.0 33 Mean Corpuscular HGB 29.9 pg 27.0-33.0 33 Mean Corpuscular HGB Conc 33.1 g/dL 31.7-36.0 33 Platelet Count 259 K/uL 155-360 33 Red Cell Distri Width SD 43.2 fl 36-51 33 Red Cell Distri Width %CV 13.3 % 11.6-15.8 33 Mean Platelet Volume 10.8 fL High 6.6-10.6 33 Neut% 64.8 % 33.0-73.0 33 Lymph % 26.6 % 20.0-42.0 33 Foster % 7.5 % 0.0-10.0 33 Eo% 0.7 % 0.0-6.6 33 Bas% 0.4 % 0.0-1.1 33 Neut# 6.14 K/uL 1.8-7.0 33 Lymph # 2.52 K/uL 1.0-4.0 33 Foster # 0.71 K/uL 0.0-0.8 33 Eos # 0.07 K/uL 0.0-0.5 33 Baso # 0.04 K/uL 0.0-0.1 33 Ua RFX Micro & Culture II 06/25/2017 Urine Color YELLOW Yellow 33 Urine Clarity CLEAR Clear 33 Urine Glucose - Dipstick NEGATIVE mg/dL Negative 33 Urine Bilirubin - Dipstick NEGATIVE Negative 33 Urine Ketone NEGATIVE mg/dL Negative 33 Urine Specific [place] 1.025 1.010-1.030 33 Urine Blood NEGATIVE Negative 33 Urine PH 6.0 Low 6.5-7.5 33 Urine Protein - Dipstick NEGATIVE mg/dL Negative 33 Urine Urobilinogen - Dipstick 0.2 E.U./dL 0.2-1.0 33 Urine Nitrite - Dipstick NEGATIVE Negative 33 Urine Leuk Esterase NEGATIVE Negative 33 Source: URINE, CLEAN CAT <SEE NOTE> 33, 34 Laboratory test 06/25/2017 Salicylate < 1.7 mg/dL Low 2.8-20.0 33, 35 finding Drugs Of Abuse-Urine 06/25/2017 Amphetamines (Urine) Negative 33 Screen 7 Barbiturates (Urine) POSITIVE 33 Benzodiazepines (Urine) Negative 33 Cannabinoids (Urine) Negative 33 Cocaine Metabolite (Urine) Negative 33 Methadone (Urine) Negative 33 Opiates (Urine) Negative 33 Urine Cutoffs * 33, 36 Laboratory test finding 06/25/2017 Valproic Acid 44.9 ug/mL Low 50.0- 100.0 33 Topaz 0.37 mmol/L Low 0.60-1.20 33 Laboratory test 06/13/2017 Throat Strep NO BETA STREPTOC 37, 38 finding Screen <SEE NOTE> CBS W/Automated Diff 02/18/2017 White Blood Count 7.6 K/uL 3.4-10.5 39 Red Blood Count 4.79 M/uL 4.20-5.80 39 Hemoglobin 14.0 gm/dL 12.8-17.0 39 Hematocrit 42.1 % 38.0-48.0 39 Mean Cell Volume 87.9 fl 80.0-96.0 39 Mean Corpuscular HGB 29.2 pg 27.0-33.0 39 Mean Corpuscular HGB Conc 33.3 g/dL 31.7-36.0 39 Platelet Count 219 K/uL 150-400 39 Red Cell Distri Width SD 44.0 fl 36-51 39 Red Cell Distri Width %CV 14.1 % 11.6-15.8 39 Mean Platelet Volume 11.7 fL High 6.6-10.6 39 Neut% 51.6 % 33.0-73.0 39 Lymph % 32.9 % 20.0-42.0 39 Foster % 12.4 % High 0.0-10.0 39 Eo% 2.4 % 0.0-6.6 39 Bas% 0.7 % 0.0-1.1 39 Neut# 3.92 K/uL 1.8-7.0 39 Lymph # 2.50 K/uL 1.0-4.0 39 Foster # 0.94 K/uL High 0.0-0.8 39 Eos # 0.18 K/uL 0.0-0.5 39 Baso # 0.05 K/uL 0.0-0.1 39 Comprehensive Metabolic Panel 02/18/2017 Glucose 101 mg/dL 74-106 39 BUN 8 mg/dL 7-18 39 Creatinine 0.7 mg/dL 0.6-1.3 39 Glom Filtration Rate, Estimate >60 mL/min >60 39 If >60 mL/min >60 39, 40 BUN/Creat 11.4 ratio 39 Sodium 141 mmol/L 136-145 39 Potassium 4.3 mmol/L 3.5-5.1 39 Chloride 107 mmol/L 98-107 39 Carbon Dioxide 28 mmol/L 21-32 39 Anion Gap 6 mEq/L Low 8-16 39 Calcium 8.6 mg/dL 8.5-10.1 39 Total Protein 7.0 g/dL 6.4-8.2 39 Albumin 3.5 g/dL 3.4-5.0 39 Globulin 3.5 g/dL 1.9-4.3 39 Alb/Glob 1.0 ratio 39 Bilirubin,Total 0.2 mg/dL 0.2-1.0 39 Sgot/Ast 13 U/L Low 15-37 39, 41 SGPT/Alt 22 U/L 12-78 39 Alkaline Phosphatase 82 U/L 45-117 39 Laboratory test finding 02/18/2017 CK 76 U/L 39-308 39 Troponin-I < 0.015 ng/mL 39, 42 Valproic Acid 34.2 ug/mL Low 50.0-100.0 39 Laboratory test 11/30/2016 Thyroid Stim Hormone 1.38 uIU/mL 0.30-4.20 43 finding Laboratory test 10/28/2016 Thyroid Stim Hormone 2.15 uIU/mL 0.30-4.20 44 finding LDL Cholesterol 10/28/2016 Cholesterol 149 mg/dL <200 44, 45 Profile Triglycerides 72 mg/dL <150 44, 46 HDL Cholesterol 36 mg/dL Low >40 44, 47 LDL-Cholesterol 99 mg/dL < 100 44, 48 Rapid Influenza A & B 05/29/2016 Influenza A Molecular NEGATIVE Negative 49 Molecular Influenza B Molecular NEGATIVE Negative Laboratory test finding 10/31/2015 Ammonia 55 umol/L High 11-32 Valproic Acid 59.2 ug/mL 50.0-100.0 Laboratory test finding 10/31/2015 [place]az 0.31 mmol/L Low 0.60-1.20 Drugs Of Abuse-Urine 10/27/2015 Amphetamines (Urine) Negative Screen 7 Barbiturates (Urine) Negative Benzodiazepines (Urine) Negative Cannabinoids (Urine) Negative Cocaine Metabolite (Urine) Negative Methadone (Urine) Negative Opiates (Urine) Negative Urine Cutoffs * 50 Urine Screen 10/27/2015 Urine Color YELLOW Yellow Urine Clarity CLEAR Clear Urine Glucose - Dipstick NEGATIVE mg/dL Negative Urine Bilirubin - Dipstick NEGATIVE Negative Urine Ketone NEGATIVE mg/dL Negative Urine Specific [place] >=1.030 1.010-1.030 Urine Blood NEGATIVE Negative Urine PH 5.5 Low 6.5-7.5 Urine Protein - Dipstick TRACE mg/dL Negative Urine Urobilinogen - Dipstick 0.2 E.U./dL 0.2-1.0 Urine Nitrite - Dipstick NEGATIVE Negative Urine Leuk Esterase NEGATIVE Negative Laboratory test finding 10/27/2015 Aot Request Test(s) added 51 Comprehensive Metabolic Panel 10/26/2015 Glucose 129 mg/dL High 74-106 BUN 15 mg/dL 7-18 Creatinine 1.0 mg/dL 0.6-1.3 Glom Filtration Rate, Estimate >60 mL/min >60 If >60 mL/min >60 52 BUN/Creat 15.0 ratio Sodium 141 mmol/L 136-145 Potassium 3.9 mmol/L 3.5-5.1 Chloride 107 mmol/L 98-107 Carbon Dioxide 27 mmol/L 21-32 Anion Gap 7 mEq/L Low 8-16 Calcium 8.4 mg/dL Low 8.5-10.1 Total Protein 7.5 g/dL 6.4-8.2 Albumin 4.1 g/dL 3.4-5.0 Globulin 3.4 g/dL 1.9-4.3 Alb/Glob 1.2 ratio Bilirubin,Total 0.6 mg/dL 0.2-1.0 Sgot/Ast 8 U/L Low 15-37 53 SGPT/Alt 17 U/L 12-78 Alkaline Phosphatase 63 [...] High 1.8-7.0 Lymph # 2.18 K/uL 1.8-7.0 Foster # 0.58 K/uL 0.0-0.8 Eos # 0.05 [...] NORMAL Poikilocytosis 0-1+ Anisocytosis 0-1+ Laboratory test finding 10/26/2015 [place] 0.32 mmol/L Low 0.60-1.20 Valproic Acid 31.7 ug/mL Low 50.0-100.0 Ziprasidone (Geodon,Zeldox) 3.3 ng/mL . 54 LDL Cholesterol Profile 10/26/2015 Cholesterol 125 mg/dL <200 55 Triglycerides 60 mg/dL <150 56 HDL Cholesterol 40 mg/dL >40 57 LDL-Cholesterol 73 mg/dL < 100 58 Laboratory test 10/26/2015 Hepatitis B Surface Nonreactive 59 finding Antigen Nonreactive Hepatitis B Surface 10/26/2015 HBSAb Interpretation Nonreactive Antibody Nonreactive Hepatitis B Surface Antibody < 3.1 mIU/mL <3.1 60 Hepatitis C Antibody 10/26/2015 Hepatitis C Antibody Nonreactive Nonreactive Signal/Cutoff ratio < 0.02 <0.80 61 Laboratory test finding 10/26/2015 Rapid Abdet See Note 62 Drugs Of Abuse-Urine Screen 7 09/10/2015 Amphetamines (Urine) Negative Barbiturates (Urine) Negative Benzodiazepines (Urine) Negative Cannabinoids (Urine) Negative Cocaine Metabolite (Urine) Negative Methadone (Urine) Negative Opiates (Urine) Negative Urine Cutoffs * 63 Comprehensive Metabolic Panel 06/02/2015 Glucose 122 mg/dL High 74-106 BUN 19 mg/dL High 7-18 Creatinine 0.9 mg/dL 0.6-1.3 Glom Filtration Rate, Estimate >60 mL/min >60 If >60 mL/min >60 64 BUN/Creat 21.1 ratio Sodium 140 mmol/L 136-145 Potassium 3.6 mmol/L 3.5-5.1 Chloride 107 mmol/L 98-107 Carbon Dioxide 27 mmol/L 21-32 Anion Gap 6 mEq/L Low 8-16 Calcium 8.2 mg/dL Low 8.5-10.1 Total Protein 7.0 g/dL 6.4-8.2 Albumin 3.9 g/dL 3.4-5.0 Globulin 3.1 g/dL 1.9-4.3 Alb/Glob 1.3 ratio Bilirubin,Total 0.6 mg/dL 0.2-1.0 Sgot/Ast 12 U/L Low 15-37 65 SGPT/Alt 31 U/L 12-78 Alkaline Phosphatase 67 U/L 45-117 Laboratory test finding 06/02/2015 Thyroid Stim Hormone 1.56 uIU/mL 0.36- 3.74 Valproic Acid < 3.0 ug/mL Low 50.0-100.0 66 Acetaminophen < 2.0 ug/mL Low 10.0-30.0 67 Salicylate < 1.7 mg/dL Low 2.8-20.0 68 Ethyl Alcohol < 3.0 mg/dL CBC W/Automated [...] High 1.8-7.0 Lymph # 2.12 K/uL 1.8-7.0 Foster # 0.89 K/uL High 0.0-0.8 Eos # 0.08 K/uL 0.0-0.5 Baso # 0.03 K/uL Low 0.1-0.2 Laboratory test finding 06/02/2015 Slide Review DIFF ORDERED Differential-WBC Confirm 06/02/2015 Total Cells Counted 100 #CELLS Neutrophils% 82 % High 33-73 Lymph% 13 % Low 17-56 Monocyte% 5 % 0-10 Platelet Estimate NORMAL Anisocytosis 0-1+ Laboratory test 06/02/2015 [place] < 0.20 mmol/L Low 0.60-1.20 69 finding Laboratory test 06/02/2015 Valproic Acid See Note 70 finding Drugs Of Abuse-Urine 06/02/2015 Amphetamines (Urine) Negative Screen 7 Barbiturates (Urine) Negative Benzodiazepines (Urine) Negative Cannabinoids (Urine) Negative Cocaine Metabolite (Urine) Negative Methadone (Urine) Negative Opiates (Urine) Negative Urine Cutoffs * 71 Urine Screen 06/02/2015 Urine Color YELLOW Yellow Urine Clarity CLEAR Clear Urine Glucose - Dipstick NEGATIVE mg/dL Negative Urine Bilirubin - Dipstick NEGATIVE Negative Urine Ketone NEGATIVE mg/dL Negative Urine Specific [place] >=1.030 1.010-1.030 Urine Blood TRACE Negative Urine PH 5.5 Low 6.5-7.5 Urine Protein - Dipstick NEGATIVE mg/dL Negative Urine Urobilinogen - Dipstick 0.2 E.U./dL 0.2-1.0 Urine Nitrite - Dipstick NEGATIVE Negative Urine Leuk Esterase NEGATIVE Negative Laboratory test finding 05/05/2015 [place] 0.35 mmol/L Low 0.60-1.20 Comprehensive Metabolic Panel 05/05/2015 Glucose 89 mg/dL 74-106 BUN 14 mg/dL 7-18 Creatinine 0.9 mg/dL 0.6-1.3 Glom Filtration Rate, Estimate >60 mL/min >60 If >60 mL/min >60 72 BUN/Creat 15.5 ratio Sodium 140 mmol/L 136-145 Potassium 3.9 mmol/L 3.5-5.1 Chloride 102 mmol/L 98-107 Carbon Dioxide 31 mmol/L 21-32 Anion Gap 7 mEq/L Low 8-16 Calcium 8.3 mg/dL Low 8.5-10.1 Total Protein 7.5 g/dL 6.4-8.2 Albumin 4.0 g/dL 3.4-5.0 Globulin 3.5 g/dL 1.9-4.3 Alb/Glob 1.1 ratio Bilirubin,Total 0.6 mg/dL 0.2-1.0 Sgot/Ast 14 U/L Low 15-37 73 SGPT/Alt 39 U/L 12-78 Alkaline Phosphatase 67 U/L 45-117 Laboratory test finding 04/08/2015 Throat Culture Complete See Note 74 CBS W/Automated Diff 04/08/2015 White Blood Count [...] % 33.0-73.0 Lymph % 28.8 % 17.0-56.0 Foster % 7.7 % 0.0-10.0 Eo% 0.9 % 0.0-5.0 Bas% 0.3 % 0.1-1.0 Neut# 6.39 K/uL 1.8-7.0 Lymph # 2.96 K/uL 1.8-7.0 Foster # 0.79 K/uL 0.0-0.8 Eos # 0.09 K/uL 0.0-0.5 Baso # 0.03 K/uL Low 0.1-0.2 Laboratory test finding 04/08/2015 Magnesium 2.7 mg/dL High 1.8-2.4 Comprehensive Metabolic Panel 04/08/2015 Glucose 107 mg/dL High 74-106 BUN 9 mg/dL 7-18 Creatinine 0.9 mg/dL 0.6-1.3 Glom Filtration Rate, Estimate >60 mL/min >60 If >60 mL/min >60 75 BUN/Creat 10.0 ratio Sodium 140 mmol/L 136-145 [...] Urine Ketone NEGATIVE mg/dL Negative Urine Specific [place] 1.025 1.010-1.030 Urine Blood NEGATIVE Negative Urine [...] 78 mg/dL 76-115 If >60 mL/min >60 76 Potassium 4.2 mmol/L 3.5-5.1 SGPT/Alt 28 U/L Low 30-65 Sgot/Ast 13 U/L Low 16-40 Sodium 137 mmol/L 136-145 Total Protein 7.9 g/dL 6.3-8.0 Laboratory test finding 08/27/2013 [place] < 0.20 mmol/L Low 0.60-1.20 1 DAWN TO GROIN 2 Note: Persistent reduction for 3 months or more in an eGFR <60 mL/min/1.73 m2 defines CKD. Patients with eGFR values >/=60 mL/min/1.73 m2 may also have CKD if evidence of persistent proteinuria is present. The original MDRD equation for estimated GFR is not valid for patients less than 18 years of age. Additional information may be found at [email or web address]. 3 Values below the stated reference ranges of AST and ALT can be seen in normal populations. Clinical correlation is suggested. 4 941 5 Tests: lithium Instructions: 6 THERAPEUTIC RANGE: 15-30 mg/dL POTENTIAL TOXICITY VARIES WITH TIME FROM INGESTION. PLEASE CONSULT APPROPRIATE NOMOGRAM. 7 Note: Persistent reduction for 3 months or more in an eGFR <60 mL/min/1.73 m2 defines CKD. Patients with eGFR values >/=60 mL/min/1.73 m2 may also have CKD if evidence of persistent proteinuria is present. The original MDRD equation for estimated GFR is not valid for patients less than 18 years of age. Additional information may be found at [email or web address]. 8 Values below the stated reference ranges of AST and ALT can be seen in normal populations. Clinical correlation is suggested. 9 LITHIUM TOXICITY, ASSAULT BEHAV 10 Note: Persistent reduction for 3 months or more in an eGFR <60 mL/min/1.73 m2 defines CKD. Patients with eGFR values >/=60 mL/min/1.73 m2 may also have CKD if evidence of persistent proteinuria is present. The original MDRD equation for estimated GFR is not valid for patients less than 18 years of age. Additional information may be found at [email or web address]. 11 URINE SPECIMENS ARE SCREENED AT THE [...] SPECIMENS ARE HELD FOR 72 HOURS. 12 Note: Persistent reduction for 3 months or more in an eGFR <60 mL/min/1.73 m2 defines CKD. Patients with eGFR values >/=60 mL/min/1.73 m2 may also have CKD if evidence of persistent proteinuria is present. The original MDRD equation for estimated GFR is not valid for patients less than 18 years of age. Additional information may be found at [email or web address]. 13 EVAL 14 Note: Persistent reduction for 3 months or more in an eGFR <60 mL/min/1.73 m2 defines CKD. Patients with eGFR values >/=60 mL/min/1.73 m2 may also have CKD if evidence of persistent proteinuria is present. The original MDRD equation for estimated GFR is not valid for patients less than 18 years of age. Additional information may be found at [email or web address]. 15 Values below the stated reference ranges of AST and ALT can be seen in normal populations. Clinical correlation is suggested. 16 THERAPEUTIC RANGE: 15-30 mg/dL POTENTIAL TOXICITY VARIES WITH TIME FROM INGESTION. PLEASE CONSULT APPROPRIATE NOMOGRAM. 17 Acetaminophen concentration >150 ug/mL at four hours after ingestion and 50.0 ug/mL at twelve hours after ingestion are often associated with toxic reactions. 18 CHECKED CALLED MICHAEL GOLDBERG HIGH LITHIUM AT 0057 10/16/17 by [facility] 19 [id number] 20 It is recognized that currently available assays for the detection of antibodies to HIV-1 and/or HIV-2 may not detect all infected individuals. HIV antibodies may be undetectable in some stages of the infection and in some clinical conditions. The performance of this assay has not been established for populations of infants or children. Assayed by Chemiluminescence Microparticle Immunoassay on the Siemens Advia Centaur CP. Values obtained with different methods or kits cannot be used interchangeably.The diagnostic specificity of the ADVIA Centaur 1/O/2 Enhanced assay in the low risk population was 99.90% (6052/6058) with a 95% confidence interval of 99.78 to 99.96%. 21 G40.909 22 MENTAL HEALTH EVAL 23 URINE SPECIMENS ARE SCREENED AT THE LISTED CUTOFFS DRUG CLASS INITIAL TEST LEVEL Amphetamines 1000 ng/mL Barbiturates 200 ng/mL Benzodiazepines 200 ng/mL Cannabinoids 50 ng/mL Cocaine Metabolite 300 ng/mL Methadone 300 ng/mL Opiates 300 ng/mL Any PRESUMPTIVE POSITIVE findings are UNCONFIRMED. Confirmatory testing is suggested if findings are unexpected. Please contact laboratory if confirmatory testing is desired. SPECIMENS ARE HELD FOR 72 HOURS. 24 URINE, CLEAN CATCH 25 THERAPEUTIC RANGE: 15-30 mg/dL POTENTIAL TOXICITY VARIES WITH TIME FROM INGESTION. PLEASE CONSULT APPROPRIATE NOMOGRAM. 26 HAD 3 SEIZURES 27 URINE SPECIMENS ARE SCREENED AT THE LISTED CUTOFFS DRUG CLASS INITIAL TEST LEVEL Amphetamines 1000 ng/mL Barbiturates 200 ng/mL Benzodiazepines 200 ng/mL Cannabinoids 50 ng/mL Cocaine Metabolite 300 ng/mL Methadone 300 ng/mL Opiates 300 ng/mL Any PRESUMPTIVE POSITIVE findings are UNCONFIRMED. Confirmatory testing is suggested if findings are unexpected. Please contact laboratory if confirmatory testing is desired. SPECIMENS ARE HELD FOR 72 HOURS. 28 URINE, CLEAN CATCH 29 seizure/"twitching" 30 PAIN IN STOMACH, FAINTED, SAID HAD SEIZURE 31 URINE, CLEAN CATCH 32 URINE SPECIMENS ARE SCREENED AT THE LISTED CUTOFFS DRUG CLASS INITIAL TEST LEVEL Amphetamines 1000 ng/mL Barbiturates 200 ng/mL Benzodiazepines 200 ng/mL Cannabinoids 50 ng/mL Cocaine Metabolite 300 ng/mL Methadone 300 ng/mL Opiates 300 ng/mL Any PRESUMPTIVE POSITIVE findings are UNCONFIRMED. Confirmatory testing is suggested if findings are unexpected. Please contact laboratory if confirmatory testing is desired. SPECIMENS ARE HELD FOR 72 HOURS. 33 EVAL 34 URINE, CLEAN CATCH 35 THERAPEUTIC RANGE: 15-30 mg/dL POTENTIAL TOXICITY VARIES WITH TIME FROM INGESTION. PLEASE CONSULT APPROPRIATE NOMOGRAM. 36 URINE SPECIMENS ARE SCREENED AT THE LISTED CUTOFFS DRUG CLASS INITIAL TEST LEVEL Amphetamines 1000 ng/mL Barbiturates 200 ng/mL Benzodiazepines 200 ng/mL Cannabinoids 50 ng/mL Cocaine Metabolite 300 ng/mL Methadone 300 ng/mL Opiates 300 ng/mL Any PRESUMPTIVE POSITIVE findings are UNCONFIRMED. Confirmatory testing is suggested if findings are unexpected. Please contact laboratory if confirmatory testing is desired. SPECIMENS ARE HELD FOR 72 HOURS. 37 STOMACH PAIN,LIGHTHEADED 38 NO BETA STREPTOCOCCI ISOLATED 39 SEIZURE EARLIER 40 Note: Persistent reduction for 3 months or more in an eGFR <60 mL/min/1.73 m2 defines CKD. Patients with eGFR values >/=60 mL/min/1.73 m2 may also have CKD if evidence of persistent proteinuria is present. The original MDRD equation for estimated GFR is not valid for patients less than 18 years of age. Additional information may be found at www.[email or web address]. 41 Values below the stated reference ranges of AST and ALT can be seen in normal populations. Clinical correlation is suggested. 42 0.0 - 0.045 ng/mL: Normal 0.046 - 0.5 ng/mL: Suggestive 0.6 - 1.5 ng/mL: Consistent 43 E03.9 44 E03.9 Z13.220 45 Reference Guidelines*: Desirable: ........... < 200 mg/dL Borderline High: ..... 200-239 mg/dL High: ................ >=240 mg/dL * The National Cholesterol Education Program (NCEP) 46 Reference Guidelines*: Normal: ............. < 150 mg/dL Borderline High: .... 150-199 mg/dL High: ............... 200-499 mg/dL Very High: .......... > 500 mg/dL * Source: National Cholesterol Education Program (NCEP) 47 Reference Guidelines*: Low HDL: ..... < 40 mg/dL Normal: ..... 40-60 mg/dL Desirable: ... > 60 mg/dL *The National Cholesterol Education Program(NCEP) 48 Reference Guidelines*: Optimal:........... <100 mg/dL Near Optimal....... 100-129 mg/dL Borderline High.... 130-159 mg/dL High............... 160-189 mg/dL Very High.......... >=190 mg/dL * Source: National Cholesterol Education Program (NCEP) 49 Clinical Engineering Director: [id number] JORGE GRAYSON 50 URINE SPECIMENS ARE SCREENED AT THE [...] SPECIMENS ARE HELD FOR 72 HOURS. 51 Tests: Rapid HIV ab, Hep C AB, Hep BsAB, Hep B S AG Instructions: 10/27/15 0732: AOT Request previously reported as: Unable to add tests Tests: Rapid HIV ab, Hep C AB, Hep BsAB, Hep B S AG Instructions: Amended result called to: - 10/27/15 at 0732 52 Note: Persistent reduction for 3 months or more in an eGFR <60 mL/min/1.73 m2 defines CKD. Patients with eGFR values >/=60 mL/min/1.73 m2 may also have CKD if evidence of persistent proteinuria is present. The original MDRD equation for estimated GFR is not valid for patients less than 18 years of age. Additional information may be found at www.[email or web address]. 53 Values below the stated reference ranges of AST and ALT can be seen in normal populations. Clinical correlation is suggested. 54 Reporting Limit: 2.0 ng/mL Synonym(s): Zeldox(R); Geodon(R) [...] Liquid Chromatography/ TandemMass Spectrometry (LC-MS/MS) Performed at: [address] [id number] Wine Consultant: Juan Jose Jean PhD, Phone: [phone] 55 Reference Guidelines*: Desirable: ........... < 200 mg/dL Borderline High: ..... 200-239 mg/dL High: ................ >=240 mg/dL * The National Cholesterol Education Program (NCEP) 56 Reference Guidelines*: Normal: ............. < 150 mg/dL Borderline High: .... 150-199 mg/dL High: ............... 200-499 mg/dL Very High: .......... > 500 mg/dL * Source: National Cholesterol Education Program (NCEP) 57 Reference Guidelines*: Low HDL: ..... < 40 mg/dL Normal: ..... 40-60 mg/dL Desirable: ... > 60 mg/dL *The National Cholesterol Education Program(NCEP) 58 Reference Guidelines*: Optimal:........... <100 mg/dL Near Optimal....... 100-129 mg/dL Borderline High.... 130-159 mg/dL High............... 160-189 mg/dL Very High.......... >=190 mg/dL * Source: National Cholesterol Education Program (NCEP) 59 HBsAg not detected; does not exclude the possibility of exposure to or early acute infections with HBV. 60 Values >10 mIU/ML considered IMMUNE 61 Antibodies to HCV not detected; does not exclude early acute HCV infection. 62 No reportable results 63 URINE SPECIMENS ARE SCREENED AT THE LISTED CUTOFFS DRUG CLASS INITIAL TEST LEVEL Amphetamines 1000 ng/mL Barbiturates 200 ng/mL Benzodiazepines 200 ng/mL Cannabinoids 50 ng/mL Cocaine Metabolite 300 ng/mL Methadone 300 ng/mL Opiates 300 ng/mL Any POSITIVE findings are UNCONFIRMED. Confirmatory testing is suggested if findings are unexpected. Please contact laboratory if confirmatory testing is desired. SPECIMENS ARE HELD FOR 72 HOURS. 64 Note: Persistent reduction for 3 months or more in an eGFR <60 mL/min/1.73 m2 defines CKD. Patients with eGFR values >/=60 mL/min/1.73 m2 may also have CKD if evidence of persistent proteinuria is present. The original MDRD equation for estimated GFR is not valid for patients less than 18 years of age. Additional information may be found at www.[email or web address]. 65 Values below the stated reference ranges of AST and ALT can be seen in normal populations. Clinical correlation is suggested. 66 Result confirmed by repeat analysis. 67 Acetaminophen concentration >150 ug/mL at four hours after ingestion and 50.0 ug/mL at twelve hours after ingestion are often associated with toxic reactions. 68 THERAPEUTIC RANGE: 15-30 mg/dL POTENTIAL TOXICITY VARIES WITH TIME FROM INGESTION. PLEASE CONSULT APPROPRIATE NOMOGRAM. 69 Result confirmed by repeat analysis. 70 ADDED 71 URINE SPECIMENS ARE SCREENED AT THE LISTED CUTOFFS DRUG CLASS INITIAL TEST LEVEL Amphetamines 1000 ng/mL Barbiturates 200 ng/mL Benzodiazepines 200 ng/mL Cannabinoids 50 ng/mL Cocaine Metabolite 300 ng/mL Methadone 300 ng/mL Opiates 300 ng/mL Any POSITIVE findings are UNCONFIRMED. Confirmatory testing is suggested if findings are unexpected. Please contact laboratory if confirmatory testing is desired. SPECIMENS ARE HELD FOR 72 HOURS. 72 Note: Persistent reduction for 3 months or more in an eGFR <60 mL/min/1.73 m2 defines CKD. Patients with eGFR values >/=60 mL/min/1.73 m2 may also have CKD if evidence of persistent proteinuria is present. The original MDRD equation for estimated GFR is not valid for patients less than 18 years of age. Additional information may be found at www.[email or web address]. 73 Values below the stated reference ranges of AST and ALT can be seen in normal populations. Clinical correlation is suggested. 74 NORMAL THROAT MARITO 75 Note: Persistent reduction for 3 months or more in an eGFR <60 mL/min/1.73 m2 defines CKD. Patients with eGFR values >/=60 mL/min/1.73 m2 may also have CKD if evidence of persistent proteinuria is present. The original MDRD equation for estimated GFR is not valid for patients less than 18 years of age. Additional information may be found at [email or web address]. 76 Note: Persistent reduction for 3 months or [...] [email or web address]. Procedures Date CPT Code Description Status 10/26/2017 90229 Application of Cast short arm Completed 10/28/2015 05227 Psychiatric Diag Eval W/Medical Service Completed 04/17/2012 47163 FX Metatarsal-Closed W/O Completed Encounters Type Date Location Provider CPT E/M Dx Office Visit 10/26/2017 9:30a Orthopaedic Office [place] [place] 07160 S63.502A Office Visit 09/07/2017 1:00p [place] [address] G40.909 F31.9 Office Visit 01/27/2017 10:45a [place] [address] S16.1xxD Office Visit 11/22/2016 10:45a Family Medicine Elmer Portillo [address] H66.92 [employer] ENGINEER Office Visit 11/11/2016 3:15p [place] [address] H66.92 Office Visit 10/28/2016 10:45a [place] [address] Z00.01 G40.909 F31.9 F79 E03.9 Z13.220 Office Visit 09/10/2016 11:30a Family Medicine JOSEPH Ceja 01016 G40.909 Office Visit 09/07/2016 1:30p Family Medicine Marlen Cox PNP-BC, 37765 G40.909 [employer]IC [employer] SAF[employer]Y ENGINEER, Ibclc K02.9 Office Visit 07/10/2015 2:15p [place] [address] S60.059A Office Visit 06/25/2015 2:30p [place] [address] B86 F31.9 R13.10 Office Visit 06/03/2015 1:30p Family Medicine JOSEPH Ceja 34997 R13.10 J45.30 R05 R21 F31.9 Office Visit 05/27/2015 2:00p Family Medicine Tana Shultz M.D. 27415 R21 Office Visit 05/05/2015 1:00p [place] [address] Z00.00 F31.9 F84.9 J45.20 Z23 Office Visit 03/14/2015 11:45a Family Medicine Lucinda Cloud M.D. 52524 R05 Office Visit 02/24/2015 3:30p Family Medicine Elmer Palominogarcia, [facility] 40604 J20.9 R05 Plan of Care 10/26/2017 - Miryam Angulo, [id number] Unspecified sprain of left wrist, initial encounterComments:At this point I discussed treatment options with the patient and his mother. I explained that to diagnose a TFCC injury and evaluate the DRUJ would be done by an MRI arthrogram. The mother reports atthis time she would like to avoid that if possible. I recommended conservative treatment with casting. She does wish to proceed with casting. Patient was placed in a short arm cast. He'll return for repeat exam with cast off in 3-4 weeks.AllFollow up:3 wk
[2017-11-19 18:46] VITALS: BP 126/69
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
== END 2017-11-19 19:31 | disposition home or self-care (01) ==
LOC: UCCORT 18:27
DX: T21.26XA Burn of second degree of male genital region, initial encounter (principal); T31.0 Burns involving less than 10% of body surface; T79.2XXA Traumatic secondary and recurrent hemorrhage and seroma, initial encounter; X12.XXXA Contact with other hot fluids, initial encounter; Y93.89 Activity, other specified; Y92.000 Kitchen of unspecified non-institutional (private) residence as the place of occurrence of the external cause; Z88.1 Allergy status to other antibiotic agents; Z88.8 Allergy status to other drugs, medicaments and biological substances; Z87.891 Personal history of nicotine dependence
CPT/HCPCS: 16020; 99211; G0463

== ENCOUNTER 2017-12-01 19:20 | Emergency (ER) | payer MEDICARE, MEDICAID ==
--- OUTSIDE RECORDS SUMMARY | 2017-12-01 19:31 | XMS REPORT ---
:1990 External Reference #:[id number] Author Organization [facility] Address [address], [address] [place] [address] Phone [phone] Care Team Providers Name Role Phone Karla Harmon MD Care Team Information Pierce And Shave Press Operator Unavailable Karla Harmon MD Primary Care Physician Unavailable Payers Type Date Identification Numbers Payment Provider Subscriber Commercial Policy Number: [id number] [employer] Doug Dawn PayID: [id number] [address] [place] [address] Medicaid Policy Number: [id number] Medicaid Doug Dawn Group Name: 1 1 [address] PayID: [id number] [place] [address] Medigap Part B PayID: [id number] [facility] Doug Dawn Psych[facility] [address] [place] [address] Commercial Expires: 2015 Policy Number: [place] Medicaid Doug Dawn [id number] PayID: [id number] [address] [place] [address] Problems Date Description Provider Status Onset: 08/27/2013 [...] Active Onset: 09/07/2016 Epilepsy Marlen Cox, PNP-BC, ROLLER BEARING INSPECTOR, Active Ibclc Onset: 10/28/2016 Mental retardation Karla [...] Comments Lives With Alone Occupation Currently Working [email or web address] job Work Status Currently Working Hand Dominance Right-handed Cigarette Use Never Smoked Cigarettes ETOH Use Denies alcohol use Smoking Patient has never smoked Recreational Drug Use Never Used Drugs Daily Caffeine Consumes on average 1 pot of regular coffee per day Talking Books Library Clerk Name Mother Talking Books Library Clerk Name prev., was adopted at 6 yrs and raised by adopted mo. who accompanies Allergies, Adverse Reactions, Alerts Date Description Reaction Status Severity Comments 11/28/2012 Risperidone active 06/25/2015 Montelukast active 01/27/2017 Benadryl active 01/27/2017 Clindamycin active 01/27/2017 Wellbutrin active 04/17/2012 NKDA inactive Medications Medication Date Status Form Strength Qnty SIG Indications Ordering Provider Lowrey 09/07 Active Tablets 450mg 60tab 1 cap by Karla Morley ER s renae Harmon MD twice a day Depakote ER 09/07 Active Tablets 500mg 120ta 2 Tab In ER 24HR bs Am And 2 MD Faustino Tabs AT Bedtime. Note New Dose Ibuprofen 01/27 Active Tablets 600mg take one tablet by MD Faustino mouth 3X/Day with food or snack as needed for pain Cyclobenzaprine 01/27 Active Tablets 10mg 60tab 1 by Karla HOGAN s mouth MD Faustino three times a day as needed muscle spasms ER Doc Ondansetron 11/22 Active Tablets 4mg 30tab 1 by Elmer Trent Dispers s mouth Clune, ROLLER BEARING INSPECTOR every 4 hour as needed Levothyroxine 10/03 [...] Faustino every day Neomycin/Polymyx 11/22 Hx Solution [id number] 10ml 4 drops Elmer in/Hydrocortison /2016 - to RADHA PortilloP e (Otic) - bilateral 11/27 ear canal four times a day for 5 days Amoxicillin 11/11 Hx Tablets 875mg 20tab 1 by H66.92 s mouth MD Faustino - twice a Lowrey 11/23 Hx Capsules 600mg 180ca 1 by ps mouth MD Faustino - twice a Depakote 11/23 Hx Tablets 500mg 90tab one tab DR baltazar by mouth MD Faustino - at 09/07 Bedtime along with the 250mg x3 tabs Cephalexin 07/09 Hx Capsules 500mg /2015 - 11/23 Divalproex 06/24 Hx Caps [...] i the MD Faustino - office 07/09 for illness, may return to work on tuesday06/27/15. Singulair 06/03 Hx Chewtabs 5mg 60uni 2 tablets J45.30 ts by mouth JOSEPH Portillo - every day 06/05 Betamethasone 05/27 Hx Ointment 0.1% 15gm apply to R21 Karla Val rash on MD Faustino - arm twice 09/07 a day Wellbutrin XL 05/05 Hx Tablets 150mg 30tab Take One Kian Munoz ER 24HR s Tablet By MD Chaka - Mouth 10/30 Every Dextromethorphan 03/14 Hx Syrup 10-100mg/ 120ml 1 R0Apret -Guaifenesin 5ML teaspoon MD Faustino - by mouth 09/07 every hours as needed Benzonatate 02/24 Hx Capsules 200mg 45cap one carlee s tablet by JOSEPH Portillo - mouth 03/14 every hours as needed cough Levocetirizine 06/20 Hx Tablets 5mg 30tab 1 by Carrington Dihydrochloride /2014 s mouth MD Tana - every day 02/24 Clotrimazole/Bet 01/25 Hx Cream 45uni thin jess Shultzethhansa /2013 ts layer to MD Tana Dipropionate - rash 05/27 twice a day Wellbutrin XL 08/27 Hx Tablets 150mg 30tab Take One Carrington, ER 24HR s Tablet By MD Tana - Mouth 05/05 Meloxicam 04/18 Hx Tablets 15mg 30tab take 1 Daron Hutson s tablet po MD - q day. 02/24 Depakote ER 00 Hx Tablets 500mg 60tab 2 by Carrington, /0000 ER 24HR s mouth MD Tana - every day 06/24 Divalproex Hx Tablets 250mg 30tab 1 by Carrington, Sodium ER /0000 ER 24HR s mouth MD Tana - every day 02/24 Ziprasidone HCL 00 Hx Capsules 60mg 2 by Carrington, /0000 mouth MD Tana - every at 02/24 Lowrey Hx Capsules 150mg 1 by Ezekiel Carbonate /0000 mouth Elena, - every day RPAC 02/24 Geodon Hx Capsules 80mg 90cap 1 by Karla /0000 s mouth MD Faustino - every at 10/30 bedtime Lowrey Hx Tablets 450mg 1 by Karla Carbonate [...] Td(Adult),Unspecified Vital Signs Date Vital Result Comment 11/21/2017 BP Systolic Sitting Right Arm 138 mmHg BP Diastolic Sitting Right Arm 78 mmHg Body Temperature 97.0 F Heart Rate 71 /min Height 68 inches 5'8" Weight 153.00 lb BMI (Body Mass Index) 23.3 kg/m2 BSA (Body Surface Area) 1.82 m2 [place] body weight in kilograms 70 O2 % BldC Oximetry 98 % 10/26/2017 BP Systolic Sitting Left Arm 138 mmHg BP Diastolic Sitting Left Arm 77 mmHg Body Temperature 97.9 F Heart Rate 66 /min Respiratory Rate 17 /min Height 68 inches 5'8" Weight 153.00 lb BMI (Body Mass Index) 23.3 kg/m2 BSA (Body Surface Area) 1.82 m2 [place] body weight in kilograms 70 O2 % BldC Oximetry 98 % 09/07/2017 BP Systolic 132 mmHg BP Diastolic 75 mmHg Body Temperature 98.2 F Heart Rate 63 /min Respiratory Rate 18 /min Height 68 inches 5'8" Weight 160.00 lb BMI (Body Mass Index) 24.3 kg/m2 BSA (Body Surface Area) 1.86 m2 [place] body weight in kilograms 70 01/27/2017 BP Systolic Sitting Resting Right Arm 127 mmHg BP Diastolic Sitting Resting Right Arm 72 mmHg Heart Rate 80 /min Height 68 inches 5'8" Weight 150.00 lb BMI (Body Mass Index) 22.8 kg/m2 BSA (Body Surface Area) 1.81 m2 [place] body weight in kilograms 70 11/22/2016 BP Systolic 118 mmHg BP Diastolic 80 mmHg Body Temperature 98.9 F Height 68 inches 5'8" Weight 148.00 lb BMI (Body Mass Index) 22.5 kg/m2 BSA (Body Surface Area) 1.80 m2 [place] body weight in kilograms 70 11/11/2016 BP Systolic Sitting Left Arm 116 mmHg BP Diastolic Sitting Left Arm 68 mmHg Body Temperature 98.8 F Heart Rate 88 /min Respiratory Rate 18 /min Height 68 inches 5'8" Weight 148.00 lb BMI (Body Mass Index) 22.5 kg/m2 BSA (Body Surface Area) 1.80 m2 [place] body weight in kilograms 70 10/28/2016 BP Systolic 132 mmHg BP Diastolic 80 mmHg Heart Rate 74 /min Height 68 inches 5'8" Weight 151.00 lb BMI (Body Mass Index) 23.0 kg/m2 BSA (Body Surface Area) 1.81 m2 [place] body weight in kilograms 70 09/10/2016 BP Systolic Sitting Left Arm 118 mmHg BP Diastolic Sitting Left Arm 72 mmHg Heart Rate 76 /min Respiratory Rate 18 /min Height 68 inches 5'8" Weight 149.00 lb BMI (Body Mass Index) 22.7 kg/m2 BSA (Body Surface Area) 1.80 m2 [place] body weight in kilograms 70 09/07/2016 BP [...] 1 Lymph % 30.9 % 20.0-42.0 1 Tillman % 6.9 % 0.0-10.0 1 Eo% 0.5 % 0.0-6.6 1 Bas% 0.2 % 0.0-1.1 1 Neut# 5.94 K/uL 1.8-7.0 1 Lymph # 2.99 K/uL 1.0-4.0 1 Tillman # 0.67 K/uL 0.0-0.8 1 Eos # [...] 4 Lymph % 34.2 % 20.0-42.0 4 Tillman % 7.7 % 0.0-10.0 4 Eo% 1.1 % 0.0-6.6 4 Bas% 0.4 % 0.0-1.1 4 Neut# 4.57 K/uL 1.8-7.0 4 Lymph # 2.76 K/uL 1.0-4.0 4 Tillman # 0.62 K/uL 0.0-0.8 4 Eos # [...] 3.0 mg/dL 4 Laboratory test finding 11/06/2017 Lowrey 0.20 mmol/L Low 0.60-1.20 4 CBC 10/17/2017 [...] U/L 45-117 9 Laboratory test finding 10/17/2017 Lowrey 0.47 mmol/L Low 0.60-1.20 9 Drugs Of Abuse-Urine 10/16/2017 Amphetamines (Urine) Negative 9 Screen 7 Barbiturates (Urine) Negative 9 Benzodiazepines (Urine) Negative 9 Cannabinoids (Urine) Negative 9 Cocaine Metabolite (Urine) Negative 9 Methadone (Urine) Negative 9 Opiates (Urine) Negative 9 Urine Cutoffs * 9, 11 Laboratory test finding 10/16/2017 Lowrey 0.24 mmol/L Low 0.60-1.20 9 Laboratory test finding 10/16/2017 Lowrey 0.34 mmol/L Low 0.60-1.20 9 Basic Metabolic [...] Acid 32.5 ug/mL Low 50.0- 100.0 13 Lowrey 1.65 mmol/L High 0.60-1.20 13, 18 Laboratory [...] TRACE mg/dL High Negative 22 Urine Specific [place] 1.020 1.010-1.030 22 Urine Blood NEGATIVE Negative [...] 1.7 mg/dL Low 2.8-20.0 22 , 25 Lowrey 0.59 mmol/L Low 0.60-1.20 22 CBS W/Automated [...] 22 Lymph % 29.4 % 20.0-42.0 22 Tillman % 10.7 % High 0.0-10.0 22 Eo% 1.0 % 0.0-6.6 22 Bas% 0.4 % 0.0-1.1 22 Neut# 4.04 K/uL 1.8-7.0 22 Lymph # 2.03 K/uL 1.0-4.0 22 Tillman # 0.74 K/uL 0.0-0.8 22 Eos # [...] 26 Lymph % 36.4 % 20.0-42.0 26 Tillman % 8.8 % 0.0-10.0 26 Eo% 1.8 % 0.0-6.6 26 Bas% 0.4 % 0.0-1.1 26 Neut# 3.79 K/uL 1.8-7.0 26 Lymph # 2.62 K/uL 1.0-4.0 26 Tillman # 0.63 K/uL 0.0-0.8 26 Eos # 0.13 K/uL 0.0-0.5 26 Baso # 0.03 K/uL 0.0-0.1 26 Laboratory test finding 08/29/2017 CK 102 U/L 39-308 26 Lowrey 0.49 mmol/L Low 0.60-1.20 26 Drugs Of [...] Ketone NEGATIVE mg/dL Negative 26 Urine Specific [place] 1.010 1.010-1.030 26 Urine Blood NEGATIVE Negative [...] Ketone NEGATIVE mg/dL Negative 30 Urine Specific [place] <=1.005 Low 1.010-1.030 30 Urine Blood NEGATIVE [...] 30 Lymph % 37.7 % 20.0-42.0 30 Tillman % 10.0 % 0.0-10.0 30 Eo% 1.5 % 0.0-6.6 30 Bas% 0.3 % 0.0-1.1 30 Neut# 3.93 K/uL 1.8-7.0 30 Lymph # 2.93 K/uL 1.0-4.0 30 Tillman # 0.78 K/uL 0.0-0.8 30 Eos # 0.12 K/uL 0.0-0.5 30 Baso # 0.02 K/uL 0.0-0.1 30 Laboratory test finding 07/14/2017 Lowrey < 0.20 mmol/L Low 0.60-1.20 30 CBS [...] 33 Lymph % 26.6 % 20.0-42.0 33 Tillman % 7.5 % 0.0-10.0 33 Eo% 0.7 % 0.0-6.6 33 Bas% 0.4 % 0.0-1.1 33 Neut# 6.14 K/uL 1.8-7.0 33 Lymph # 2.52 K/uL 1.0-4.0 33 Tillman # 0.71 K/uL 0.0-0.8 33 Eos # 0.07 K/uL 0.0-0.5 33 Baso # 0.04 K/uL 0.0-0.1 33 Ua RFX Micro & Culture II 06/25/2017 Urine Color YELLOW Yellow 33 Urine Clarity CLEAR Clear 33 Urine Glucose - Dipstick NEGATIVE mg/dL Negative 33 Urine Bilirubin - Dipstick NEGATIVE Negative 33 Urine Ketone NEGATIVE mg/dL Negative 33 Urine Specific [place] 1.025 1.010-1.030 33 Urine Blood NEGATIVE Negative [...] Acid 44.9 ug/mL Low 50.0- 100.0 33 Lowrey 0.37 mmol/L Low 0.60-1.20 33 Laboratory test [...] 39 Lymph % 32.9 % 20.0-42.0 39 Tillman % 12.4 % High 0.0-10.0 39 Eo% 2.4 % 0.0-6.6 39 Bas% 0.7 % 0.0-1.1 39 Neut# 3.92 K/uL 1.8-7.0 39 Lymph # 2.50 K/uL 1.0-4.0 39 Tillman # 0.94 K/uL High 0.0-0.8 39 Eos [...] 59.2 ug/mL 50.0-100.0 Laboratory test finding 10/31/2015 Lowrey 0.31 mmol/L Low 0.60-1.20 Drugs Of Abuse-Urine [...] Urine Ketone NEGATIVE mg/dL Negative Urine Specific [place] >=1.030 1.010-1.030 Urine Blood NEGATIVE Negative Urine [...] High 1.8-7.0 Lymph # 2.18 K/uL 1.8-7.0 Tillman # 0.58 K/uL 0.0-0.8 Eos # 0.05 [...] 0-1+ Anisocytosis 0-1+ Laboratory test finding 10/26/2015 Lowrey 0.32 mmol/L Low 0.60-1.20 Valproic Acid 31.7 [...] High 1.8-7.0 Lymph # 2.12 K/uL 1.8-7.0 Tillman # 0.89 K/uL High 0.0-0.8 Eos # 0.08 K/uL 0.0-0.5 Baso # 0.03 K/uL Low 0.1-0.2 Laboratory test finding 06/02/2015 Slide Review DIFF ORDERED Differential-WBC Confirm 06/02/2015 Total Cells Counted 100 #CELLS Neutrophils% 82 % High 33-73 Lymph% 13 % Low 17-56 Monocyte% 5 % 0-10 Platelet Estimate NORMAL Anisocytosis 0-1+ Laboratory test 06/02/2015 Lowrey < 0.20 mmol/L Low 0.60-1.20 69 finding [...] Urine Ketone NEGATIVE mg/dL Negative Urine Specific [place] >=1.030 1.010-1.030 Urine Blood TRACE Negative Urine PH 5.5 Low 6.5-7.5 Urine Protein - Dipstick NEGATIVE mg/dL Negative Urine Urobilinogen - Dipstick 0.2 E.U./dL 0.2-1.0 Urine Nitrite - Dipstick NEGATIVE Negative Urine Leuk Esterase NEGATIVE Negative Laboratory test finding 05/05/2015 Lowrey 0.35 mmol/L Low 0.60-1.20 Comprehensive Metabolic Panel [...] % 33.0-73.0 Lymph % 28.8 % 17.0-56.0 Tillman % 7.7 % 0.0-10.0 Eo% 0.9 % 0.0-5.0 Bas% 0.3 % 0.1-1.0 Neut# 6.39 K/uL 1.8-7.0 Lymph # 2.96 K/uL 1.8-7.0 Tillman # 0.79 K/uL 0.0-0.8 Eos # 0.09 [...] Urine Ketone NEGATIVE mg/dL Negative Urine Specific [place] 1.025 1.010-1.030 Urine Blood NEGATIVE Negative Urine [...] 7.9 g/dL 6.3-8.0 Laboratory test finding 08/27/2013 Lowrey < 0.20 mmol/L Low 0.60-1.20 1 DAWN [...] GOLDBERG HIGH LITHIUM AT 0057 10/16/17 by [facility] 19 [id number] It is recognized that currently available [...] Source: National Cholesterol Education Program (NCEP) 49 Concrete Finisher Apprentice: [id number] JORGE GRAYSON 50 URINE SPECIMENS ARE SCREENED [...] Liquid Chromatography/ TandemMass Spectrometry (LC-MS/MS) Performed at: [address] [id number] Sign Carpenter: Juan Jose Jean PhD, Phone: [phone] Reference Guidelines*: Desirable: ........... < 200 [...] Procedures Date CPT Code Description Status 10/26/2017 62517 Application of Cast short arm Completed 10/28/2015 90464 Psychiatric Diag Eval W/Medical Service Completed 04/17/2012 58928 FX Metatarsal-Closed W/O Completed Encounters Type Date Location Provider CPT E/M Dx Office Visit 11/21/2017 9:30a Orthopaedic Office [facility] 23294 S63.502D Office Visit 10/26/2017 9:30a Orthopaedic Office [facility] 48804 S63.502A Office Visit 09/07/2017 1:00p [place] [address] G40.909 F31.9 Office Visit 01/27/2017 10:45[place] [address] S16.1xxD Office Visit 11/22/2016 10:45a Family Evelia Portillo 45493 H66.92 ROLLER BEARING INSPECTOR Office Visit 11/11/2016 3:15[place] [address] H66.92 Office Visit 10/28/2016 10:45[place] [address] Z00.01 G40.909 F31.9 F79 E03.9 Z13.220 Office Visit 09/10/2016 11:30a Family JOSEPH Caldwell 88987 G40.909 Office Visit 09/07/2016 1:30p Family Medicine Marlen Cox, PNP-, 93528 G40.909 ROLLER BEARING INSPECTOR, Ibclc K02.9 Office Visit 07/10/2015 2:15p [place] [address] S60.059A Office Visit 06/25/2015 2:30p [place] [address] B86 F31.9 R13.10 Office Visit 06/03/2015 1:30p Family Medicine RADHA CejaP 42912 R13.10 J45.30 R05 R21 F31.9 Office Visit 05/27/2015 2:00p Family Medicine Tana Shultz M.D. 25346 R21 Office Visit 05/05/2015 1:00p [place] [address] Z00.00 F31.9 F84.9 J45.20 Z23 Office Visit 03/14/2015 11:45a Family Medicine Lucinda Cloud M.D. 29833 R05 Office Visit 02/24/2015 3:30p Family Medicine Elmer Portillo [facility] 69731 J20.9 R05 Plan of Care Future Appointment(s):12/15/2017 9:00 am - [facility] at [facility]11/21/2017 - DEEDEE Blanco63.502D Unspecified sprain of left wrist, subsequent encounterNew Therapy:Physical/Occupational TherapyComments:I have transitioned him to a brace and he will start a course of physical therapy. He will follow up for recheck in 3-4 weeks.AllFollow up:3-4 wk
[2017-12-01 19:33] VITALS: BP 137/78
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
== END 2017-12-01 20:16 | disposition home or self-care (01) ==
LOC: UCCORT 19:20
DX: M25.532 Pain in left wrist (principal); Y35.813A Legal intervention involving manhandling, suspect injured, initial encounter; Y92.89 Other specified places as the place of occurrence of the external cause; Z88.1 Allergy status to other antibiotic agents; Z88.8 Allergy status to other drugs, medicaments and biological substances; Z87.891 Personal history of nicotine dependence
CPT/HCPCS: 99212; G0463

== ENCOUNTER 2017-12-14 17:30 | Emergency (ER) | payer MEDICARE, MEDICAID ==
[2017-12-14 18:06] VITALS: BP 132/71
--- NOTE | 2017-12-14 19:21 | ED ---
Respiratory - HPI Summary HPI Summary: 27 yr old male with the complaint of coughing for a week, and presents here with left side rib pain. He has been coughing a lot for several days. Left side rib pain since this morning. No fever or chills. No rash. No SOB. - History of Current Complaint Chief Complaint: UCGeneralIllness Stated Complaint: LEFT SIDED RIB PAIN Time Seen by Provider: 12/14/17 18:22 Pain Intensity: 10 - Allergy/Home Medications Allergies/Adverse Reactions: Allergies Allergy/AdvReac Type Severity Reaction Status Date / Time bupropion [From Wellbutrin] Allergy Anaphylatic Verified 12/01/17 19:34 Shock clindamycin Allergy Anaphylatic Verified 12/01/17 19:34 Shock diphenhydramine Allergy Difficulty Verified 12/01/17 19:34 [From Benadryl] Breathing PMH/Surg Hx/FS Hx/Imm Hx Endocrine/Hematology History: Reports: Hx Thyroid Disease Psychiatric History: Reports: Hx Schizophrenia, Hx Bipolar Disorder - Surgical History Surgery Procedure, Year, and Place: T&A age 17. EYE SURGERY Infectious Disease History: No Infectious Disease History: Denies: Hx Clostridium Difficile, Hx Hepatitis, Hx Human Immunodeficiency Virus (HIV), Hx of Known/Suspected MRSA, Hx Shingles, Hx Tuberculosis, Hx Known/ Suspected VRE, Hx Known/Suspected VRSA, History Other Infectious Disease, Traveled Outside the [place] in Last 30 Days - Family History Known Family History: Positive: Unknown - patient does not know his family history, he is intellectualy impaired, Respiratory Disease Negative: Other - NO JOINT LAXITY - Social History Alcohol Use: Rare Substance Use Type: Reports: None Smoking Status (MU): Never Smoked Tobacco Have You Smoked in the Last Year: No Review of Systems Constitutional: Negative Positive: Cough, Other - left rib pain All Other Systems Reviewed And Are Negative: Yes Physical Exam Triage Information Reviewed: Yes Vital Signs On Initial Exam: Initial Vitals Temp Pulse Resp BP Pulse Ox 98.2 F 75 20 132/71 98 12/14/17 18:00 12/14/17 18:00 12/14/17 18:00 12/14/17 18:00 12/14/17 18:00 Vital Signs Reviewed: Yes Appearance: Positive: Well-Appearing, No Pain Distress Skin: Positive: Warm, Skin Color Reflects Adequate Perfusion Head/Face: Positive: Normal Head/Face Inspection Eyes: Positive: EOMI ENT: Positive: Normal ENT inspection Neck: Positive: Nontender Respiratory/Lung Sounds: Positive: Clear to Auscultation, Breath Sounds Present , Other - tender over the left lower ribs. Cardiovascular: Positive: RRR. Negative: Murmur Abdomen Description: Positive: Nontender. Negative: CVA Tenderness (R), CVA Tenderness (L) Musculoskeletal: Positive: Strength/ROM Intact. Negative: Edema Left, Edema Right Neurological: Positive: Sensory/Motor Intact, Alert, Oriented to Person Place, Time, CN Intact II-III Psychiatric: Positive: Normal - Magdalena Coma Scale Best Eye Response: 4 - Spontaneous Best Motor Response: 6 - Obeys Commands Best Verbal Response: 5 - Oriented Coma Scale Total: 15 Diagnostics - Vital Signs Vital Signs Temp Pulse Resp BP Pulse Ox 12/14/17 18:00 98.2 F 75 20 132/71 98 - Laboratory Lab Statement: Any lab studies that have been ordered have been reviewed, and results considered in the medical decision making process. - Radiology chest xray Xray Interpretation: No Acute Changes Radiology Interpretation Completed By: ED Physician Disposition - Course Course Of Treatment: 27 yr old male with left rib pain. Plan DC home. xray ok. Chest wall strain. - Diagnoses Provider Diagnoses: Chest wall pain Discharge - Sign-Out/Discharge Documenting (check all that apply): Patient Departure All imaging exams completed and their final reports reviewed: No - Discharge Plan Condition: Good Disposition: HOME Patient Education Materials: Chest Wall Pain (ED) Referrals: Karla Harmon MD [Primary Care Provider] - 2 Days - Billing Disposition and Condition Condition: GOOD Disposition: Home
--- NOTE | 2017-12-15 08:02 | RAD ---
Indication: Chest pain. 2 views of the chest including dual energy PA views are reviewed. No mediastinal shift is noted. Heart is of normal size and configuration. Lung osman are clear. When compared to previous exam of September 06, 2011 no significant change is noted. IMPRESSION: No active cardiopulmonary disease is noted. R1
== END 2017-12-14 19:26 | disposition home or self-care (01) ==
LOC: UCCORT 17:30
DX: R07.89 Other chest pain (principal); Z88.3 Allergy status to other anti-infective agents; Z88.8 Allergy status to other drugs, medicaments and biological substances
CPT/HCPCS: 71046; 99212; G0463

== ENCOUNTER 2018-03-13 18:04 | Emergency (ER) | payer MEDICARE, MEDICAID ==
[2018-03-13 18:28] VITALS: BP 119/70
--- NOTE | 2018-03-13 18:41 | UC ---
Lower Extremity/Ankle HPI - HPI Summary HPI Summary: 27 yo male presents with LEFT knee pain. He tells me that 2 days ago he tripped and fell onto his left knee and sustained an abrasion. He did not hit his head or have LOC. He was able to get to his feet and was ambulatory immediately following the event. Last night he was still in pain and went to the ER where he tells me that they "did nothing" and says no XRs were taken. Today his pain continues. He is ambulatory without assistance. Denies numbness or tingling. - History of Current Complaint Chief Complaint: UCLowerExtremity Stated Complaint: KNEE PAIN Time Seen by Provider: 03/13/18 18:40 Hx Obtained From: Patient Onset/Duration: Sudden Onset Severity Initially: Severe Severity Currently: Severe Pain Intensity: 10 Pain Scale Used: 0-10 Numeric Aggravating Factor(s): Standing, Ambulation Able to Bear Weight: Yes - Allergies/Home Medications Allergies/Adverse Reactions: Allergies Allergy/AdvReac Type Severity Reaction Status Date / Time bupropion [From Wellbutrin] Allergy Anaphylatic Verified 03/13/18 18:29 Shock clindamycin Allergy Anaphylatic Verified 03/13/18 18:29 Shock diphenhydramine Allergy Difficulty Verified 03/13/18 18:29 [From Benadryl] Breathing PMH/Surg Hx/FS Hx/Imm Hx - Additional Past Medical History Additional PMH: Mental impairment Endocrine History: Hypothyroidism Psychological History: Schizophrenia - Surgical History Surgical History: Yes Surgery Procedure, Year, and Place: T&A age 17. EYE SURGERY - Family History Known Family History: Positive: Unknown - patient does not know his family history, he is intellectualy impaired, Respiratory Disease Negative: Other - NO JOINT LAXITY - Social History Alcohol Use: Occasionally Substance Use Type: None Smoking Status (MU): Never Smoked Tobacco Have You Smoked in the Last Year: No When Did the Patient Quit Smoking/Using Tobacco: 2006 Household Exposure Type: Cigarettes - Immunization History Most Recent Influenza Vaccination: 2017 Most Recent Tetanus Shot: 10/22/16 Review of Systems All Other Systems Reviewed And Are Negative: Yes Constitutional: Positive: Negative Skin: Positive: Other - Abrasion left knee Respiratory: Positive: Negative Cardiovascular: Positive: Negative Neurovascular: Positive: Negative Musculoskeletal: Positive: Other: - Left knee pain Neurological: Positive: Negative Psychological: Positive: Negative Physical Exam - Summary Physical Exam Summary: GENERAL: NAD. WDWN. No pain distress. SKIN: Superficial abrasion to inferior left knee. Scabbed and appears to be healing well. No bleeding, open wound, warmth, or erythema. CHEST: No accessory muscle use. Breathing comfortably and in no distress. CV: . Pulses intact popliteal, PT, and DP. Cap refill <2seconds MSK: Mild TTP about whole left knee. Strength 5/5. No edema or obvious bony deformities. No patella apprehension. Negative Ruben, A/P drawer, Mustapha, and varus/valgus stress. NEURO: Alert. Sensations intact and symmetric B/L LEs PSYCH: Age appropriate behavior. Triage Information Reviewed: Yes Vital Signs: Initial Vital Signs Temp 98.4 F 03/13/18 18:24 Pulse 72 03/13/18 18:24 Resp 16 03/13/18 18:24 BP 119/70 03/13/18 18:24 Pulse Ox 98 03/13/18 18:24 Vital Signs Reviewed: Yes Lower Extremity Course/Dx - Course Course Of Treatment: Knee XR: No radiologist reading after 1800, therefore wet read by myself is negative. Suspect pain due to impact with knee abrasion. Knee was NETTIE wrapped in the clinic and advised to RICE and take his at home pain medication. - Differential Dx/Diagnosis Provider Diagnosis: Left knee pain, Abrasion of knee, left Discharge - Sign-Out/Discharge Documenting (check all that apply): Patient Departure All imaging exams completed and their final reports reviewed: No - Discharge Plan Condition: Stable Disposition: HOME Patient Education Materials: Knee Pain (ED) Referrals: Karla Harmon MD [Primary Care Provider] - Janell Marinelli MD [Medical Doctor] - If Needed Additional Instructions: If you develop a fever, shortness of breath, chest pain, new or worsening symptoms - please call your PCP or go to the ED. 1) Rest, Ice, and elevate your knee as much as possible 2) Please call Orthopedics at the number below to schedule a follow up appointment if your pain continues - Billing Disposition and Condition Condition: STABLE Disposition: Home
--- NOTE | 2018-03-14 15:18 | UC ---
- Progress Note Progress Note: Patient Name: CHARISSE RAND Medical Record#: [id number] Ordering Physician: Rommel CURTIS Acct.#: [id number] : 1990 Age: 27 Sex: M Location: [facility] Exam Date: 03/13/181828 ADM Status: [facility] ER Order Information: KNEE LEFT 4+ VWS Accession Number: [id number] CPT: 19658 INDICATION: Left knee injury. TECHNIQUE: 4 views of the left knee were obtained. FINDINGS: The bones are in normal alignment. No joint effusion or fracture is seen. Joint spaces appear maintained. IMPRESSION: NO EVIDENCE FOR FRACTURE. R0 Preliminary Imaging Read R0 <Electronically signed by Robert Olivera MD in OV> 03/14/18710 Dictated By: Robert Olivera MD Dictated Date/Time: 03/14/18710 Transcribed Date/Time: 03/14/18709 Copy to: CC:Karla Harmon MD; Rommel CURTIS; Aidan Bledsoe MD Imaging - [facility] Imaging - [facility] [place] [address] [place] [address] ph [phone]) ph ([phone]) ph ([phone]) This report is only to be considered final once signed by the Provider(s) as displayed in the "<Electronically Signed by >" field (s). Absence of a signature indicates the report is in a draft status and still needs to be finalized. In the event this document was created by someone other than the signing Provider, the individual initiating the document will be listed in the "Entered by:" or "Dictated by:" osman. 1 of 1 Course/Dx - Diagnoses Provider Diagnoses: Left knee pain, Abrasion of knee, left Discharge - Sign-Out/Discharge Documenting (check all that apply): Post-Discharge Follow Up All imaging exams completed and their final reports reviewed: Yes - Discharge Plan Condition: Stable Disposition: HOME Patient Education Materials: Knee Pain (ED) Referrals: Janell Marinelli MD [Medical Doctor] - If Needed Karla Harmon MD [Primary Care Provider] - Additional Instructions: If you develop a fever, shortness of breath, chest pain, new or worsening symptoms - please call your PCP or go to the ED. 1) Rest, Ice, and elevate your knee as much as possible 2) Please call Orthopedics at the number below to schedule a follow up appointment if your pain continues - Billing Disposition and Condition Condition: STABLE Disposition: Home
== END 2018-03-13 19:32 | disposition home or self-care (01) ==
LOC: UCCORT 18:04
DX: K03.1 Abrasion of teeth (principal); S80.212A Abrasion, left knee, initial encounter; W01.0XXA Fall on same level from slipping, tripping and stumbling without subsequent striking against object, initial encounter; Y92.9 Unspecified place or not applicable; M25.562 Pain in left knee; Z88.1 Allergy status to other antibiotic agents; Z88.8 Allergy status to other drugs, medicaments and biological substances
CPT/HCPCS: 99212; G0463

== ENCOUNTER 2018-03-28 19:13 | Emergency (ER) | payer MEDICARE, MEDICAID ==
[2018-03-28 19:37] VITALS: BP 144/68
--- NOTE | 2018-03-28 20:05 | UC ---
Lower Extremity/Ankle HPI - HPI Summary HPI Summary: Patient is a 27-year-old male that complains of right foot pain primarily over the first med a tarsal that has been there for months. He denies any recent injury. Pain is worse with weightbearing. He has CP. - History of Current Complaint Chief Complaint: UCLowerExtremity Stated Complaint: RIGHT FOOT PAIN Time Seen by Provider: 03/28/18 19:44 Hx Obtained From: Patient Onset/Duration: Gradual Onset, Lasting Weeks Severity Initially: Mild Severity Currently: Severe Pain Intensity: 9 Pain Scale Used: 0-10 Numeric Aggravating Factor(s): Standing, Ambulation Alleviating Factor(s): Rest, Elevation Able to Bear Weight: Yes - Allergies/Home Medications Allergies/Adverse Reactions: Allergies Allergy/AdvReac Type Severity Reaction Status Date / Time bupropion [From Wellbutrin] Allergy Anaphylatic Verified 03/28/18 19:22 Shock clindamycin Allergy Anaphylatic Verified 03/28/18 19:22 Shock diphenhydramine Allergy Difficulty Verified 03/28/18 19:22 [From Benadryl] Breathing PMH/Surg Hx/FS Hx/Imm Hx Previously Healthy: Yes - Surgical History Surgical History: Yes Surgery Procedure, Year, and Place: T&A age 17. EYE SURGERY - Family History Known Family History: Positive: Unknown - patient does not know his family history, he is intellectualy impaired, Respiratory Disease Negative: Other - NO JOINT LAXITY - Social History Alcohol Use: Occasionally Substance Use Type: None Smoking Status (MU): Never Smoked Tobacco Have You Smoked in the Last Year: No When Did the Patient Quit Smoking/Using Tobacco: 2006 Household Exposure Type: Cigarettes - Immunization History Most Recent Influenza Vaccination: 2017 Most Recent Tetanus Shot: 10/22/16 Review of Systems All Other Systems Reviewed And Are Negative: Yes Constitutional: Positive: Negative Skin: Positive: Negative Eyes: Positive: Negative ENT: Positive: Negative Respiratory: Positive: Negative Cardiovascular: Positive: Negative Gastrointestinal: Positive: Negative Genitourinary: Positive: Negative Motor: Positive: Negative Neurovascular: Positive: Negative Musculoskeletal: Positive: Arthralgia Neurological: Positive: Negative Psychological: Positive: Negative Physical Exam Triage Information Reviewed: Yes Appearance: Well-Appearing, No Pain Distress, Well-Nourished Vital Signs: Initial Vital Signs Temp 98.8 F 03/28/18 19:26 Pulse 84 03/28/18 19:26 Resp 16 03/28/18 19:26 BP 144/68 03/28/18 19:26 Pulse Ox 100 03/28/18 19:26 Vital Signs Reviewed: Yes Eyes: Positive: Conjunctiva Clear ENT: Positive: Hearing grossly normal. Negative: Nasal congestion, Nasal drainage, Trismus, Muffled voice, Dental tenderness Neck: Positive: Supple, Nontender, No Lymphadenopathy Musculoskeletal: Positive: ROM Intact, No Edema Neurological: Positive: Alert Skin Exam: Normal Diagnostics - Radiology No standard instances Radiology Interpretation Completed By: ED Physician Summary of Radiographic Findings: no fx, hallux valgus Lower Extremity Course/Dx - Differential Dx/Diagnosis Provider Diagnosis: Hallux valgus (acquired), right foot, Overuse injury Discharge - Sign-Out/Discharge Documenting (check all that apply): Patient Departure All imaging exams completed and their final reports reviewed: No - Discharge Plan Condition: Stable Disposition: HOME Patient Education Materials: Ankle Strain (ED) Referrals: Karla Harmon MD [Primary Care Provider] - 2 Weeks Additional Instructions: CAM boot - Billing Disposition and Condition Condition: STABLE Disposition: Home
--- NOTE | 2018-03-29 08:28 | UC ---
- Progress Note Progress Note: Right foot x-ray from March 28, 2018 has been read by the radiologist as no fracture. The provider from the same date also read it as no fracture. Therefore there is no discrepancy. Course/Dx - Diagnoses Provider Diagnoses: Hallux valgus (acquired), right foot, Overuse injury Discharge - Sign-Out/Discharge Documenting (check all that apply): Patient Departure All imaging exams completed and their final reports reviewed: Yes - Discharge Plan Condition: Stable Disposition: HOME Patient Education Materials: Ankle Strain (ED) Referrals: Karla Harmon MD [Primary Care Provider] - 2 Weeks Additional Instructions: CAM boot - Billing Disposition and Condition Condition: STABLE Disposition: Home
== END 2018-03-28 20:25 | disposition home or self-care (01) ==
LOC: UCCORT 19:13
DX: M20.11 Hallux valgus (acquired), right foot (principal); M70.871 Other soft tissue disorders related to use, overuse and pressure, right ankle and foot; Y93.9 Activity, unspecified; Z87.891 Personal history of nicotine dependence; Z88.8 Allergy status to other drugs, medicaments and biological substances; Z88.1 Allergy status to other antibiotic agents
CPT/HCPCS: 99212; G0463

== ENCOUNTER 2018-07-05 17:55 | Emergency (ER) | payer MEDICARE, MEDICAID ==
[2018-07-05 18:59] VITALS: BP 135/71
--- NOTE | 2018-07-05 20:00 | UC ---
Shoulder Pain HPI - HPI Summary HPI Summary: Pt presents with c/o sudden onset of right shoulder and upper back pain. Pt states he was riding his bike and had sudden onset of pain in right shoulder and right side upper back. Denies injury - History of Current Complaint Chief Complaint: UCUpperExtremity Stated Complaint: RIGHT SHOULDER CONCERN Time Seen by Provider: 07/05/18 19:57 Hx Obtained From: Patient Onset/Duration: Sudden Onset, Lasting Hours Timing: Constant Severity Initially: Mild Severity Currently: Mild Pain Intensity: 8 Character: Dull, Aching, Stiffness Aggravating Factor(s): Movement Alleviating Factor(s): Rest Associated Signs And Symptoms: Positive: Negative - Risk Factors Non-Orthopedic Risk Factor: Negative - Allergies/Home Medications Allergies/Adverse Reactions: Allergies Allergy/AdvReac Type Severity Reaction Status Date / Time bupropion [From Wellbutrin] Allergy Anaphylatic Verified 07/05/18 18:56 Shock clindamycin Allergy Anaphylatic Verified 07/05/18 18:56 Shock diphenhydramine Allergy Difficulty Verified 07/05/18 18:56 [From Benadryl] Breathing PMH/Surg Hx/FS Hx/Imm Hx Previously Healthy: Yes - Surgical History Surgical History: Yes Surgery Procedure, Year, and Place: T&A age 17. EYE SURGERY - Family History Known Family History: Positive: Unknown - patient does not know his family history, he is intellectualy impaired, Respiratory Disease Negative: Other - NO JOINT LAXITY - Social History Occupation: Disabled Lives: With Family Alcohol Use: None Substance Use Type: None Smoking Status (MU): Never Smoked Tobacco Have You Smoked in the Last Year: No When Did the Patient Quit Smoking/Using Tobacco: 2006 Household Exposure Type: Cigarettes - Immunization History Most Recent Influenza Vaccination: 2017 Most Recent Tetanus Shot: 10/22/16 Review of Systems All Other Systems Reviewed And Are Negative: Yes Constitutional: Positive: Negative Skin: Positive: Negative Eyes: Positive: Negative ENT: Positive: Negative Respiratory: Positive: Negative Cardiovascular: Positive: Negative Gastrointestinal: Positive: Negative Genitourinary: Positive: Negative Motor: Positive: Decreased ROM - right shoulder Neurovascular: Positive: Negative Musculoskeletal: Positive: Arthralgia, Decreased ROM, Myalgia Neurological: Positive: Negative Psychological: Positive: Negative Is Patient Immunocompromised?: No Physical Exam Triage Information Reviewed: Yes Appearance: Well-Appearing Vital Signs: Initial Vital Signs Temp 99.1 F 07/05/18 18:54 Pulse 81 07/05/18 18:54 Resp 16 07/05/18 18:54 BP 135/71 07/05/18 18:54 Pulse Ox 98 07/05/18 18:54 Vital Signs Reviewed: Yes Eye Exam: Normal ENT Exam: Normal Dental: Positive: Gross Decay/Caries @ Respiratory: Positive: No respiratory distress Musculoskeletal Exam: Other - c/o pain with right shoulder ROM, c/o pain right upper trapezius, no, bruising, no swelling, trigger point pain Shoulder Course/Dx - Differential Dx/Diagnosis Differential Diagnosis/HQI/PQRI: Arthritis, Sprain, Strain, Tendonitis Provider Diagnosis: Pain of right shoulder joint on movement, Upper back pain on right side Discharge - Sign-Out/Discharge Documenting (check all that apply): Patient Departure All imaging exams completed and their final reports reviewed: No Studies - Discharge Plan Condition: Stable Disposition: HOME Patient Education Materials: Trigger Point Pain (ED), Shoulder Pain (ED) Referrals: Karla Harmon MD [Primary Care Provider] - If Needed - Billing Disposition and Condition Condition: STABLE Disposition: Home - Attestation Statements Provider Attestation: Per institutional requirements, I have reviewed the chart, however, I was not consulted specifically or made aware of this patient by the midlevel provider. I did not personally evaluate, interact with , or disposition this patient.
== END 2018-07-05 20:06 | disposition home or self-care (01) ==
LOC: UCCORT 17:55
DX: M25.511 Pain in right shoulder (principal); M54.6 Pain in thoracic spine; F79 Unspecified intellectual disabilities; M79.10 Myalgia, unspecified site; Z88.1 Allergy status to other antibiotic agents; Z88.8 Allergy status to other drugs, medicaments and biological substances
CPT/HCPCS: 99211; G0463

== ENCOUNTER 2019-01-31 15:17 | Emergency (ER) | payer MEDICARE, MEDICAID ==
[2019-01-31 16:20] VITALS: BP 125/63
[2019-01-31] MEDS ORDERED: Acetaminophen TAB* 325 MG PO ONE (16:33)
--- NOTE | 2019-01-31 16:39 | ED ---
Upper Extremity Pain - HPI Summary HPI Summary: 28 yr old with the complaint of right forearm and right posterior upper arm pain. The the patient states he was restrained and handcuffed by the police yesterday and taken to [facility] [place][note 2] for eval for SI. No SI today. He has pain today, and worse with movement. No deformity. No bruise or swelling. No other complaints. - History of Current Complaint Chief Complaint: UCUpperExtremity Stated Complaint: RT ARM COMPLAINT Time Seen by Provider: 01/31/19 16:29 - Allergies/Home Medications Allergies/Adverse Reactions: Allergies Allergy/AdvReac Type Severity Reaction Status Date / Time bupropion [From Wellbutrin] Allergy Anaphylatic Verified 01/31/19 16:20 Shock clindamycin Allergy Anaphylatic Verified 01/31/19 16:20 Shock diphenhydramine Allergy Difficulty Verified 01/31/19 16:20 [From Benadryl] Breathing PMH/Surg Hx/FS Hx/Imm Hx Endocrine/Hematology History: Reports: Hx Thyroid Disease Respiratory History: Reports: Hx Asthma Psychiatric History: Reports: Hx Schizophrenia, Hx Bipolar Disorder - Surgical History Surgery Procedure, Year, and Place: T&A age 17. EYE SURGERY Infectious Disease History: No Infectious Disease History: Denies: Hx Clostridium Difficile, Hx Hepatitis, Hx Human Immunodeficiency Virus (HIV), Hx of Known/Suspected MRSA, Hx Shingles, Hx Tuberculosis, Hx Known/ Suspected VRE, Hx Known/Suspected VRSA, History Other Infectious Disease, Traveled Outside the [place] in Last 30 Days - Family History Known Family History: Positive: Unknown - patient does not know his family history, he is intellectualy impaired, Respiratory Disease Negative: Other - NO JOINT LAXITY - Social History Alcohol Use: Occasionally Substance Use Type: Reports: None Smoking Status (MU): Former Smoker Have You Smoked in the Last Year: No Review of Systems Constitutional: Negative Positive: Other - right forearm arm pain All Other Systems Reviewed And Are Negative: Yes Physical Exam Triage Information Reviewed: Yes Vital Signs On Initial Exam: Initial Vitals Temp Pulse Resp BP Pulse Ox 99.0 F 77 16 125/63 99 01/31/19 16:11 01/31/19 16:11 01/31/19 16:11 01/31/19 16:11 01/31/19 16:11 Vital Signs Reviewed: Yes Appearance: Positive: Well-Appearing, No Pain Distress Skin: Positive: Warm, Skin Color Reflects Adequate Perfusion Head/Face: Positive: Normal Head/Face Inspection Eyes: Positive: EOMI ENT: Positive: Normal ENT inspection Neck: Positive: Nontender Respiratory/Lung Sounds: Positive: Clear to Auscultation, Breath Sounds Present Cardiovascular: Positive: RRR Abdomen Description: Negative: Distended Musculoskeletal: Positive: Strength/ROM Intact, Other - right forearm and right upper arm without edema, redness, bruise. She has good ROM, no deformity. Neurological: Positive: Sensory/Motor Intact, Alert, Oriented to Person Place, Time, CN Intact II-III Psychiatric: Positive: Normal Diagnostics - Vital Signs Vital Signs Temp Pulse Resp BP Pulse Ox 01/31/19 16:11 99.0 F 77 16 125/63 99 - Laboratory Lab Statement: Any lab studies that have been ordered have been reviewed, and results considered in the medical decision making process. Course/Dx - Course Course Of Treatment: 28 yr old with right arm sprain. DC home. - Diagnoses Provider Diagnoses: Right arm pain Discharge ED - Sign-Out/Discharge Documenting (check all that apply): Patient Departure All imaging exams completed and their final reports reviewed: No Studies - Discharge Plan Condition: Good Disposition: HOME Referrals: Karla Harmon MD [Primary Care Provider] - - Billing Disposition and Condition Condition: GOOD Disposition: Home
== END 2019-01-31 16:45 | disposition home or self-care (01) ==
LOC: UCCORT 15:17
DX: M79.631 Pain in right forearm (principal); S49.81XA Other specified injuries of right shoulder and upper arm, initial encounter; J45.909 Unspecified asthma, uncomplicated; F31.9 Bipolar disorder, unspecified; Z88.8 Allergy status to other drugs, medicaments and biological substances; Z88.1 Allergy status to other antibiotic agents; Z87.891 Personal history of nicotine dependence; X58.XXXA Exposure to other specified factors, initial encounter; Y92.9 Unspecified place or not applicable
CPT/HCPCS: 99212; A9270-GY; G0463

== ENCOUNTER 2019-02-14 19:00 | Emergency (ER) | payer MEDICAID, MEDICARE, OTHER ==
[2019-02-14 19:28] VITALS: BP 144/72
--- NOTE | 2019-02-14 20:12 | UC ---
Eye Complaint HPI - HPI Summary HPI Summary: 28 yo with bipolar disease, who gets suicidal thoughts when he gets upset. This happened a few days ago, and he resisted going for evaluation, so was handcuffed. He has mild facial bruising and a sore neck since then. 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 - History of Current Complaint Chief Complaint: UCEye Stated Complaint: L EYE CONCERN Time Seen by Provider: 02/14/19 20:10 Hx Obtained From: Patient Onset/Duration: Sudden Onset, Lasting Days - noticed pm of 02/13 Timing: Constant Severity Initially: Mild Severity Currently: Mild Pain Intensity: 10 Location of Injury: Other - infero-lateral to left eye, over zygoma. Character: Dull Aggravating Factor(s): Other - touch Alleviating Factor(s): Nothing Associated Signs And Symptoms: Positive: Vision Impairment Left - chronic Related History: Trauma - Risk Factors Penetrating Injury Risk Factor: Negative Globe Rupture Risk Factors: Negative Acute Glaucoma Risk Factors: Negative Optic Artery Occlusion Risk Factors: Negative - Allergies/Home Medications Allergies/Adverse Reactions: Allergies Allergy/AdvReac Type Severity Reaction Status Date / Time bupropion [From Wellbutrin] Allergy Anaphylatic Verified 02/14/19 19:27 Shock clindamycin Allergy Anaphylatic Verified 02/14/19 19:27 Shock diphenhydramine Allergy Difficulty Verified 02/14/19 19:27 [From Benadryl] Breathing PMH/Surg Hx/FS Hx/Imm Hx Previously Healthy: No Neurological History: Seizures Psychological History: Bipolar Disorder - Surgical History Surgical History: Yes Surgery Procedure, Year, and Place: T&A age 17. EYE SURGERY - Family History Known Family History: Positive: Unknown - patient does not know his family history, he is intellectualy impaired, Respiratory Disease Negative: Other - NO JOINT LAXITY - Social History Occupation: Disabled Lives: Alone Alcohol Use: Occasionally Substance Use Type: None Smoking Status (MU): Former Smoker Have You Smoked in the Last Year: No When Did the Patient Quit Smoking/Using Tobacco: 2006 Household Exposure Type: Cigarettes - Immunization History Most Recent Influenza Vaccination: 2017 Most Recent Tetanus Shot: 10/22/16 Review of Systems All Other Systems Reviewed And Are Negative: Yes Constitutional: Positive: Negative Skin: Positive: Bruising Eyes: Positive: Negative ENT: Positive: Negative Respiratory: Positive: Negative Cardiovascular: Positive: Negative Gastrointestinal: Positive: Negative Genitourinary: Positive: Negative Motor: Positive: Other - left neck is sore. Neurovascular: Positive: Negative Musculoskeletal: Positive: Myalgia Neurological: Positive: Negative Psychological: Positive: Anxious Is Patient Immunocompromised?: No Physical Exam Triage Information Reviewed: Yes Appearance: Ill-Appearing, Pain Distress - mild, Thin Vital Signs: Initial Vital Signs Temp 99.4 F 02/14/19 19:24 Pulse 77 02/14/19 19:24 Resp 18 02/14/19 19:24 BP 144/72 02/14/19 19:24 Pulse Ox 98 02/14/19 19:24 Eyes: Positive: Conjunctiva Clear, Other: - left eye esotropia ENT: Positive: Pharynx normal Neck: Positive: Supple, Tenderness @ - left upper trapezius Respiratory: Positive: Lungs clear, Normal breath sounds Cardiovascular: Positive: RRR, No Murmur Musculoskeletal Exam: Normal Neurological Exam: Normal Psychological Exam: Normal Skin Exam: Other - erythematous, mildly swollen area left upper cheek, about 2 x 1 cm. Eye Complaint Course/Dx - Course Course Of Treatment: acetaminophen for discomfort. Hot pack to neck, ice to cheek. - Differential Dx/Diagnosis Differential Diagnosis/HQI/PQRI: Other - contusion Provider Diagnosis: Facial contusion Discharge ED - Sign-Out/Discharge Documenting (check all that apply): Patient Departure All imaging exams completed and their final reports reviewed: No Studies - Discharge Plan Condition: Stable Disposition: HOME Patient Education Materials: Facial Contusion (ED) Referrals: Karla Harmon MD [Primary Care Provider] - Additional Instructions: use ice on the left cheek to decrease the pain and swelling, for about 10 minutes 3 or 4 times per day. Take acetaminophen as needed for control of pain from your injury. - Billing Disposition and Condition Condition: STABLE Disposition: Home
== END 2019-02-14 20:37 | disposition home or self-care (01) ==
LOC: UCCORT 19:00
DX: S00.83XA Contusion of other part of head, initial encounter (principal); R29.898 Other symptoms and signs involving the musculoskeletal system; H50.00 Unspecified esotropia; Z88.8 Allergy status to other drugs, medicaments and biological substances; F31.9 Bipolar disorder, unspecified; Z87.891 Personal history of nicotine dependence; Z88.1 Allergy status to other antibiotic agents; X58.XXXA Exposure to other specified factors, initial encounter; Y92.9 Unspecified place or not applicable
CPT/HCPCS: 99211; G0463

== ENCOUNTER 2019-05-31 17:42 | Emergency (ER) | payer MEDICARE, OTHER ==
--- OUTSIDE RECORDS SUMMARY | 2019-05-31 17:52 | XMS REPORT | Continuity of Care Document ---
:1990 External Reference #:[id number] Author Name Yelitza Coronel FNP (transmitted by agent of provider Karla Harmon) Address [address] [place] [id number] Care Team Providers Name Role Phone Karla Harmon MD - Family Medicine Care Team Information Staff Analyst [phone] Problems Active Problems Provider Date Cerebral palsy Tana Shultz M.D. Onset: 08/27/2013 Bipolar disorder Tana Shultz M.D. Onset: 08/27/2013 Mild mental handicap Tana Shultz M.D. 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 Mild intermittent asthma, Karla Harmon MD Onset: 05/05/2015 uncomplicated Dysphagia Karla Harmon MD Onset: 06/25/2015 Epilepsy Marlen Cox, NAVYA-WANDA, [employer], Onset: 09/07/2016 Ibclc Mental retardation Karla Harmon MD Onset: 10/28/2016 Hypothyroidism Karla Harmon MD Onset: 10/28/2016 Hyperlipidemia screening Karla Harmon MD Onset: 10/28/2016 Social History Type Date Description Comments Sex Unknown Tobacco Use Start: Unknown Never Smoked Cigarettes Smoking Status Reviewed: 11/06/18 Never Smoked Cigarettes ETOH Use Denies alcohol use HAS HAD RARELY Tobacco Use Start: Unknown Patient has never smoked Recreational Drug Use Never Used Drugs Allergies, Adverse Reactions, Alerts Active Allergies Reaction Severity Comments Date Risperidone 11/28/2012 Montelukast 06/25/2015 Benadryl 01/27/2017 Clindamycin 01/27/2017 Wellbutrin 01/27/2017 Inactive Allergies NKDA 04/17/2012 Medications Active Medications SIG Qnty Indications Ordering Date Provider Fluticasone Propionate [place] 1 [place] 16gm Karla Harmon, 07/28/2018 In Each Nostril 50mcg/Act Suspension Once Daily Depakote ER 3 tabs in in 150tabs Karla Harmon, 09/07/2017 500mg Tablets the morning and MD ER 24HR 2 tabs at bedtime. new dose 10/27 Ibuprofen take one tablet Karla Harmon, 01/27/2017 600mg Tablets by mouth 3X/Day MD with food or snack as needed for pain Cyclobenzaprine HCL 1 by mouth 60tabs Karla Harmon, 01/27/2017 10mg three times a MD Tablets day as needed muscle spasms ER Doc Levothyroxine Sodium Take One Tablet 90tabs Karla Harmon, 10/03/2016 25mcg By Mouth Every MD Tablets Day Maximum Daily Dose = 1 Loradamed one a day 90tabs Karla Harmon, 09/10/2016 10mg Tablets Loxapine Succinate take one 30caps Karla Harmon, 11/24/2015 10mg capsule by Capsules mouth at bedtime Proair HFA inhale two 8.500gm J20.9 Karla Harmon, 02/24/2015 108(90Base) puffs by mouth MD mcg/Act Aerosol every 4 hours as needed Vitamin D3 Take One 100caps Karla Harmon, 2000Unit Capsule By Capsules Mouth Every Day Immunizations CPT Code Status Date Vaccine Lot # [id number] Given 05/05/2015 Influenza Vaccine (Fluzone) Age 3 And Older [id number] U-Td Given 06/13/2014 Td(Adult),Unspecified Vital Signs Date Vital Result Comment 11/06/2018 1:57pm BP Systolic Sitting Left Arm 128 mmHg BP Diastolic Sitting Left Arm 76 mmHg Body Temperature 99.0 F Heart Rate 76 /min Respiratory Rate 20 /min Height 68 inches 5'8" Weight 151.00 lb BMI (Body Mass Index) 23.0 kg/m2 BSA (Body Surface Area) 1.81 m2 [place] body weight in kilograms 70 kg 09/19/2018 2:47pm BP Systolic Sitting Right Arm 130 mmHg BP Diastolic Sitting Right Arm 86 mmHg Heart Rate 87 /min Height 68 inches 5'8" Weight 155.25 lb Pain Level 9 Due to Bump BMI (Body Mass Index) 23.6 kg/m2 BSA (Body Surface Area) 1.84 m2 [place] body weight in kilograms 70 kg O2 % BldC Oximetry 97 % Results Test Acquired Date Facility Test Result H/L Range Note Aot Request 03/20/2019 [facility] Aot Request Test(s) added 1, 2 [address] [place] [id number] [phone] Tests to be added: depakote CBC W/Automated 03/20/2019 [facility] White Blood 6.9 K/uL Normal 3.4-10.[address] [place] [address] [phone] Red Blood Count 4.79 M/uL Normal 4.20-5.80 Hemoglobin 14.7 gm/dL Normal 12.8-17.0 Hematocrit 43.9 % Normal 38.0-48.0 Mean Cell Volume 91.6 fl Normal 80.0-96.0 Mean Corpuscular HGB 30.7 pg Normal 27.0-33.0 Mean Corpuscular HGB Conc 33.5 g/dL Normal 31.7-36.0 Platelet Count 241 K/uL Normal 155-360 Red Cell Distri Width SD 43.4 fl Normal 36-51 Red Cell Distri Width %CV 12.8 % Normal 11.6-15.8 Mean Platelet Volume 11.0 fl High 6.6-10.6 Neut% 46.6 % Normal 33.0-73.0 Lymph % 42.2 % High 20.0-42.0 Wilcox % 9.3 % Normal 0.0-10.0 Eo% 0.9 % Normal 0.0-6.6 Bas% 0.6 % Normal 0.0-1.1 Immature Grans 0.4 % Normal 0.0-5.0 NRBC % 0.0 /100WBC < 10/ 100 WBC Neut# 3.20 K/uL Normal 1.8-7.0 Lymph # 2.90 K/uL Normal 1.0-4.0 Wilcox # 0.64 K/uL Normal 0.0-0.8 Eos # 0.06 K/uL Normal 0.0-0.5 Baso # 0.04 K/uL Normal 0.0-0.1 Immature Grans Absolute 0.03 K/uL NRBC # 0.00 K/uL Ua RFX Micro & 03/20/2019 [facility] Urine Color Colorless Yellow Culture II [address] [place] [address] [phone] Urine Clarity Clear Clear Urine Glucose - Dipstick NEGATIVE mg/dL Negative Urine Bilirubin - Dipstick NEGATIVE Negative Urine Ketone NEGATIVE mg/dL Negative Urine Specific Shanks 1.016 Normal 1.010-1.030 Urine Blood NEGATIVE Negative Urine PH 7.0 Normal 6.5-7.5 Urine Protein - Dipstick NEGATIVE mg/dL Negative Urine Urobilinogen - Dipstick < 2.0 mg/dL < 2.0 Urine Nitrite - Dipstick NEGATIVE Negative Urine Leuk Esterase NEGATIVE Negative Source: URINE, CLEAN CAT <SEE NOTE> 3 Drugs Of 03/20/2019 [facility] Amphetamines (Urine) Negative Abuse-Urine Screen [address] [address] [phone] Barbiturates (Urine) Negative Benzodiazepines (Urine) Negative Cannabinoids (Urine) Negative Cocaine Metabolite (Urine) Negative Methadone (Urine) Negative Opiates (Urine) Negative Urine Cutoffs * 4 Laboratory test 03/20/2019 [facility] Salicylate < 1.7 mg/dL < 15.0 5 finding [address] [place], [place] [id number] [phone] Acetaminophen < 2.0 ug/mL Low 10.0-30.0 6 Ethyl Alcohol < 3.0 mg/dL Comprehensive Metabolic 03/20/2019 [facility] Glucose 109 mg/dL High 74-106 Panel [address] [place] [address] [phone] BUN 16 mg/dL Normal 7-18 Creatinine 1.0 mg/dL Normal 0.6-1.3 Glom Filtration Rate, Estimate >60 mL/min >60 If >60 mL/min >60 7 BUN/Creat 16.0 ratio Sodium 138 mmol/L Normal 136-145 Potassium 4.0 mmol/L Normal 3.5-5.1 Chloride 107 mmol/L Normal 98-107 Carbon Dioxide 27 mmol/L Normal 21-32 Anion Gap 4 mEq/L Low 8-16 Calcium 8.3 mg/dL Low 8.5-10.1 Total Protein 7.3 g/dL Normal 6.4-8.2 Albumin 3.9 g/dL Normal 3.4-5.0 Globulin 3.4 g/dL Normal 1.9-4.3 Alb/Glob 1.1 ratio Bilirubin,Total 0.4 mg/dL Normal 0.2-1.0 Sgot/Ast 9 U/L Low 15-37 8 SGPT/Alt 19 U/L Normal 12-78 Alkaline Phosphatase 60 U/L Normal 45-117 Laboratory test 03/20/2019 [facility] TSH Reflex 1.16 Normal 0.30-4.[address] FT4 and/or uIU/[place] [address] FT3 [phone] Valproic Acid 75.7 ug/mL Normal 50.0-100.0 Drugs Of 03/05/2019 [facility] Amphetamines (Urine) Negative Abuse-Urine Screen [address] [facility] [address] [place] [address] [phone] Barbiturates (Urine) Negative Benzodiazepines (Urine) Negative Cannabinoids (Urine) Negative Cocaine Metabolite (Urine) Negative Methadone (Urine) Negative Opiates (Urine) Negative Urine Cutoffs * 9 Ua RFX Micro & 03/03/2019 [facility] Urine Color Light-Yellow Yellow 10 Culture II [address] [place] [address] [phone] Urine Clarity Clear Clear Urine Glucose - Dipstick NEGATIVE mg/dL Negative Urine Bilirubin - Dipstick NEGATIVE Negative Urine Ketone NEGATIVE mg/dL Negative Urine Specific Shanks 1.013 Normal 1.010-1.030 Urine Blood NEGATIVE Negative Urine PH 5.5 Low 6.5-7.5 Urine Protein - Dipstick NEGATIVE mg/dL Negative Urine Urobilinogen - Dipstick < 2.0 mg/dL < 2.0 Urine Nitrite - Dipstick NEGATIVE Negative Urine Leuk Esterase NEGATIVE Negative Source: URINE, CLEAN CAT <SEE NOTE> 11 Drugs Of 03/03/2019 [facility] Amphetamines (Urine) Negative Abuse-Urine Screen [address] [facility] [address] [place] [address] [phone] Barbiturates (Urine) Negative Benzodiazepines (Urine) Negative Cannabinoids (Urine) Negative Cocaine Metabolite (Urine) Negative Methadone (Urine) Negative Opiates (Urine) Negative Urine Cutoffs * 12 Laboratory test 01/30/2019 [facility] TSH Reflex 2.36 Normal 0.30-4.[address] FT4 and/or uIU/[place] [address] FT3 [phone] Acetaminophen < 2.0 ug/mL Low 10.0-30.0 14 Ethyl Alcohol < 3.0 mg/dL Comprehensive 01/30/2019 [facility] Glucose 103 mg/dL Normal 74-106 Metabolic Panel [address] [place] [address] [phone] BUN 20 mg/dL High 7-18 Creatinine 0.8 mg/dL Normal 0.6-1.3 Glom Filtration Rate, Estimate >60 mL/min >60 If >60 mL/min >60 15 BUN/Creat 25.0 ratio Sodium 138 mmol/L Normal 136-145 Potassium 3.7 mmol/L Normal 3.5-5.1 Chloride 104 mmol/L Normal 98-107 Carbon Dioxide 29 mmol/L Normal 21-32 Anion Gap 5 mEq/L Low 8-16 Calcium 8.9 mg/dL Normal 8.5-10.1 Total Protein 7.6 g/dL Normal 6.4-8.2 Albumin 4.2 g/dL Normal 3.4-5.0 Globulin 3.4 g/dL Normal 1.9-4.3 Alb/Glob 1.2 ratio Bilirubin,Total 0.5 mg/dL Normal 0.2-1.0 Sgot/Ast 13 U/L Low 15-37 16 SGPT/Alt 22 U/L Normal 12-78 Alkaline Phosphatase 62 U/L Normal 45-117 Drugs Of 01/30/2019 [facility] Amphetamines (Urine) Negative Abuse-Urine Screen [address] [id number] [phone] Barbiturates (Urine) Negative Benzodiazepines (Urine) Negative Cannabinoids (Urine) Negative Cocaine Metabolite (Urine) Negative Methadone (Urine) Negative Opiates (Urine) Negative Urine Cutoffs * 17 Laboratory test 01/30/2019 [facility] Salicylate < 1.7 mg/dL Low 2.8-20.0 18 finding [address] [place] [address] [phone] Ua RFX Micro & 01/30/2019 [facility] Urine Color Yellow Yellow Culture II [address] [place], [place] [id number] [phone] Urine Clarity Cloudy Clear Urine Glucose - Dipstick NEGATIVE mg/dL Negative Urine Bilirubin - Dipstick NEGATIVE Negative Urine Ketone TRACE mg/dL Negative Urine Specific Shanks 1.022 Normal 1.010-1.030 Urine Blood NEGATIVE 0-2 Urine PH 7.5 Normal 6.5-7.5 Urine Protein - Dipstick NEGATIVE mg/dL Negative Urine Urobilinogen - Dipstick < 2.0 mg/dL < 2.0 Urine Nitrite - Dipstick NEGATIVE Negative Urine Leuk Esterase NEGATIVE Negative Source: URINE, CLEAN CAT <SEE NOTE> 19 CBC W/Automated 01/30/2019 [facility] White Blood 7.1 K/uL Normal 3.4-10.[address] [place] [address] [phone] Red Blood Count 4.96 M/uL Normal 4.20-5.80 Hemoglobin 15.0 gm/dL Normal 12.8-17.0 Hematocrit 45.0 % Normal 38.0-48.0 Mean Cell Volume 90.7 fl Normal 80.0-96.0 Mean Corpuscular HGB 30.2 pg Normal 27.0-33.0 Mean Corpuscular HGB Conc 33.3 g/dL Normal 31.7-36.0 Platelet Count 216 K/uL Normal 155-360 Red Cell Distri Width SD 43.7 fl Normal 36-51 Red Cell Distri Width %CV 13.2 % Normal 11.6-15.8 Mean Platelet Volume 11.4 fl High 6.6-10.6 Neut% 55.6 % Normal 33.0-73.0 Lymph % 33.9 % Normal 20.0-42.0 Wilcox % 8.6 % Normal 0.0-10.0 Eo% 1.1 % Normal 0.0-6.6 Bas% 0.4 % Normal 0.0-1.1 Immature Grans 0.4 % Normal 0.0-5.0 NRBC % 0.0 /100WBC < 10/ 100 WBC Neut# 3.94 K/uL Normal 1.8-7.0 Lymph # 2.40 K/uL Normal 1.0-4.0 Wilcox # 0.61 K/uL Normal 0.0-0.8 Eos # 0.08 K/uL Normal 0.0-0.5 Baso # 0.03 K/uL Normal 0.0-0.1 Immature Grans Absolute 0.03 K/uL NRBC # 0.00 K/uL Drugs Of 01/21/2019 [facility] Urine * 20, 21 Abuse-Urine [address] Cutoffs Screen 7 [place] [address] [phone] Laboratory test 01/04/2019 [facility] Rapid Strep Negative Negative 22, [address] A Antigen [place], [place] [id number] [phone] Throat Strep Screen NO BETA STREPTOC <SEE NOTE> 24 Drugs Of 12/15/2018 [facility] Amphetamines Negative 25 Abuse-Urine Screen [address] (Urine) 7 [place], [place] [id number] [phone] Barbiturates (Urine) Negative Benzodiazepines (Urine) Negative Cannabinoids (Urine) Negative Cocaine Metabolite (Urine) Negative Methadone (Urine) Negative Opiates (Urine) Negative Urine Cutoffs * 26 Laboratory test 12/14/2018 [facility] TSH Reflex 1.06 Normal 0.30-4.[address] FT4 and/or uIU/[place] [address] FT3 [phone] Comprehensive 12/14/2018 [facility] Glucose 89 mg/dL Normal 74-106 Metabolic Panel [address] [place] [address] [phone] BUN 13 mg/dL Normal 7-18 Creatinine 0.7 mg/dL Normal 0.6-1.3 Glom Filtration Rate, Estimate >60 mL/min >60 If >60 mL/min >60 27 BUN/Creat 18.5 ratio Sodium 141 mmol/L Normal 136-145 Potassium 4.0 mmol/L Normal 3.5-5.1 Chloride 107 mmol/L Normal 98-107 Carbon Dioxide 27 mmol/L Normal 21-32 Anion Gap 7 mEq/L Low 8-16 Calcium 8.4 mg/dL Low 8.5-10.1 Total Protein 7.3 g/dL Normal 6.4-8.2 Albumin 4.0 g/dL Normal 3.4-5.0 Globulin 3.3 g/dL Normal 1.9-4.3 Alb/Glob 1.2 ratio Bilirubin,Total 0.6 mg/dL Normal 0.2-1.0 Sgot/Ast 8 U/L Low 15-37 28 SGPT/Alt 14 U/L Normal 12-78 Alkaline Phosphatase 54 U/L Normal 45-117 Ua RFX Micro & Culture 12/14/2018 [facility] Urine Color YELLOW Yellow II [address] [place] [address] [phone] Urine Clarity SL CLOUDY Clear Urine Glucose - Dipstick NEGATIVE mg/dL Negative Urine Bilirubin - Dipstick NEGATIVE Negative Urine Ketone NEGATIVE mg/dL Negative Urine Specific Shanks 1.020 Normal 1.010-1.030 Urine Blood NEGATIVE 0-2 Urine PH 7.5 Normal 6.5-7.5 Urine Protein - Dipstick NEGATIVE mg/dL Negative Urine Urobilinogen - Dipstick 0.2 E.U./dL Normal 0.2-1.0 Urine Nitrite - Dipstick NEGATIVE Negative Urine Leuk Esterase NEGATIVE Negative Source: URINE, CLEAN CAT <SEE NOTE> 29 CBC W/Automated 12/14/2018 [facility] White Blood 7.4 K/uL Normal 3.4-10.[address] [place] [address] [phone] Red Blood Count 4.66 M/uL Normal 4.20-5.80 Hemoglobin 14.1 gm/dL Normal 12.8-17.0 Hematocrit 41.8 % Normal 38.0-48.0 Mean Cell Volume 89.7 fl Normal 80.0-96.0 Mean Corpuscular HGB 30.3 pg Normal 27.0-33.0 Mean Corpuscular HGB Conc 33.7 g/dL Normal 31.7-36.0 Platelet Count 244 K/uL Normal 155-360 Red Cell Distri Width SD 46.4 fl Normal 36-51 Red Cell Distri Width %CV 14.0 % Normal 11.6-15.8 Mean Platelet Volume 10.4 fl Normal 6.6-10.6 Neut% 48.1 % Normal 33.0-73.0 Lymph % 41.8 % Normal 20.0-42.0 Wilcox % 8.5 % Normal 0.0-10.0 Eo% 0.8 % Normal 0.0-6.6 Bas% 0.5 % Normal 0.0-1.1 Immature Grans 0.3 % Normal 0.0-5.0 NRBC % 0.0 /100WBC < 10/ 100 WBC Neut# 3.58 K/uL Normal 1.8-7.0 Lymph # 3.11 K/uL Normal 1.0-4.0 Wilcox # 0.63 K/uL Normal 0.0-0.8 Eos # 0.06 K/uL Normal 0.0-0.5 Baso # 0.04 K/uL Normal 0.0-0.1 Immature Grans Absolute 0.02 K/uL NRBC # 0.00 K/uL Laboratory test 12/14/2018 [facility] Acetaminophen < 2.0 Low 10.0-30.0 [address] ug/[place] [address] [phone] Ethyl Alcohol < 3.0 mg/dL Laboratory 12/14/2018 [facility] Salicylate < 1.7 mg/dL Low 2.8-20.0 31 test finding [address] [place] [address] [phone] Drugs Of 12/14/2018 [facility] Amphetamines Negative Abuse-Urine [address] (Urine) Screen 7 [place] [address] [phone] Barbiturates (Urine) Negative Benzodiazepines (Urine) Negative Cannabinoids (Urine) Negative Cocaine Metabolite (Urine) Negative Methadone (Urine) Negative Opiates (Urine) Negative Urine Cutoffs * 32 Ua RFX Micro & Culture 12/12/2018 [facility] Urine Color YELLOW Yellow II [address] [place] [address] [phone] Urine Clarity SL CLOUDY Clear Urine Glucose - Dipstick NEGATIVE mg/dL Negative Urine Bilirubin - Dipstick NEGATIVE Negative Urine Ketone NEGATIVE mg/dL Negative Urine Specific Shanks >= 1.030 Normal 1.010-1.030 Urine Blood NEGATIVE 0-2 Urine PH 5.0 Low 6.5-7.5 Urine Protein - Dipstick NEGATIVE mg/dL Negative Urine Urobilinogen - Dipstick 0.2 E.U./dL Normal 0.2-1.0 Urine Nitrite - Dipstick NEGATIVE Negative Urine Leuk Esterase NEGATIVE Negative Source: URINE, CLEAN CAT <SEE NOTE> 33 Drugs Of 12/12/2018 [facility] Amphetamines (Urine) Negative Abuse-Urine Screen [address] [place] [address] [phone] Barbiturates (Urine) Negative Benzodiazepines (Urine) Negative Cannabinoids (Urine) Negative Cocaine Metabolite (Urine) Negative Methadone (Urine) Negative Opiates (Urine) Negative Urine Cutoffs * 34 CBC W/Automated 11/27/2018 [facility] White Blood 7.1 K/uL Normal 3.4-10.[address] [place] [address] [phone] Red Blood Count 4.70 M/uL Normal 4.20-5.80 Hemoglobin 14.1 gm/dL Normal 12.8-17.0 Hematocrit 42.0 % Normal 38.0-48.0 Mean Cell Volume 89.4 fl Normal 80.0-96.0 Mean Corpuscular HGB 30.0 pg Normal 27.0-33.0 Mean Corpuscular HGB Conc 33.6 g/dL Normal 31.7-36.0 Platelet Count 249 K/uL Normal 155-360 Red Cell Distri Width SD 44.1 fl Normal 36-51 Red Cell Distri Width %CV 13.4 % Normal 11.6-15.8 Mean Platelet Volume 10.9 fl High 6.6-10.6 Neut% 53.3 % Normal 33.0-73.0 Lymph % 35.9 % Normal 20.0-42.0 Wilcox % 8.4 % Normal 0.0-10.0 Eo% 1.1 % Normal 0.0-6.6 Bas% 0.7 % Normal 0.0-1.1 Immature Grans 0.6 % Normal 0.0-5.0 NRBC % 0.0 /100WBC < 10/ 100 WBC Neut# 3.80 K/uL Normal 1.8-7.0 Lymph # 2.56 K/uL Normal 1.0-4.0 Wilcox # 0.60 K/uL Normal 0.0-0.8 Eos # 0.08 K/uL Normal 0.0-0.5 Baso # 0.05 K/uL Normal 0.0-0.1 Immature Grans Absolute 0.04 K/uL NRBC # 0.00 K/uL Laboratory test 11/27/2018 [facility] Salicylate < 1.7 mg/dL Low 2.8-20.0 35 finding [address] [place] [address] [phone] Ua RFX Micro & 11/27/2018 [facility] Urine Color YELLOW Yellow Culture II [address] [place], [place] [id number] [phone] Urine Clarity CLEAR Clear Urine Glucose - Dipstick NEGATIVE mg/dL Negative Urine Bilirubin - Dipstick NEGATIVE Negative Urine Ketone NEGATIVE mg/dL Negative Urine Specific Shanks 1.015 Normal 1.010-1.030 Urine Blood NEGATIVE Negative Urine PH 7.0 Normal 6.5-7.5 Urine Protein - Dipstick NEGATIVE mg/dL Negative Urine Urobilinogen - Dipstick 0.2 E.U./dL Normal 0.2-1.0 Urine Nitrite - Dipstick NEGATIVE Negative Urine Leuk Esterase NEGATIVE Negative Source: URINE, CLEAN CAT <SEE NOTE> 36 Drugs Of 11/27/2018 [facility] Amphetamines (Urine) Negative Abuse-Urine Screen [address] [place] [address] [phone] Barbiturates (Urine) Negative Benzodiazepines (Urine) Negative Cannabinoids (Urine) Negative Cocaine Metabolite (Urine) Negative Methadone (Urine) Negative Opiates (Urine) Negative Urine Cutoffs * 37 Laboratory test 11/24/2018 [facility] Valproic 55.6 Normal 50.0-100.0 [address] Acid ug/[place] [address] [phone] Laboratory test 11/23/2018 [facility] TSH Reflex 1.01 Normal 0.30-4.[address] FT4 and/or uIU/[place] [address] FT3 [phone] Comprehensive 11/23/2018 [facility] Glucose 91 mg/dL Normal 74-106 Metabolic Panel [address] [place] [address] [phone] BUN 16 mg/dL Normal 7-18 Creatinine 0.9 mg/dL Normal 0.6-1.3 Glom Filtration Rate, Estimate >60 mL/min >60 If >60 mL/min >60 39 BUN/Creat 17.7 ratio Sodium 141 mmol/L Normal 136-145 Potassium 4.0 mmol/L Normal 3.5-5.1 Chloride 108 mmol/L High 98-107 Carbon Dioxide 26 mmol/L Normal 21-32 Anion Gap 7 mEq/L Low 8-16 Calcium 8.6 mg/dL Normal 8.5-10.1 Total Protein 7.8 g/dL Normal 6.4-8.2 Albumin 4.0 g/dL Normal 3.4-5.0 Globulin 3.8 g/dL Normal 1.9-4.3 Alb/Glob 1.1 ratio Bilirubin,Total 0.5 mg/dL Normal 0.2-1.0 Sgot/Ast 11 U/L Low 15-37 40 SGPT/Alt 18 U/L Normal 12-78 Alkaline Phosphatase 57 U/L Normal 45-117 Drugs Of 11/23/2018 [facility] Amphetamines (Urine) Negative Abuse-Urine Screen [address] [place] [address] [phone] Barbiturates (Urine) Negative Benzodiazepines (Urine) Negative Cannabinoids (Urine) Negative Cocaine Metabolite (Urine) Negative Methadone (Urine) Negative Opiates (Urine) Negative Urine Cutoffs * 41 Laboratory test 11/23/2018 [facility] Acetaminophen < 2.0 Low 10.0-30.0 [address] ug/[place] [address] [phone] Ethyl Alcohol < 3.0 mg/dL Salicylate < 1.7 mg/dL Low 2.8-20.0 43 Act Partial 11/23/2018 [facility] Act Partial 30.8 seconds Normal 23.4-35.[address] [place] [address] [phone] Anticoagulant Therapy? Unknown Protime 11/23/2018 [facility] Protime 14.1 seconds Normal 12.0-14.[address] [place] [address] [phone] Inr 1.1 Normal 0.9-1.1 44 Anticoagulant Therapy? Unknown Ua RFX Micro & Culture 11/23/2018 [facility] Urine Color YELLOW Yellow II [address] [place] [address] [phone] Urine Clarity CLEAR Clear Urine Glucose - Dipstick NEGATIVE mg/dL Negative Urine Bilirubin - Dipstick NEGATIVE Negative Urine Ketone 15 mg/dL High Negative Urine Specific Shanks 1.010 Normal 1.010-1.030 Urine Blood NEGATIVE Negative Urine PH 6.5 Normal 6.5-7.5 Urine Protein - Dipstick NEGATIVE mg/dL Negative Urine Urobilinogen - Dipstick 1.0 E.U./dL Normal 0.2-1.0 Urine Nitrite - Dipstick NEGATIVE Negative Urine Leuk Esterase NEGATIVE Negative Source: URINE, CLEAN CAT <SEE NOTE> 45 CBC W/Automated 11/23/2018 [facility] White Blood 7.1 K/uL Normal 3.4-10.[address] [place] [address] [phone] Red Blood Count 4.77 M/uL Normal 4.20-5.80 Hemoglobin 14.2 gm/dL Normal 12.8-17.0 Hematocrit 42.7 % Normal 38.0-48.0 Mean Cell Volume 89.5 fl Normal 80.0-96.0 Mean Corpuscular HGB 29.8 pg Normal 27.0-33.0 Mean Corpuscular HGB Conc 33.3 g/dL Normal 31.7-36.0 Platelet Count 256 K/uL Normal 155-360 Red Cell Distri Width SD 44.6 fl Normal 36-51 Red Cell Distri Width %CV 13.5 % Normal 11.6-15.8 Mean Platelet Volume 11.1 fl High 6.6-10.6 Neut% 51.1 % Normal 33.0-73.0 Lymph % 38.4 % Normal 20.0-42.0 Wilcox % 9.0 % Normal 0.0-10.0 Eo% 0.8 % Normal 0.0-6.6 Bas% 0.4 % Normal 0.0-1.1 Immature Grans 0.3 % Normal 0.0-5.0 NRBC % 0.0 /100WBC < 10/ 100 WBC Neut# 3.64 K/uL Normal 1.8-7.0 Lymph # 2.74 K/uL Normal 1.0-4.0 Wilcox # 0.64 K/uL Normal 0.0-0.8 Eos # 0.06 K/uL Normal 0.0-0.5 Baso # 0.03 K/uL Normal 0.0-0.1 Immature Grans Absolute 0.02 K/uL NRBC # 0.00 K/uL Anticoagulant Therapy? Unknown Drugs Of 11/20/2018 [facility] Amphetamines Negative 46 Abuse-Urine Screen [address] (Urine) [address] [place] [address] [phone] Barbiturates (Urine) POSITIVE Abnormal Benzodiazepines (Urine) Negative Cannabinoids (Urine) Negative Cocaine Metabolite (Urine) Negative Methadone (Urine) Negative Opiates (Urine) Negative Urine Cutoffs * 47 Routine Culture 11/19/2018 [facility] Gram Stain RARE GRAM POSITI 48, 49 W/ Gram Stain [address] <SEE NOTE> [place] [address] [phone] Aerobic Culture NO PATHOGENS ISO <SEE NOTE> 50 Urine Dipstick 11/06/2018 [facility] Ua Nitrite - Negative Ua Urobilinogen .2 0.2 - 1.0 E.U./dL Ua Protein - Negative Ua PH 6.5 6.5-7.5 Ua Blood - Negative Ua Specific Shanks 1.015 1.010-1.030 Ua Ketones - Negative Ua Bilirubin - Negative Ua Glucose - Negative CBC W/Automated 10/31/2018 [facility] White 7.1 K/uL Normal 3.4-10.5 [address] [place] [address] Count [phone] Red Blood Count 4.77 M/uL Normal 4.20-5.80 Hemoglobin 13.8 gm/dL Normal 12.8-17.0 Hematocrit 42.6 % Normal 38.0-48.0 Mean Cell Volume 89.3 fl Normal 80.0-96.0 Mean Corpuscular HGB 28.9 pg Normal 27.0-33.0 Mean Corpuscular HGB Conc 32.4 g/dL Normal 31.7-36.0 Platelet Count 249 K/uL Normal 155-360 Red Cell Distri Width SD 43.0 fl Normal 36-51 Red Cell Distri Width %CV 13.0 % Normal 11.6-15.8 Mean Platelet Volume 10.8 fl High 6.6-10.6 Neut% 52.3 % Normal 33.0-73.0 Lymph % 37.4 % Normal 20.0-42.0 Wilcox % 8.6 % Normal 0.0-10.0 Eo% 1.0 % Normal 0.0-6.6 Bas% 0.6 % Normal 0.0-1.1 Immature Grans 0.1 % Normal 0.0-5.0 NRBC % 0.0 /100WBC < 10/ 100 WBC Neut# 3.73 K/uL Normal 1.8-7.0 Lymph # 2.66 K/uL Normal 1.0-4.0 Wilcox # 0.61 K/uL Normal 0.0-0.8 Eos # 0.07 K/uL Normal 0.0-0.5 Baso # 0.04 K/uL Normal 0.0-0.1 Immature Grans Absolute 0.01 K/uL NRBC # 0.00 K/uL Comprehensive Metabolic 10/31/2018 [facility] Glucose 114 mg/dL High 74-106 Panel [address] [place] [address] [phone] BUN 15 mg/dL Normal 7-18 Creatinine 0.7 mg/dL Normal 0.6-1.3 Glom Filtration Rate, Estimate >60 mL/min >60 If >60 mL/min >60 52 BUN/Creat 21.4 ratio Sodium 141 mmol/L Normal 136-145 Potassium 3.9 mmol/L Normal 3.5-5.1 Chloride 105 mmol/L Normal 98-107 Carbon Dioxide 28 mmol/L Normal 21-32 Anion Gap 8 mEq/L Normal 8-16 Calcium 7.9 mg/dL Low 8.5-10.1 Total Protein 6.9 g/dL Normal 6.4-8.2 Albumin 3.4 g/dL Normal 3.4-5.0 Globulin 3.5 g/dL Normal 1.9-4.3 Alb/Glob 1.0 ratio Bilirubin,Total 0.4 mg/dL Normal 0.2-1.0 Sgot/Ast 7 U/L Low 15-37 53 SGPT/Alt 15 U/L Normal 12-78 Alkaline Phosphatase 62 U/L Normal 45-117 Laboratory test finding 10/31/2018 [facility] Troponin-I < 0.015 ng/mL [address] [place] [address] [phone] 1 E 2 Tests: depakote Instructions: 3 URINE, CLEAN CATCH 4 URINE SPECIMENS [...] SPECIMENS ARE HELD FOR 72 HOURS. 5 Analgesic: < 10 mg/dL Anti-Inflammatory: 15-30 mg/dL 6 Acetaminophen concentration >150 ug/mL at four hours after ingestion and 50.0 ug/mL at twelve hours after ingestion are often associated with toxic reactions. 7 Note: Persistent reduction for 3 months [...] normal populations. Clinical correlation is suggested. 9 URINE SPECIMENS ARE SCREENED AT THE LISTED CUTOFFS DRUG CLASS INITIAL TEST LEVEL Amphetamines 1000 ng/mL Barbiturates 200 ng/mL Benzodiazepines 200 ng/mL Cannabinoids 50 ng/mL Cocaine Metabolite 300 ng/mL Methadone 300 ng/mL Opiates 300 ng/mL Any PRESUMPTIVE POSITIVE findings are UNCONFIRMED. Confirmatory testing is suggested if findings are unexpected. Please contact laboratory if confirmatory testing is desired. SPECIMENS ARE HELD FOR 72 HOURS. 10 THREATENED TO HARM SELF 11 URINE, CLEAN CATCH 12 URINE SPECIMENS ARE SCREENED AT THE LISTED CUTOFFS DRUG CLASS INITIAL TEST LEVEL Amphetamines 1000 ng/mL Barbiturates 200 ng/mL Benzodiazepines 200 ng/mL Cannabinoids 50 ng/mL Cocaine Metabolite 300 ng/mL Methadone 300 ng/mL Opiates 300 ng/mL Any PRESUMPTIVE POSITIVE findings are UNCONFIRMED. Confirmatory testing is suggested if findings are unexpected. Please contact laboratory if confirmatory testing is desired. SPECIMENS ARE HELD FOR 72 HOURS. 13 SI 14 Acetaminophen concentration >150 ug/mL at four hours after ingestion and 50.0 ug/mL at twelve hours after ingestion are often associated with toxic reactions. 15 Note: Persistent reduction for 3 months or more in an eGFR <60 mL/min/1.73 m2 defines CKD. Patients with eGFR values >/=60 mL/min/1.73 m2 may also have CKD if evidence of persistent proteinuria is present. The original MDRD equation for estimated GFR is not valid for patients less than 18 years of age. Additional information may be found at www.kdoqi.org. 16 Values below the stated reference ranges of AST and ALT can be seen in normal populations. Clinical correlation is suggested. 17 URINE SPECIMENS ARE SCREENED AT THE LISTED CUTOFFS DRUG CLASS INITIAL TEST LEVEL Amphetamines 1000 ng/mL Barbiturates 200 ng/mL Benzodiazepines 200 ng/mL Cannabinoids 50 ng/mL Cocaine Metabolite 300 ng/mL Methadone 300 ng/mL Opiates 300 ng/mL Any PRESUMPTIVE POSITIVE findings are UNCONFIRMED. Confirmatory testing is suggested if findings are unexpected. Please contact laboratory if confirmatory testing is desired. SPECIMENS ARE HELD FOR 72 HOURS. 18 THERAPEUTIC RANGE: 15-30 mg/dL POTENTIAL TOXICITY VARIES WITH TIME FROM INGESTION. PLEASE CONSULT APPROPRIATE NOMOGRAM. 19 URINE, CLEAN CATCH 20 MHE 21 URINE SPECIMENS ARE SCREENED AT THE LISTED CUTOFFS DRUG CLASS INITIAL TEST LEVEL Amphetamines 1000 ng/mL Barbiturates 200 ng/mL Benzodiazepines 200 ng/mL Cannabinoids 50 ng/mL Cocaine Metabolite 300 ng/mL Methadone 300 ng/mL Opiates 300 ng/mL Any PRESUMPTIVE POSITIVE findings are UNCONFIRMED. Confirmatory testing is suggested if findings are unexpected. Please contact laboratory if confirmatory testing is desired. SPECIMENS ARE HELD FOR 72 HOURS. 22 ABDOMINAL PAIN 23 Infection due to Strep A cannot be ruled-out because the antigen present in the sample may be below the detection limit of the test. Culture confirmation of negative result is in progress Method: Alma Johns Veritor Chromatographic immunoassay 24 NO BETA STREPTOCOCCI ISOLATED 25 EVAL 26 URINE SPECIMENS ARE SCREENED AT THE LISTED CUTOFFS DRUG CLASS INITIAL TEST LEVEL Amphetamines 1000 ng/mL Barbiturates 200 ng/mL Benzodiazepines 200 ng/mL Cannabinoids 50 ng/mL Cocaine Metabolite 300 ng/mL Methadone 300 ng/mL Opiates 300 ng/mL Any PRESUMPTIVE POSITIVE findings are UNCONFIRMED. Confirmatory testing is suggested if findings are unexpected. Please contact laboratory if confirmatory testing is desired. SPECIMENS ARE HELD FOR 72 HOURS. 27 Note: Persistent reduction for 3 months or more in an eGFR <60 mL/min/1.73 m2 defines CKD. Patients with eGFR values >/=60 mL/min/1.73 m2 may also have CKD if evidence of persistent proteinuria is present. The original MDRD equation for estimated GFR is not valid for patients less than 18 years of age. Additional information may be found at www.kdoqi.org. 28 Values below the stated reference ranges of AST and ALT can be seen in normal populations. Clinical correlation is suggested. 29 URINE, CLEAN CATCH 30 Acetaminophen concentration >150 ug/mL at four hours after ingestion and 50.0 ug/mL at twelve hours after ingestion are often associated with toxic reactions. 31 THERAPEUTIC RANGE: 15-30 mg/dL POTENTIAL TOXICITY VARIES WITH TIME FROM INGESTION. PLEASE CONSULT APPROPRIATE NOMOGRAM. 32 URINE SPECIMENS ARE SCREENED AT THE [...] SPECIMENS ARE HELD FOR 72 HOURS. 33 URINE, CLEAN CATCH 34 URINE SPECIMENS ARE SCREENED AT THE LISTED CUTOFFS DRUG CLASS INITIAL TEST LEVEL Amphetamines 1000 ng/mL Barbiturates 200 ng/mL Benzodiazepines 200 ng/mL Cannabinoids 50 ng/mL Cocaine Metabolite 300 ng/mL Methadone 300 ng/mL Opiates 300 ng/mL Any PRESUMPTIVE POSITIVE findings are UNCONFIRMED. Confirmatory testing is suggested if findings are unexpected. Please contact laboratory if confirmatory testing is desired. SPECIMENS ARE HELD FOR 72 HOURS. 35 THERAPEUTIC RANGE: 15-30 mg/dL POTENTIAL TOXICITY VARIES WITH TIME FROM INGESTION. PLEASE CONSULT APPROPRIATE NOMOGRAM. 36 URINE, CLEAN CATCH 37 URINE SPECIMENS ARE SCREENED AT THE LISTED CUTOFFS DRUG CLASS INITIAL TEST LEVEL Amphetamines 1000 ng/mL Barbiturates 200 ng/mL Benzodiazepines 200 ng/mL Cannabinoids 50 ng/mL Cocaine Metabolite 300 ng/mL Methadone 300 ng/mL Opiates 300 ng/mL Any PRESUMPTIVE POSITIVE findings are UNCONFIRMED. Confirmatory testing is suggested if findings are unexpected. Please contact laboratory if confirmatory testing is desired. SPECIMENS ARE HELD FOR 72 HOURS. 38 PSYCH SERVICES 39 Note: Persistent reduction for 3 months or more in an eGFR <60 mL/min/1.73 m2 defines CKD. Patients with eGFR values >/=60 mL/min/1.73 m2 may also have CKD if evidence of persistent proteinuria is present. The original MDRD equation for estimated GFR is not valid for patients less than 18 years of age. Additional information may be found at www.kdoqi.org. 40 Values below the stated reference ranges of AST and ALT can be seen in normal populations. Clinical correlation is suggested. 41 URINE SPECIMENS ARE SCREENED AT THE LISTED CUTOFFS DRUG CLASS INITIAL TEST LEVEL Amphetamines 1000 ng/mL Barbiturates 200 ng/mL Benzodiazepines 200 ng/mL Cannabinoids 50 ng/mL Cocaine Metabolite 300 ng/mL Methadone 300 ng/mL Opiates 300 ng/mL Any PRESUMPTIVE POSITIVE findings are UNCONFIRMED. Confirmatory testing is suggested if findings are unexpected. Please contact laboratory if confirmatory testing is desired. SPECIMENS ARE HELD FOR 72 HOURS. 42 Acetaminophen concentration >150 ug/mL at four hours after ingestion and 50.0 ug/mL at twelve hours after ingestion are often associated with toxic reactions. 43 THERAPEUTIC RANGE: 15-30 mg/dL POTENTIAL TOXICITY VARIES WITH TIME FROM INGESTION. PLEASE CONSULT APPROPRIATE NOMOGRAM. 44 THERAPEUTIC INR RANGE: 2.0 - 3.0 DVT, Pulmonary embolus, prophylaxis against venous thrombosis or systemic embolization in high risk patients. 2.5 - 3.5 Mechanical heart valves 45 URINE, CLEAN CATCH 46 EVAL 47 URINE SPECIMENS ARE SCREENED AT THE LISTED CUTOFFS DRUG CLASS INITIAL TEST LEVEL Amphetamines 1000 ng/mL Barbiturates 200 ng/mL Benzodiazepines 200 ng/mL Cannabinoids 50 ng/mL Cocaine Metabolite 300 ng/mL Methadone 300 ng/mL Opiates 300 ng/mL Any PRESUMPTIVE POSITIVE findings are UNCONFIRMED. Confirmatory testing is suggested if findings are unexpected. Please contact laboratory if confirmatory testing is desired. SPECIMENS ARE HELD FOR 72 HOURS. 48 BOIL ON BACK OF NECK? 49 RARE GRAM POSITIVE COCCI 50 NO PATHOGENS ISOLATED 51 CHEST PAIN 52 Note: Persistent reduction for 3 months [...] normal populations. Clinical correlation is suggested. 54 0.0 - 0.045 ng/mL: Normal 0.046 - 0.5 ng/mL: Suggestive 0.6 - 1.5 ng/mL: Consistent Procedures Description No Information Available Medical Devices Description No Information Available Encounters Type Date Location Provider Dx Diagnosis Office Visit 11/06/2018 Family [facility] Karla Harmon, Z00.00 Encntr for general 2:45p Jaswant AVILA MD adult medical exam w/o abnormal findings Z00.00 Encntr for general adult medical exam w/o abnormal findings G40.909 Epilepsy, unsp, not intractable, without status epilepticus G40.909 Epilepsy, unsp, not intractable, without status epilepticus F43.21 Adjustment disorder with depressed mood F43.21 Adjustment disorder with depressed mood 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 depressed, mild 11/27/2018 F43.21 Adjustment disorder with depressed mood Yolanda Sage, NPP, [employer] 11/27/2018 R45.851 Suicidal ideations Carlos Damon M.D. 11/27/2018 F70 Mild intellectual disabilities Yolanda Sage, NPP, [employer] 11/27/2018 F12.29 Cannabis dependence with unspecified Calros Damon M.D. cannabis-induced disorder 11/27/2018 F63.9 Impulse disorder, unspecified Yolanda Sage, NPP, [employer] 11/26/2018 F31.31 Bipolar disorder, current episode Carlos Damon M.D. depressed, mild 11/26/2018 R45.851 Suicidal ideations Carlos Damon M.D. 11/26/2018 F43.21 Adjustment disorder with depressed mood Carlos Damon M.D. 11/26/2018 F12.29 Cannabis dependence with unspecified Carlos Damon M.D. cannabis-induced disorder 11/26/2018 F70 Mild intellectual disabilities Carlos Damon M.D. 11/26/2018 F63.9 Impulse disorder, unspecified Carlos Damon M.D. 11/25/2018 F31.31 Bipolar disorder, current episode Carlos Damon M.D. depressed, mild 11/25/2018 R45.851 Suicidal ideations Carlos Damon M.D. 11/25/2018 F43.21 Adjustment disorder with depressed mood Carlos Damon M.D. 11/25/2018 F70 Mild intellectual disabilities Carlos Damon M.D. 11/25/2018 F12.29 Cannabis dependence with unspecified Carlos Damon M.D. cannabis-induced disorder 11/25/2018 F63.9 Impulse disorder, unspecified Carlos Damon M.D. 11/24/2018 R45.851 Suicidal ideations Yolanda Sage, NPP, [employer] 11/24/2018 F43.21 Adjustment disorder with depressed mood Yolanda SageSpike, NPP, [employer] 11/24/2018 F70 Mild intellectual disabilities Chu Yolanda EtienneSpike, NPP, [employer] 11/24/2018 F63.9 Impulse disorder, unspecified Chu Yolanda E., NPP, [employer] 11/06/2018 Z00.00 Encounter for general adult medical Karla Harmon MD examination without abnormal findings 11/06/2018 Z00.00 Encounter for general adult medical Karla Harmon MD examination without abnormal findings 11/06/2018 G40.909 Epilepsy, unspecified, not intractable, Karla Harmon MD without status epilepticus 11/06/2018 G40.909 Epilepsy, unspecified, not intractable, Karla Harmon MD without status epilepticus 11/06/2018 F43.21 Adjustment disorder with depressed mood Karla Harmon MD 11/06/2018 F43.21 Adjustment disorder with depressed mood Karla Harmon MD 11/06/2018 F70 Mild intellectual disabilities Karla Harmon MD 11/06/2018 F70 Mild intellectual disabilities Karla Harmon MD 11/06/2018 J45.909 Unspecified asthma, uncomplicated Karla Harmon MD Plan of Treatment 11/06/2018 - Karla Harmon MDZ00.00 Encounter for general adult medical examination without abnormal findingsComments:CONTINUE REGULAR EXERCISE; MAINTAIN WEIGHT.USE SUNSCREEN OR COVER UP TO AVOID SUNBURN AND SKIN CANCER; DISCUSSED ADEQUATE CALCIUM IN DIET;IMMUNIZATIONS: GET YEARLY FLU SHOT;LABS MOSTLY UP TO DATE WITH ER VISITS;ORDERED CHOLESTEROLHEALTH CARE PROXY : STEP VENIXVR73.00 Encounter for general adult medical examination without abnormal findingsComments:CONTINUE REGULAR EXERCISE; MAINTAIN WEIGHT.USE SUNSCREEN OR COVER UP TO AVOID SUNBURN AND SKIN CANCER;DISCUSSED ADEQUATE CALCIUM IN DIET; IMMUNIZATIONS: GET YEARLY FLU SHOT;LABS MOSTLY UP TO DATE WITH ER VISITS; ORDERED CHOLESTEROLHEALTH CARE PROXY : STEP [id number] Epilepsy, unspecified , not intractable, without status epilepticusComments:LAST LEVEL IS JUST ABOVE THE CUT-OFF SO WE WILL INCREASE YOUR DEPAKOTE TO 3 TABS IN THE MORNING AND 2 TABS AT BEDTIME,Follow up:CHECK LEVEL IN 3 MO. ; APPT. IN 3 [id number] Epilepsy, unspecified, not intractable, without status epilepticusComments:LAST LEVEL IS JUST ABOVE THE CUT-OFF SO WE WILL INCREASE YOUR DEPAKOTE TO 3 TABS IN THE MORNING AND 2 TABS AT BEDTIME,Follow up:CHECK LEVEL IN 3 MO. ; APPT. IN 3 [id number] Adjustment disorder with depressed moodComments:cont. on current isatgmnX38.21 Adjustment disorder with depressed moodComments:cont. on current [id number] Mild intellectual disabilitiesComments:SUPPORTIVE CAREF70 Mild intellectual disabilitiesComments:SUPPORTIVE CAREJ45.909 Unspecified asthma, uncomplicatedComments:YOUR LUNGS SOUND GOOD TODAY Functional Status Functional Condition Comment Date Status Glasses Active Mental Status Description No Information Available Referrals Description No Information Available
[2019-05-31 18:53] VITALS: BP 119/76
--- NOTE | 2019-05-31 19:34 | UC ---
Lower Extremity/Ankle HPI - HPI Summary HPI Summary: left thigh pain that radiates to the knee for past 2 days, states "pulled a muscle", while taking a bath. Postive weight bearing, pain with walking. - History of Current Complaint Chief Complaint: UCLowerExtremity Stated Complaint: LEFT KNEE INJURY Time Seen by Provider: 05/31/19 19:32 Hx Obtained From: Patient Onset/Duration: Sudden Onset, Lasting Days Severity Initially: Severe Severity Currently: Severe Pain Intensity: 10 Aggravating Factor(s): Standing, Ambulation Alleviating Factor(s): Rest Able to Bear Weight: Yes - Allergies/Home Medications Allergies/Adverse Reactions: Allergies Allergy/AdvReac Type Severity Reaction Status Date / Time bupropion [From Wellbutrin] Allergy Anaphylatic Verified 05/31/19 18:53 Shock clindamycin Allergy Anaphylatic Verified 05/31/19 18:53 Shock diphenhydramine Allergy Difficulty Verified 05/31/19 18:53 [From Benadryl] Breathing Home Medications: Home Medications Levothyroxine TAB* [Synthroid 25 MCG TAB*] 25 mcg PO DAILY 10/22/16 [History Confirmed 05/31/19] Loxapine Succinate [Loxapine] 10 mg PO BEDTIME 10/22/16 [History Confirmed 05/31] Divalproex Sodium [Depakote] 1,500 mg PO BID 03/10/17 [History Confirmed ] Cholecalciferol TAB* [Vitamin D TAB*] 2,000 units PO BEDTIME 08/07/17 [History Confirmed 05/31/19] LoraTADine TAB(NF) [Claritin 10 MG TAB(NF)] 10 mg PO DAILY 08/07/17 [History Confirmed 05/31/19] PMH/Surg Hx/FS Hx/Imm Hx Previously Healthy: Yes - Surgical History Surgical History: Yes Surgery Procedure, Year, and Place: T&A age 17. EYE SURGERY - Family History Known Family History: Positive: Unknown - patient does not know his family history, he is intellectualy impaired, Respiratory Disease Negative: Other - NO JOINT LAXITY - Social History Alcohol Use: Occasionally Substance Use Type: None Smoking Status (MU): Former Smoker Have You Smoked in the Last Year: No When Did the Patient Quit Smoking/Using Tobacco: 2006 Household Exposure Type: Cigarettes - Immunization History Most Recent Influenza Vaccination: 2017 Most Recent Tetanus Shot: 10/22/16 Review of Systems All Other Systems Reviewed And Are Negative: Yes Musculoskeletal: Positive: Decreased ROM, Myalgia Is Patient Immunocompromised?: No Physical Exam Triage Information Reviewed: Yes Appearance: Well-Appearing, Well-Nourished, Pain Distress Vital Signs: Initial Vital Signs Temp 99.1 F 05/31/19 18:48 Pulse 70 05/31/19 18:48 Resp 16 05/31/19 18:48 BP 119/76 05/31/19 18:48 Pulse Ox 100 05/31/19 18:48 Vital Signs Reviewed: Yes Eye Exam: Normal ENT Exam: Normal Neck exam: Normal Respiratory Exam: Normal Cardiovascular Exam: Normal Abdominal Exam: Normal Musculoskeletal: Positive: Strength Intact, ROM Intact, No Edema Neurological Exam: Normal Psychological Exam: Normal Skin Exam: Normal Lower Extremity Course/Dx - Course Course Of Treatment: hx obtained, exam performed ,meds reviewed, educated on care of a muscle strain , patient has good range of motion, no deformity, pain in belly of lateral quad - Differential Dx/Diagnosis Differential Diagnosis/HQI/PQRI: Sprain, Strain Provider Diagnosis: Strain of left quadriceps Discharge ED - Sign-Out/Discharge Documenting (check all that apply): Patient Departure All imaging exams completed and their final reports reviewed: No Studies - Discharge Plan Condition: Stable Disposition: HOME Patient Education Materials: Muscle Strain (DC) Forms: *Work Release Referrals: Karla Harmon MD [Primary Care Provider] - Additional Instructions: 1. use the compression wrap for support 2. take a daily bath with 1-2 cups of epsom salts 3. tylenol as needed for pain - Billing Disposition and Condition Condition: STABLE Disposition: Home - Attestation Statements Provider Attestation: I was available for consult. This patient was seen by the GEORGE. The patient was not presented to, seen by, or examined by me. -Sandy
== END 2019-05-31 19:52 | disposition home or self-care (01) ==
LOC: UCCORT 17:42
DX: S76.112A Strain of left quadriceps muscle, fascia and tendon, initial encounter (principal); Z88.8 Allergy status to other drugs, medicaments and biological substances; Z88.1 Allergy status to other antibiotic agents; Z87.891 Personal history of nicotine dependence; X50.0XXA Overexertion from strenuous movement or load, initial encounter; Y93.E1 Activity, personal bathing and showering; Y92.9 Unspecified place or not applicable
CPT/HCPCS: 99212; G0463

== ENCOUNTER 2021-05-10 19:23 | Observation (INO) ==
[2021-05-10 20:46] LABS: ABS Eosinophils 0.2 10^3/ul (0-0.6); ABS Lymphocytes 3.6 10^3/ul (1.0-4.8); ABS Monocytes 0.7 10^3/ul (0-0.8); ABS Neutrophils 2.7 10^3/ul (1.5-7.7); Eosinophil % 2.7 %; Hematocrit 39 % (42-52); Hemoglobin 12.9 g/dL (14.0-18.0); Lymphocyte % 49.9 %; Mean Corpuscular HGB Conc 33 g/dL (31-36); Mean Corpuscular Hemoglobin 30 pg (27-31); Mean Corpuscular Volume 90 fL (80-94); Mean Platelet Volume 8.9 fL (7.4-10.4); Nucleated Red Blood Cells % 0.2; Platelet Count 282 10^3/uL (150-450); Red Blood Count 4.35 10^6 /uL (4.18-5.48); Red Cell Distribution Width 15 % (10-15); White Blood Count 7.3 10^3/uL (3.5-10.8)
[2021-05-10 20:49] LABS: Urine Appearance Clear; Urine Bilirubin Negative (Negative); Urine Blood Negative (Negative); Urine Color Yellow; Urine Glucose Negative (Negative); Urine Ketones Negative (Negative); Urine Nitrite Negative (Negative); Urine Protein Negative (Negative); Urine Specific Gravity 1.014 (1.002-1.030); Urine Urobilinogen Negative (Negative)
[2021-05-10 21:05] LABS: INR 1.05 (0.86-1.15)
[2021-05-10 21:08] LABS: ALT 47 U/L (7-52); Albumin 3.6 g/dL (3.2-5.2); Albumin/Globulin Ratio 1.5 (1-3); Alkaline Phosphatase 44 U/L (35-149); Blood Urea Nitrogen 17 mg/dL (6-24); CO2 Carbon Dioxide 25 mmol/L (22-32); Calcium 7.5 mg/dL (8.6-10.3); Chloride 107 mmol/L (101-111); Globulin 2.4 g/dL (2-4); Glucose 93 mg/dL (70-100); Sodium 137 mmol/L (135-145); eGFR CKD-EPI 126.6 (>60)
[2021-05-10 21:09] LABS: Urine Benzodiazepine Screen None Detected (None Detect); Urine Cannabinoids Screen None Detected (None Detect); Urine Opiates Screen None Detected (None Detect)
[2021-05-10 21:33] LABS: Alcohol, S < 13 mg/dL (<13)
[2021-05-10 21:52] LABS: Anion Gap 5 mmol/L (2-11); Magnesium 2.2 mg/dL (1.9-2.7); Potassium 4.6 mmol/L (3.5-5.0)
[2021-05-10 21:53] LABS: AST 32 U/L (13-39)
[2021-05-10] MEDS ORDERED: Albuterol HFA INHALER 8 gm MDI INH PRN (23:02)
[2021-05-10 23:17] LABS: Creatine Kinase 79 U/L (10-223)
[2021-05-11 00:07] LABS: TSH Ultra Thyroid Stim Horm 1.48 mcIU/mL (0.34-5.60)
[2021-05-11 03:49] LABS: Rapid COVID-19 Molecular Undetected (Undetected)
[2021-05-11 04:59] LABS: ABS Eosinophils 0.2 10^3/ul (0-0.6); ABS Lymphocytes 3.5 10^3/ul (1.0-4.8); ABS Monocytes 0.7 10^3/ul (0-0.8); ABS Neutrophils 2.7 10^3/ul (1.5-7.7); Eosinophil % 2.4 %; Hematocrit 42 % (42-52); Lymphocyte % 49.4 %; Mean Corpuscular HGB Conc 34 g/dL (31-36); Mean Corpuscular Hemoglobin 30 pg (27-31); Mean Corpuscular Volume 89 fL (80-94); Mean Platelet Volume 8.2 fL (7.4-10.4); Nucleated Red Blood Cells % 0.2; Platelet Count 260 10^3/uL (150-450); Red Blood Count 4.68 10^6 /uL (4.18-5.48); Red Cell Distribution Width 15 % (10-15); White Blood Count 7.1 10^3/uL (3.5-10.8)
[2021-05-11 05:05] LABS: INR 1.08 (0.86-1.15)
[2021-05-11 05:15] LABS: Calcium 8.6 mg/dL (8.6-10.3); Potassium 4.4 mmol/L (3.5-5.0); eGFR CKD-EPI 124.5 (>60)
[2021-05-11] MEDS ORDERED: LORazepam 2 mg VIAL 1 ml IV PUSH PRN (05:46)
[2021-05-11] MEDS ORDERED: Lorazepam PYXIS KEY PRN (05:46)
[2021-05-11] MEDS: LEVOCARNITINE 330 MG PO SCH ×2 (10:02→20:03)
[2021-05-11] MEDS ORDERED: Enoxaparin 40 MG/0.4 ML SYR SUBCUT SCH (18:00)
[2021-05-11] MEDS ORDERED: LOXAPINE SUCCINATE 10 MG PO SCH (21:00)
[2021-05-12] MEDS: LEVOCARNITINE 330 MG PO SCH (08:11)
[2021-05-12 12:04] VITALS: BP 124/56
== END 2021-05-12 13:55 | disposition home or self-care (01) ==
LOC: ED 19:23 → EDHOLD 19:23 → SUATTDRO 22:49 → SSU 05-11 04:15 → MEDTELE 05-11 07:49
PROVIDERS: ADMIT Internal Medicine; ATTEND Internal Medicine